=== PATIENT | female | born 1935 | race Caucasian/White ===

== ENCOUNTER → 2016-03-10 | Outpatient (CLI) | payer MEDICARE ==
[~2016-03-10] MED LIST: AMLO5 PO; ATOR20TA15 PO; BUDE1SUS2 EACH NARE; CARV25TA PO; CEPH-460 PO; CHOL1CAP6 PO; CITA10TA4 PO; CITA20 PO; CITA20TA4 PO; CO Q100C9 PO; COUM4TAB PO; CYAN1TAB24; FLAX10008 PO; FLUD.1 PO; GENTGEL EACH EYE; HYDR10TA65 PO; HYDR5TAB64 PO; KCL20 PO; LACTCAP7 PO; LACTCAP8 PO; LIPI20TA PO; MAGN250T11 PO; MAGN250T14 PO; METH10TA6 PO; METHY10 PO; NITR.4 SL; OMEP20TA PO; POTA10CA PO; RAMI10CA PO; RAMI10CA35 PO; REFR0.5D4 EACH EYE; TRAM50TA PO; VITA10002 PO; VITASPR PO; WARF4 PO; [UNRECOGNIZED DRUG - CODE] EACH NARE
[2016-03-10 08:57] LABS: INTERNATIONAL NORMALIZED RATIO 3.4 RATIO; PROTHROMBIN TIME - PATIENT 39.1 SEC (9.8-11.6)
== END ==
LOC: CLAB 08:31
PROVIDERS: ATTEND Internal Medicine Interventional Cardiology
DX: Z79.01 Long term (current) use of anticoagulants (principal)
CPT/HCPCS: 36415; 85610

== ENCOUNTER → 2016-03-15 | Outpatient (CLI) | payer MEDICARE ==
[2016-03-15 12:10] LABS: INTERNATIONAL NORMALIZED RATIO 1.5 RATIO; PROTHROMBIN TIME - PATIENT 17.1 SEC (9.8-11.6)
== END ==
LOC: CLAB 11:37
PROVIDERS: ATTEND Internal Medicine Interventional Cardiology
DX: Z51.81 Encounter for therapeutic drug level monitoring (principal); Z79.01 Long term (current) use of anticoagulants
CPT/HCPCS: 36415; 85610

== ENCOUNTER → 2016-04-01 | Outpatient (CLI) | payer MEDICARE ==
[2016-04-01 10:12] LABS: INTERNATIONAL NORMALIZED RATIO 2.4 RATIO
== END ==
LOC: CLAB 08:48
PROVIDERS: ATTEND Internal Medicine Interventional Cardiology
DX: Z79.01 Long term (current) use of anticoagulants (principal)
CPT/HCPCS: 36415; 85610

== ENCOUNTER → 2016-05-12 | Outpatient (CLI) | payer MEDICARE ==
[~2016-05-12] MED LIST changes: -CHOL1CAP6 PO; -CITA20 PO; -HYDR5TAB64 PO; -KCL20 PO; -LACTCAP7 PO; -LIPI20TA PO; -MAGN250T14 PO; -METH10TA6 PO; -NITR.4 SL; -RAMI10CA35 PO; -VITA10002 PO; -WARF4 PO; -[UNRECOGNIZED DRUG - CODE] EACH NARE
[2016-05-12 08:28] LABS: INTERNATIONAL NORMALIZED RATIO 1.8 RATIO
[2016-05-12 08:50] LABS: BICARBONATE 29.9 MEQ/L (21.0-32.0); POTASSIUM 4.2 MEQ/L (3.5-5.1)
== END ==
LOC: CLAB 05-11 07:48
PROVIDERS: ATTEND Internal Medicine Interventional Cardiology
DX: I42.0 Dilated cardiomyopathy (principal); I50.22 Chronic systolic (congestive) heart failure; Z79.01 Long term (current) use of anticoagulants
CPT/HCPCS: 36415; 80048; 85610

== ENCOUNTER → 2016-05-25 | Outpatient (CLI) | payer MEDICARE ==
[2016-05-25 09:42] LABS: INTERNATIONAL NORMALIZED RATIO 1.8 RATIO; PROTHROMBIN TIME - PATIENT 20.2 SEC (9.8-11.6)
== END ==
LOC: CLAB 09:10
PROVIDERS: ATTEND Internal Medicine Interventional Cardiology
DX: I11.9 Hypertensive heart disease without heart failure (principal); I42.0 Dilated cardiomyopathy; I35.1 Nonrheumatic aortic (valve) insufficiency; R00.2 Palpitations; I44.1 Atrioventricular block, second degree
CPT/HCPCS: 36415; 85610

== ENCOUNTER → 2016-06-08 | Outpatient (CLI) | payer MEDICARE ==
[2016-06-08 09:59] LABS: INTERNATIONAL NORMALIZED RATIO 1.8 RATIO; PROTHROMBIN TIME - PATIENT 20.5 SEC (9.8-11.6)
== END ==
LOC: CLAB 09:20
PROVIDERS: ATTEND Internal Medicine Interventional Cardiology
DX: G45.9 Transient cerebral ischemic attack, unspecified (principal); Z79.01 Long term (current) use of anticoagulants
CPT/HCPCS: 36415; 85610

== ENCOUNTER 2016-06-09 19:36 | Emergency (ER) | payer MEDICARE ==
[~2016-06-09] VITALS: Ht 160 cm; Wt 65.0 kg
[~2016-06-09 19:36] MED LIST changes: -AMLO5 PO; -CEPH-460 PO; -CITA10TA4 PO; -CITA20TA4 PO; -COUM4TAB PO; -CYAN1TAB24; -GENTGEL EACH EYE; -HYDR10TA65 PO; -METHY10 PO; -POTA10CA PO; -REFR0.5D4 EACH EYE; -TRAM50TA PO
[2016-06-09 19:40] VITALS: BP 100/57; PULSE 61; RESP 15; TEMP 98.4; O2SAT 97
[2016-06-09] MEDS ORDERED: SODIUM CHLORIDE 0.9% FLUSH 10 ML FLUSH IV FLUSH PRN (23:15)
[2016-06-09] MEDS ORDERED: DICYCLOMINE HCL 20 MG/2 ML VIAL IM ONE (23:15)
[2016-06-09] MEDS ORDERED: CYAN1TAB24 (23:22)
[2016-06-09] MEDS ORDERED: AMLO5 PO (23:22)
[2016-06-09] MEDS ORDERED: CITA10TA4 PO (23:22)
[2016-06-09] MEDS ORDERED: POTA10CA PO (23:22)
[2016-06-09] MEDS ORDERED: METHY10 PO (23:22)
[2016-06-09] MEDS ORDERED: COUM4TAB PO (23:22)
[2016-06-09] MEDS ORDERED: HYDR10TA65 PO (23:22)
--- NOTE | 2016-06-09 23:44 | PD ---
HPI Chief Complaint: Abdominal Pain Time Seen by Provider: 23:11 Travel History International Travel<30 days: No Contact w/Intl Traveler<30days: No Traveled to known affect area: No History of Present Illness HPI Patient is an 80 year old female presents to the er for evaluation of RUQ abdominal and generalized abdominal cramping for the past few hours. Patient has fairly non-specific descriptors "when i lean forward it feels really full", "it feels like things are balling up and getting stuck when i lean forward." Mild nausea without vomiting. No change in bowel habits, no fevers. PFSH Past Medical History Hx Anticoagulant Therapy: Yes (COUMADIN) AAA: Yes (ASCENDING AORTIC ANEURSYM) Anemia: Yes Arthritis: Yes Atrial Fibrillation: Yes Autoimmune Disease: No Blood Disorders: No Anxiety: Yes Depression: Yes Heart Rhythm Problems: Yes Cancer: No Cardiac Catheterization: Yes (AVR; AORTIC ROOT ANEURYSM REPAIR) Cardiovascular Problems: Yes (OPEN HEART SURG-2005, HTN) High Cholesterol: No Chemotherapy: No Chest Pain: Yes Congestive Heart Failure: Yes COPD: Yes Coronary Artery Disease: Yes Diabetes: No Diminished Hearing: No Endocrine: No Gastrointestinal Disorders: Yes (HEMHORROIDS) GERD: Yes Glaucoma: No Genitourinary: Yes Headaches: Yes Hepatitis: No Hiatal Hernia: No Hypertension: Yes Immune Disorder: No Implanted Vascular Access Dvce: Yes Kidney Stones: Yes Medical other: Yes (arthritis) Musculoskeletal: Yes (CERVICAL LAMINECTOMY, SPINAL STENOSIS) Neurologic: Yes Psychiatric: No Reproductive: No Respiratory: No Immunizations Current: Yes Migraines: Yes Myocardial Infarction: No Radiation Therapy: No Renal Failure: Yes (ARF, STENT) Seizures: No Sleep Apnea: Yes (CPAP HS) Thyroid Disease: No PNEUMOCCOCAL Vaccine (Year): 2010 ?: Not Menopausal: Yes : 2 Para: 2 Ovarian Cysts: Yes Past Surgical History Abdominal Aneurysm Repair: Yes (ASCENDING AORTA REPAIR 2005) Abdominal Surgery: Yes AICD: Yes Appendectomy: Yes Arteriovenous Shunt: No Body Medical Devices: AORTIC VALVE REPLACEMENT Cardiac Surgery: Yes (aortic valve, pacemaker placement) Cholecystectomy: Yes Ear Surgery: No Endocrine Surgery: Yes (SHASHI ADRENALS REMOVED-OCTOBER 01, 2013) Eye Surgery: Yes (CATARACT SX BILATERAL) Genitourinary Surgery: No Gynecologic Surgery: Yes Hysterectomy: Yes Insulin Pump: No Joint Replacement: Yes (R HIP) Neurologic Surgery: Yes (brain for tumor) Oral Surgery: No Pacemaker: Yes Thoracic Surgery: Yes (2005) Valve Replacement: Yes (AORTIC VALVE REPLACEMENT ) Other Surgery: Yes (SURGICAL REPAIR HEMATOMA, R ANKLE) Social History Alcohol Use: No Tobacco Use: No Substance Use: No Allergies-Medications (Allergen,Severity, Reaction): Coded Allergies: Bactrim (Verified Allergy, Severe, 06/09/16) due to coumadin intake and digoxin Biaxin (Verified Allergy, Severe, 06/09/16) ON DIGOXIN Ciprofloxacin (Verified Allergy, Severe, 06/09/16) due to taking coumadin and digoxin Flagyl (Verified Allergy, Severe, 06/09/16) because of being on coumadin and digoxin Horse Serum Proteins (Verified Allergy, Severe, PATIENT NOT SURE, 06/09/16) Tetracycline (Verified Allergy, Severe, 06/09/16) due to being on coumadin and digoxin Zithromax (Verified Allergy, Severe, 06/09/16) ON DIGOXIN Ampicillin (Verified Allergy, Unknown, 06/09/16) CAN NOT TAKE D/T COUMADIN Diflucan (Verified Allergy, Unknown, 06/09/16) CAN NOT TAKE D/T COUMADIN MRI PRECAUTION (Verified Adverse Reaction, Severe, NON COMPATIBLE PACEMAKER 11/13/15 LRS, 06/09/16) Uncoded Allergies: no mri (Adverse Reaction, Severe, pacemaker, 11/13/15) pacemaker in place Reported Meds & Prescriptions Reported Meds & Active Scripts Active Tramadol (Tramadol HCl) 50 Mg Tab 50 Mg PO Q6H PRN Reported Norvasc (Amlodipine Besylate) 5 Mg Tab 5 Mg PO DAILY B12 (Cyanocobalamin) 1,000 Mcg Tab DAILY Potassium Chloride ER (Potassium Chloride) 10 Meq Cap 10 Meq PO DAILY Ritalin IR (Methylphenidate HCl) 10 Mg Tab 10 Mg PO DAILY Hydrocortisone 10 Mg Tab 10 Mg PO DIRECTED Take with food to decrease GI upset Coumadin (Warfarin) 4 Mg Tab 4 Mg PO MWF AND 3MG OTHER Citalopram (Citalopram Hydrobromide) 10 Mg Tab 10 Mg PO HS Ramipril 10 Mg Cap 10 Mg PO DAILY Omeprazole 20 Mg Tab 20 Mg PO DAILY Magnesium Oxide 250 Mg Tab 250 Mg PO DAILY Probiotic (Lactobacillus Acidophilus) 1 Cap Cap 1 Cap PO DAILY Fludrocortisone (Fludrocortisone Acetate) 0.1 Mg Tab 0.1 Mg PO MWF Flaxseed Oil [place]-3 (Flaxseed (Linseed)) 1,000 Mg Cap 1 Cap PO DAILY Vitamin D3 (Cholecalciferol) 1,000 Unit/[place] 1,000 PO DAILY Carvedilol 25 Mg Tab 25 Mg PO BID Atorvastatin (Atorvastatin Calcium) 20 Mg Tab 20 Mg PO HS Co Q 10 (Coenzyme Q10 (Ubidecarenone)) 100 Mg Cap 1 Cap PO DAILY Review of Systems Except as stated in HPI: all other systems reviewed are Neg Physical Exam Narrative GENERAL: WD/WN quite pleasant in nad. SKIN: Warm and dry. HEAD: Atraumatic. Normocephalic. EYES: Pupils equal and round. No scleral icterus. No injection or drainage. ENT: No nasal bleeding or discharge. Mucous membranes pink and moist. NECK: Trachea midline. No JVD. CARDIOVASCULAR: Regular rate and rhythm. RESPIRATORY: No accessory muscle use. Clear to auscultation. Breath sounds equal bilaterally. GASTROINTESTINAL: Abdomen soft, non-tender, nondistended. Hepatic and splenic margins not palpable. MUSCULOSKELETAL: Extremities without clubbing, cyanosis, or edema. No obvious deformities. NEUROLOGICAL: Awake and alert. No obvious cranial nerve deficits. Motor grossly within normal limits. Five out of 5 muscle strength in the arms and legs. Normal speech. PSYCHIATRIC: Appropriate mood and affect; insight and judgment normal. Data Data Last Documented VS Orders Complete Blood Count With Diff (06/09/16 23:12) Comprehensive Metabolic Panel (06/09/16 23:12) Lipase (06/09/16 23:12) Urinalysis - C+S If Indicated (06/09/16 23:12) Iv Access Insert/Monitor (06/09/16 23:12) Ecg Monitoring (06/09/16 23:12) Oximetry (06/09/16 23:12) Sodium Chloride 0.9% Flush (Ns Flush) (06/09/16 23:15) Electrocardiogram (06/09/16 23:12) Dicyclomine Inj (Bentyl Inj) (06/09/16 23:15) Troponin I (06/09/16 23:12) Acetaminophen (Tylenol) (06/10/16 01:45) Ct Abd/Pel W/O Iv Contrast (06/10/16 ) Labs Laboratory Tests Test 06/09/16 06/09/16 23:35 23:55 Sodium Level 138 MEQ/L Potassium Level 4.5 MEQ/L Chloride Level 103 MEQ/L Carbon Dioxide Level 29.6 MEQ/L Anion Gap 5 MEQ/L Blood Urea Nitrogen 19 MG/DL Creatinine 1.15 MG/DL Estimat Glomerular Filtration 45 ML/MIN Rate Random Glucose 83 MG/DL Calcium Level 9.2 MG/DL Total Bilirubin 0.8 MG/DL Aspartate Amino Transf 22 U/L (AST/SGOT) Alanine Aminotransferase 18 U/L (ALT/SGPT) Alkaline Phosphatase 49 U/L Troponin I LESS THAN 0.02 NG/ML Total Protein 6.4 GM/DL Albumin 3.8 GM/DL Lipase 227 U/L Urine Color LIGHT-YELLOW Urine Turbidity CLEAR Urine pH 7.0 Urine Specific [place] 1.007 Urine Protein NEG mg/dL Urine Glucose (UA) NEG mg/dL Urine Ketones NEG mg/dL Urine Occult Blood NEG Urine Nitrite NEG Urine Bilirubin NEG Urine Urobilinogen LESS THAN 2.0 MG/DL Urine Leukocyte Esterase NEG Urine WBC 2 /hpf Urine Mucus FEW /lpf Microscopic Urinalysis Comment CULT NOT INDICATED MDM Medical Decision Making Medical Screen Exam Complete: Yes Emergency Medical Condition: Yes Differential Diagnosis Abdominal cramping, acute abdomen unlikely, UTI, cholecystitis, SBO, Pancreatitis. Narrative Course Roomed in ED. Has benign abdominal exam. Non toxic appearance. Initial workup including EKG, CBC, CMP, TN, Lipase, UA all show no source of discomfort. CT examination shows: Last 24 hours Impressions Abdomen/Pelvis CT 06/10/16 0000 Signed Impressions: Service Date/Time: June 01:28 - CONCLUSION: 1. 6.3 x 2.7 cm area of increased density involving the omentum. The density is still approaching that of fat. I feel this relates to an acute inflammatory process. I would suggest a short term followup CT of the abdomen to document stability. I would suggest this be performed in 3-6 months. 2. Colonic diverticulosis without acute inflammation. 3. Prior cholecystectomy. 4. Cardiomegaly. 5. Chronic interstitial changes within the lung bases. 6. 3 mm nonobstructing right renal stone. Gee Kimball Jr., MD Discussed results with patient and . They are relieved. No definative cause of abdominal discomfort isolated. Discussed follow up with PCP and return to ED criteria. Diagnosis Primary Impression: Abdominal cramping Med/Other Pt SpecificInfo: Prescription(s) given Scripts Tramadol 50 Mg Tab50 Mg PO Q6H PRN (PAIN) #20 TAB Ref 0 Prov:Nura Cunningham MD 06/10/16 Disposition: 01 DISCHARGE HOME Condition: Stable Nura Cunningham MD Jun 09, 2016 23:44
[2016-06-09 23:47] LABS: AUTOMATED NEUTROPHIL # 4.2 TH/MM3 (1.8-7.7); BASOPHIL # 0.1 TH/MM3 (0-0.2); BASOPHIL % 1.1 % (0.0-2.0); EOSINOPHIL % 0.7 % (0.0-4.0); HEMATOCRIT 38.4 % (35.0-46.0); HEMO FLAGS DIFF FINAL; LYMPH % 20.9 % (9.0-44.0); LYMPHOCYTE # 1.3 TH/MM3 (1.0-4.8); MEAN CORPUSCULAR HEMOGLOBIN 29.6 PG (27.0-34.0); MEAN CORPUSCULAR HGB CONC 32.9 % (32.0-36.0); NEUT % 67.3 % (16.0-70.0); PLATELET COUNT 159 TH/MM3 (150-450); RED BLOOD COUNT 4.26 MIL/MM3 (4.00-5.30); RED CELL DISTRIBUTION WIDTH 15.9 % (11.6-17.2); WHITE BLOOD COUNT 6.2 TH/MM3 (4.0-11.0)
[2016-06-10 00:06] LABS: ALKALINE PHOSPHATASE 49 U/L (45-117); TOTAL BILIRUBIN ADULT 0.8 MG/DL (0.2-1.0)
[2016-06-10 00:09] LABS: ALT (GPT) 18 U/L (10-53); ANION GAP 5 MEQ/L (5-15); AST (GOT) 22 U/L (15-37); BICARBONATE 29.6 MEQ/L (21.0-32.0); BLOOD UREA NITROGEN 19 MG/DL (7-18); CHLORIDE 103 MEQ/L (98-107); GLOMERULAR FILTRATION RATE 45 ML/MIN (>89); POTASSIUM 4.5 MEQ/L (3.5-5.1); SODIUM (NA) 138 MEQ/L (136-145)
[2016-06-10 00:23] LABS: BLOOD, URINE NEG (NEG); COMMENT (UR) CULT NOT INDICATED; CULTURE IF INDICATED CULT NOT INDICATED; GLUCOSE,URINE NEG (NEG); KETONE, URINE NEG (NEG); MUCUS URINE FEW /lpf (OCC); NITRITE,URINE NEG (NEG); URINE COLOR LIGHT-YELLOW (YELLW/STRAW)
[2016-06-10 01:01] VITALS: RESP 18; O2SAT 97
[2016-06-10] MEDS ORDERED: ACETAMINOPHEN 325 MG TAB PO ONE (01:45)
--- NOTE | 2016-06-10 01:51 | RADRPT ---
EXAM DATE/TIME: 06/10/2016 01:28 [facility] COMPARISON: No previous studies available for comparison. INDICATIONS : Abdomen pain. ORAL CONTRAST: No oral contrast ingested. RADIATION DOSE: 9.96 CTDIvol (mGy) MEDICAL HISTORY : Aneurysm, abdominal. Cardiovascular disease Hypertension.COPD SURGICAL HISTORY : Abdominal aortic aneurysm repair. Appendectomy.Hysterectomy.GB Pacemaker Aortiv valve ENCOUNTER: Initial ACUITY: 1 day PAIN SCALE: 3/10 LOCATION: abdomen TECHNIQUE: Volumetric scanning of the abdomen and pelvis was performed. Using automated exposure control and ad justment of the mA and/or kV according to patient size, radiation dose was kept as low as reasonably achievable to obtain optimal diagnostic quality images. FINDINGS: LOWER LUNGS: Mild bronchiectasis within the right lung base. Mild chronic interstitial changes within both lung ba ses. Heart is mildly enlarged. Coronary artery atherosclerotic calcifications noted. LIVER: Homogeneous density without lesion. There is no dilation of the biliary tree. The gallbladder is alba gically absent. SPLEEN: Normal size without lesion. PANCREAS: Within normal limits. KIDNEYS: Cortical scarring is seen involving the upper pole the left kidney. A 3 mm faintly calcified nonobstr ucting right renal stone. No hydronephrosis involving either kidney. ADRENAL GLANDS: Within normal limits. VASCULAR: He aorta is diffusely calcified. No aneurysmal change is observed. BOWEL/MESENTERY: There is an oval-shaped area of increased density involving the omentum. This projects between the le ft lobe of the liver and anterior abdominal wall. It measures 6.3 x 2.7 cm. The bowel structures are otherwise unremarkable with exception of scattered colonic diverticuli. Small bowel and stomach are n ormal. ABDOMINAL WALL: Within normal limits. RETROPERITONEUM: There is no lymphadenopathy. BLADDER: No wall thickening or mass. REPRODUCTIVE: Within normal limits. INGUINAL: There is no lymphadenopathy or hernia. MUSCULOSKELETAL: A scoliotic and degenerative lumbar spine. Right hip prosthesis. CONCLUSION: 1. 6.3 x 2.7 cm area of increased density involving the omentum. The density is still approaching breana t of fat. I feel this relates to an acute inflammatory process. I would suggest a short term followup CT of the abdomen to document stability. I would suggest this be performed in 3-6 months. 2. Colonic diverticulosis without acute inflammation. 3. Prior cholecystectomy. 4. Cardiomegaly. 5. Chronic interstitial changes within the lung bases. 6. 3 mm nonobstructing right renal stone. Gee Kimball Jr., MD on June 10, 2016 at 1:44 Board Certified Radiologist. This report was verified electronically.
[2016-06-10] MEDS ORDERED: TRAM50TA PO (02:18)
--- NOTE | 2016-06-10 12:50 | EKG ---
Date Performed: 06/10/2016 Time Performed: 00:22:24 PTAGE: 80 years EKG: ELECTRONIC ATRIAL PACEMAKER ELECTRONIC VENTRICULAR PACEMAKER ABNORMAL RHYTHM ECG PREVIOUS TRACING : 11/14/2015 09.28 Compared to prior tracing no significant change DOCTOR: Federico Shine Interpretating Date/Time 06/10/2016 12:49:03
[2016-08-24] MEDS ORDERED: GENTGEL EACH EYE (15:47)
[2016-08-24] MEDS ORDERED: REFR0.5D4 EACH EYE (15:47)
== END 2016-06-10 02:49 | disposition home or self-care (01) ==
LOC: NEPC 19:36
DX: R10.84 Generalized abdominal pain (principal); I10 Essential (primary) hypertension; I25.10 Atherosclerotic heart disease of native coronary artery without angina pectoris; I50.9 Heart failure, unspecified; R94.31 Abnormal electrocardiogram [ECG] [EKG]
CPT/HCPCS: 74176; 80053; 81001; 83690; 84484; 85025; 93005; 96372; 99284; J0500

== ENCOUNTER → 2016-06-21 | Outpatient (CLI) | payer MEDICARE ==
[~2016-06-21] MED LIST changes: +AMLO5 PO; -BUDE1SUS2 EACH NARE; +CEPH-460 PO; +CITA10TA4 PO; +CITA20TA4 PO; +COUM4TAB PO; +CYAN1TAB24; +GENTGEL EACH EYE; +HYDR10TA65 PO; +METHY10 PO; +POTA10CA PO; +REFR0.5D4 EACH EYE; +TRAM50TA PO
[2016-06-21 08:51] LABS: HEMATOCRIT 37.5 % (35.0-46.0); MEAN CELL VOLUME 90.8 FL (80.0-100.0); MEAN CORPUSCULAR HEMOGLOBIN 30.5 PG (27.0-34.0); MEAN CORPUSCULAR HGB CONC 33.6 % (32.0-36.0); PLATELET COUNT 167 TH/MM3 (150-450); RED BLOOD COUNT 4.13 MIL/MM3 (4.00-5.30); RED CELL DISTRIBUTION WIDTH 16.2 % (11.6-17.2); REVIEW FLAG FINAL; WHITE BLOOD COUNT 6.4 TH/MM3 (4.0-11.0)
[2016-06-21 09:23] LABS: ALKALINE PHOSPHATASE 54 U/L (45-117); ALT (GPT) 18 U/L (10-53); ANION GAP 6 MEQ/L (5-15); AST (GOT) 18 U/L (15-37); BICARBONATE 30.1 MEQ/L (21.0-32.0); BLOOD UREA NITROGEN 15 MG/DL (7-18); CHLORIDE 106 MEQ/L (98-107); GLOMERULAR FILTRATION RATE 43 ML/MIN (>89); GLUCOSE,FASTING 75 MG/DL (74-99); HDL CHOLESTEROL 88.9 MG/DL (40.0-60.0); LDL CHOLESTEROL 22 MG/DL (0-99); POTASSIUM 4.2 MEQ/L (3.5-5.1); SODIUM (NA) 142 MEQ/L (136-145); TOTAL BILIRUBIN ADULT 0.7 MG/DL (0.2-1.0)
== END ==
LOC: CLAB 08:10
PROVIDERS: ATTEND Family Medicine
DX: G45.9 Transient cerebral ischemic attack, unspecified (principal); H34.00 Transient retinal artery occlusion, unspecified eye; M79.2 Neuralgia and neuritis, unspecified; I42.8 Other cardiomyopathies; Z95.2 Presence of prosthetic heart valve; I10 Essential (primary) hypertension; E27.1 Primary adrenocortical insufficiency
CPT/HCPCS: 36415; 80053; 80061; 84443; 85027

== ENCOUNTER → 2016-06-25 | Outpatient (CLI) | payer MEDICARE ==
[2016-06-25 11:23] LABS: INTERNATIONAL NORMALIZED RATIO 2.2 RATIO; PROTHROMBIN TIME - PATIENT 25.7 SEC (9.8-11.6)
== END ==
LOC: CLAB 10:52
PROVIDERS: ATTEND Internal Medicine Interventional Cardiology
DX: G45.9 Transient cerebral ischemic attack, unspecified (principal); Z79.01 Long term (current) use of anticoagulants
CPT/HCPCS: 36415; 85610

== ENCOUNTER → 2016-06-28 | Outpatient (CLI) | payer MEDICARE ==
--- NOTE | 2016-06-30 08:48 | RSPPFT ---
DATE OF PROCEDURE: 06/28/16 COMMENTS: VOLUMES DYNAMIC: FVC and FEV1 normal. STATIC: TLC, RV and FRC normal. FLOWS: FEV1% and FEF 25-75 normal. DIFFUSION: Mildly reduced. FLOW VOLUME LOOP: Normal configuration. IMPRESSION: Essentially normal pulmonary functions with no reduction in volumes or flows. There is no response to bronchodilator and airways resistance is normal. There is a mild reduction in diffusion at 52%.
== END ==
LOC: HRSP 10:39
PROVIDERS: ATTEND Internal Medicine
DX: J84.10 Pulmonary fibrosis, unspecified (principal)
CPT/HCPCS: 94060; 94620; 94726; 94729

== ENCOUNTER → 2016-07-12 | Outpatient (CLI) | payer MEDICARE ==
[2016-07-12 10:58] LABS: INTERNATIONAL NORMALIZED RATIO 1.8 RATIO; PROTHROMBIN TIME - PATIENT 19.9 SEC (9.8-11.6)
== END ==
LOC: CLAB 09:45
PROVIDERS: ATTEND Internal Medicine Interventional Cardiology
DX: G45.9 Transient cerebral ischemic attack, unspecified (principal); Z79.01 Long term (current) use of anticoagulants
CPT/HCPCS: 36415; 85610

== ENCOUNTER → 2016-07-19 | Outpatient (CLI) | payer MEDICARE ==
[~2016-07-19] MED LIST changes: +COUM3TAB PO; +COUM5TAB PO; +HYDR5TAB64 PO
[2016-07-19 08:37] LABS: HEMATOCRIT 38.9 % (35.0-46.0); MEAN CELL VOLUME 90.4 FL (80.0-100.0); MEAN CORPUSCULAR HEMOGLOBIN 29.3 PG (27.0-34.0); MEAN CORPUSCULAR HGB CONC 32.4 % (32.0-36.0); PLATELET COUNT 147 TH/MM3 (150-450); RED CELL DISTRIBUTION WIDTH 16.4 % (11.6-17.2); REVIEW FLAG FINAL; WHITE BLOOD COUNT 5.8 TH/MM3 (4.0-11.0)
== END ==
LOC: CLAB 08:06
PROVIDERS: ATTEND Internal Medicine Interventional Cardiology
DX: R06.02 Shortness of breath (principal); I50.9 Heart failure, unspecified; Z79.01 Long term (current) use of anticoagulants
CPT/HCPCS: 36415; 83880; 85027

== ENCOUNTER → 2016-07-29 | Outpatient (CLI) | payer MEDICARE ==
[2016-07-29 11:47] LABS: INTERNATIONAL NORMALIZED RATIO 2.3 RATIO; PROTHROMBIN TIME - PATIENT 26.2 SEC (9.8-11.6)
== END ==
LOC: CLAB 10:49
PROVIDERS: ATTEND Internal Medicine Interventional Cardiology
DX: G45.9 Transient cerebral ischemic attack, unspecified (principal); Z79.01 Long term (current) use of anticoagulants
CPT/HCPCS: 36415; 85610

== ENCOUNTER → 2016-08-19 | Outpatient (CLI) | payer MEDICARE ==
[2016-08-19 11:36] LABS: INTERNATIONAL NORMALIZED RATIO 2.7 RATIO; PROTHROMBIN TIME - PATIENT 31.5 SEC (9.8-11.6)
== END ==
LOC: CLAB 11:00
PROVIDERS: ATTEND Internal Medicine Interventional Cardiology
DX: G45.9 Transient cerebral ischemic attack, unspecified (principal); Z79.01 Long term (current) use of anticoagulants
CPT/HCPCS: 36415; 85610

== ENCOUNTER 2016-08-21 15:28 | Emergency (ER) | payer MEDICARE ==
[~2016-08-21] VITALS: Ht 160 cm; Wt 65.0 kg
[~2016-08-21 15:28] MED LIST changes: -CEPH-460 PO; -CITA20TA4 PO; -COUM3TAB PO; -COUM5TAB PO; -GENTGEL EACH EYE; -HYDR5TAB64 PO; -REFR0.5D4 EACH EYE
[2016-08-21 15:30] VITALS: BP 132/67; PULSE 62; RESP 20; TEMP 98.4; O2SAT 94
[2016-08-21 15:54] VITALS: BP 146/77; PULSE 59; RESP 16; TEMP 98.3; O2SAT 98
--- NOTE | 2016-08-21 16:09 | PD ---
HPI Chief Complaint: Dizziness Time Seen by Provider: 16:08 Travel History International Travel<30 days: No Contact w/Intl Traveler<30days: No Traveled to known affect area: No History of Present Illness HPI 80-year-old female with a history of CAD, hypertension, hyperlipidemia, [place]' s disease status post bilateral adrenalectomy on steroids, pituitary tumor status post resection, heart failure, aortic valve and root replacement with bioprosthetic valve, AICD pacemaker presents to the emergency department for evaluation of blurred vision and sparkling vision with dizziness. The patient states that for the past week she's had some blurred vision and feels as though her vision is "sparkly." States that she has had symptoms like this before but she had eye surgery that corrected these symptoms. States that today she began to feel lightheaded, weak and felt as though she was going to pass out. States she's had nausea for the past week with no vomiting. Denies any one-sided weakness, slurred speech, facial droop, numbness or tingling, fever, chills, cough or cold symptoms. Denies any other complaints. PFSH Past Medical History Hx Anticoagulant Therapy: Yes (CUMIDIN ) AAA: Yes (ASCENDING AORTIC ANEURSYM) Anemia: Yes Arthritis: Yes Atrial Fibrillation: Yes Autoimmune Disease: No Blood Disorders: No Anxiety: Yes Depression: Yes Heart Rhythm Problems: Yes Cancer: No Cardiac Catheterization: Yes (AVR; AORTIC ROOT ANEURYSM REPAIR) Cardiovascular Problems: Yes (AORTIC VALVE REPLACED, CHF) High Cholesterol: No Chemotherapy: No Chest Pain: Yes Congestive Heart Failure: Yes COPD: Yes Cerebrovascular Accident: Yes (TIA ) Coronary Artery Disease: Yes Diabetes: No Diminished Hearing: No Endocrine: No Gastrointestinal Disorders: Yes (HEMHORROIDS) GERD: Yes Glaucoma: No Genitourinary: Yes Headaches: Yes Hepatitis: No Hiatal Hernia: No Hypertension: Yes Immune Disorder: No Implanted Vascular Access Dvce: Yes Kidney Stones: Yes Medical other: Yes (arthritis) Musculoskeletal: Yes (CERVICAL LAMINECTOMY, SPINAL STENOSIS) Neurologic: Yes Psychiatric: No Reproductive: No Respiratory: No Immunizations Current: Yes Migraines: Yes Myocardial Infarction: No Radiation Therapy: No Renal Failure: Yes (ARF, STENT) Seizures: No Sleep Apnea: Yes (CPAP HS) Thyroid Disease: No PNEUMOCCOCAL Vaccine (Year): 2010 Menopausal: Yes : 2 Para: 2 Ovarian Cysts: Yes Past Surgical History Abdominal Aneurysm Repair: Yes (ASCENDING AORTA REPAIR 2005) Abdominal Surgery: Yes AICD: Yes Appendectomy: Yes Arteriovenous Shunt: No Body Medical Devices: AORTIC VALVE REPLACEMENT Cardiac Surgery: Yes (aortic valve, pacemaker placement) Cholecystectomy: Yes Ear Surgery: No Endocrine Surgery: Yes (SHASHI ADRENALS REMOVED-OCTOBER 01, 2013) Eye Surgery: Yes (CATARACT SX BILATERAL) Genitourinary Surgery: No Gynecologic Surgery: Yes Hysterectomy: Yes Insulin Pump: No Joint Replacement: Yes (R HIP) Neurologic Surgery: Yes (brain for tumor) Oral Surgery: No Pacemaker: Yes Thoracic Surgery: Yes (2005) Valve Replacement: Yes (AORTIC VALVE REPLACEMENT ) Other Surgery: Yes (SURGICAL REPAIR HEMATOMA, R ANKLE) Social History Alcohol Use: No Tobacco Use: No Substance Use: No Allergies-Medications (Allergen,Severity, Reaction): Coded Allergies: Bactrim (Verified Allergy, Severe, 08/21/16) due to coumadin intake and digoxin Biaxin (Verified Allergy, Severe, 08/21/16) ON DIGOXIN Ciprofloxacin (Verified Allergy, Severe, 08/21/16) due to taking coumadin and digoxin Flagyl (Verified Allergy, Severe, 08/21/16) because of being on coumadin and digoxin Horse Serum Proteins (Verified Allergy, Severe, PATIENT NOT SURE, 08/21/16) Tetracycline (Verified Allergy, Severe, 08/21/16) due to being on coumadin and digoxin Zithromax (Verified Allergy, Severe, 08/21/16) ON DIGOXIN Ampicillin (Verified Allergy, Unknown, 08/21/16) CAN NOT TAKE D/T COUMADIN Diflucan (Verified Allergy, Unknown, 08/21/16) CAN NOT TAKE D/T COUMADIN MRI PRECAUTION (Verified Adverse Reaction, Severe, NON COMPATIBLE PACEMAKER 11/13/15 LRS, 08/21/16) Uncoded Allergies: no mri (Adverse Reaction, Severe, pacemaker, 11/13/15) pacemaker in place Reported Meds & Prescriptions Reported Meds & Active Scripts Active Reported Citalopram (Citalopram Hydrobromide) 20 Mg Tab 20 Mg PO DAILY B12 (Cyanocobalamin) 1,000 Mcg Tab DAILY Potassium Chloride ER (Potassium Chloride) 10 Meq Cap 10 Meq PO DAILY Ritalin IR (Methylphenidate HCl) 10 Mg Tab 10 Mg PO DAILY Hydrocortisone 10 Mg Tab 10 Mg PO DIRECTED Take with food to decrease GI upset Ramipril 10 Mg Cap 10 Mg PO DAILY Omeprazole 20 Mg Tab 20 Mg PO DAILY Magnesium Oxide 250 Mg Tab 250 Mg PO DAILY Probiotic (Lactobacillus Acidophilus) 1 Cap Cap 1 Cap PO DAILY Fludrocortisone (Fludrocortisone Acetate) 0.1 Mg Tab 0.1 Mg PO MWF Flaxseed Oil [place]-3 (Flaxseed (Linseed)) 1,000 Mg Cap 1 Cap PO DAILY Vitamin D3 (Cholecalciferol) 1,000 Unit/[place] 1,000 PO DAILY Carvedilol 25 Mg Tab 25 Mg PO BID Atorvastatin (Atorvastatin Calcium) 20 Mg Tab 20 Mg PO HS Co Q 10 (Coenzyme Q10 (Ubidecarenone)) 100 Mg Cap 1 Cap PO DAILY Review of Systems Except as stated in HPI: all other systems reviewed are Neg Physical Exam Narrative GENERAL: Well-nourished and well-developed pleasant elderly female patient in no acute distress who is nontoxic appearing. SKIN: Warm and dry. HEAD: Normocephalic and atraumatic. No facial droop. EYES: No injection, drainage, or hyphema noted. PERRLA. EOMI. ENT: No nasal drainage noted. Oropharynx is clear. NECK: Supple and the trachea is midline. CARDIOVASCULAR: Regular rate and rhythm. RESPIRATORY: Breath sounds are equal bilaterally with no accessory muscle use, wheezing, rhonchi, or crackles. GASTROINTESTINAL: Abdomen is soft, non-tender, and nondistended. MUSCULOSKELETAL: No obvious deformities, swelling, cyanosis, or ecchymosis is present throughout the upper and lower extremities. Patient has full range of motion without any signs of neurovascular compromise. Strength 5/5 upper and lower extremities and equal bilaterally. NEUROLOGICAL: Awake, alert, and oriented. Normal speech and gait. Normal heel- to-lopez test. Cranial nerves are grossly intact. Data Data Last Documented VS Vital Signs Date Time Temp Pulse Resp B/P Pulse Ox O2 Delivery O2 Flow Rate FiO2 08/21/16 17:16 60 15 129/81 96 Room Air 08/21/16 15:54 98.3 Orders Electrocardiogram (08/21/16 16:04) Complete Blood Count With Diff (08/21/16 16:04) Comprehensive Metabolic Panel (08/21/16 16:04) Magnesium (Mg) (08/21/16 16:04) Troponin I (08/21/16 16:04) Act Partial Throm Time (Ptt) (08/21/16 16:04) Prothrombin Time / Inr (Pt) (08/21/16 16:04) Urinalysis - C+S If Indicated (08/21/16 16:04) Chest, Single Ap (08/21/16 16:04) Ct Brain W/O Iv Contrast(Rout) (08/21/16 16:04) Ecg Monitoring (08/21/16 16:04) Iv Access Insert/Monitor (08/21/16 16:04) Oximetry (08/21/16 16:04) Sodium Chloride 0.9% Flush (Ns Flush) (08/21/16 16:15) Urine Culture (08/21/16 16:11) Labs Laboratory Tests Test 08/21/16 08/21/16 16:00 16:11 White Blood Count 6.9 TH/MM3 Red Blood Count 4.35 MIL/MM3 Hemoglobin 12.6 GM/DL Hematocrit 39.1 % Mean Corpuscular Volume 89.9 FL Mean Corpuscular Hemoglobin 28.9 PG Mean Corpuscular Hemoglobin 32.1 % Concent Red Cell Distribution Width 16.2 % Platelet Count 164 TH/MM3 Mean Platelet Volume 7.8 FL Neutrophils (%) (Auto) 78.8 % Lymphocytes (%) (Auto) 12.9 % Monocytes (%) (Auto) 7.0 % Eosinophils (%) (Auto) 0.6 % Basophils (%) (Auto) 0.7 % Neutrophils # (Auto) 5.4 TH/MM3 Lymphocytes # (Auto) 0.9 TH/MM3 Monocytes # (Auto) 0.5 TH/MM3 Eosinophils # (Auto) 0.0 TH/MM3 Basophils # (Auto) 0.0 TH/MM3 CBC Comment DIFF FINAL Differential Comment Prothrombin Time 34.7 SEC Prothromb Time International 3.0 RATIO Ratio Activated Partial 35.4 SEC Thromboplast Time Sodium Level 135 MEQ/L Potassium Level 4.7 MEQ/L Chloride Level 100 MEQ/L Carbon Dioxide Level 24.7 MEQ/L Anion Gap 10 MEQ/L Blood Urea Nitrogen 17 MG/DL Creatinine 1.00 MG/DL Estimat Glomerular Filtration 53 ML/MIN Rate Random Glucose 90 MG/DL Calcium Level 8.8 MG/DL Magnesium Level 2.0 MG/DL Total Bilirubin 0.7 MG/DL Aspartate Amino Transf 24 U/L (AST/SGOT) Alanine Aminotransferase 20 U/L (ALT/SGPT) Alkaline Phosphatase 62 U/L Troponin I LESS THAN 0.02 NG/ML Total Protein 6.2 GM/DL Albumin 3.3 GM/DL Urine Color LIGHT-YELLOW Urine Turbidity HAZY Urine pH 7.5 Urine Specific [place] 1.007 Urine Protein NEG mg/dL Urine Glucose (UA) NEG mg/dL Urine Ketones NEG mg/dL Urine Occult Blood NEG Urine Nitrite NEG Urine Bilirubin NEG Urine Urobilinogen LESS THAN 2.0 MG/DL Urine Leukocyte Esterase TRACE Urine RBC 3 /hpf Urine WBC 9 /hpf Urine Mucus FEW /lpf Microscopic Urinalysis Comment CULTURE INDICATED MDM Medical Decision Making Medical Screen Exam Complete: Yes Emergency Medical Condition: Yes Differential Diagnosis Electrolyte abnormality versus dehydration versus orthostatic hypotension versus TIA versus chronic visual changes Narrative Course 80-year-old female presents to the emergency department for evaluation of visual changes and lightheadedness. Patient is afebrile, vital signs are stable. Physical examination is essentially unremarkable. IV access is obtained, labs drawn and sent. Patient is placed on cardiac telemetry and pulse oximetry monitoring. EKG shows electronic atrial pacemaker, no acute findings. CBC is unremarkable. CMP is unremarkable. Troponin is less than 0.02. Coags show INR is therapeutic at 3.0. Urinalysis shows trace leukocyte esterase, 9 white blood cells, few mucus. Cultures pending. Chest x-ray shows trace left base atelectasis, no acute abnormalities. Head CT is negative for any acute abnormalities. Patient has remained stable and without complaint while here in the emergency department. The patient's laboratory studies and imaging are all reassuring. There are no acute findings noted. She has appointments with both her store facility technician and her plant sciences professor at the beginning of this week, only 3 days from now. States she is scheduled to have a echocardiogram and a nuclear medicine stress test with her plant sciences professor this week. My attending physician Dr. Flores also evaluated the patient and we agreed that she is stable to be discharged to home and follow up with an outpatient with her specialists. I will give her keflex for the wbc's in her urine. Patient and family verbalize understanding and are in agreement with treatment plan. Diagnosis Primary Impression: Episodic lightheadedness Additional Impressions: Change in vision UTI (urinary tract infection) Qualified Code: N39.0 - Urinary tract infection without hematuria, site unspecified Patient Instructions: Blurred Vision (ED), General Instructions, Lightheadedness (ED), Urinary Tract Infection in Women (ED) Additional Instructions: Take medication as prescribed with food and a full glass of water. Follow-up with Dr. Acosta store facility technician and Dr. Balderrama plant sciences professor as scheduled this week. Return to the ED for any acute worsening of symptoms. Scripts Cephalexin (Keflex)500 Mg [id number] Mg PO Q12H 7 Days Ref 0 Prov:Wang Flores MD 08/21/16 Disposition: 01 DISCHARGE HOME Condition: Stable Anabella Osei Aug 21, 2016 16:08
[2016-08-21] MEDS ORDERED: CITA20TA4 PO (16:10)
[2016-08-21 16:11] VITALS: O2SAT 92
[2016-08-21] MEDS ORDERED: SODIUM CHLORIDE 0.9% FLUSH 10 ML FLUSH IVF PRN (16:15)
[2016-08-21 16:49] LABS: AUTOMATED NEUTROPHIL # 5.4 TH/MM3 (1.8-7.7); BASOPHIL % 0.7 % (0.0-2.0); EOSINOPHIL % 0.6 % (0.0-4.0); HEMATOCRIT 39.1 % (35.0-46.0); HEMO FLAGS DIFF FINAL; LYMPH % 12.9 % (9.0-44.0); LYMPHOCYTE # 0.9 TH/MM3 (1.0-4.8); MEAN CELL VOLUME 89.9 FL (80.0-100.0); MEAN CORPUSCULAR HEMOGLOBIN 28.9 PG (27.0-34.0); MEAN CORPUSCULAR HGB CONC 32.1 % (32.0-36.0); NEUT % 78.8 % (16.0-70.0); PLATELET COUNT 164 TH/MM3 (150-450); RED BLOOD COUNT 4.35 MIL/MM3 (4.00-5.30); RED CELL DISTRIBUTION WIDTH 16.2 % (11.6-17.2); WHITE BLOOD COUNT 6.9 TH/MM3 (4.0-11.0)
[2016-08-21 16:53] LABS: BLOOD, URINE NEG (NEG); COMMENT (UR) CULTURE INDICATED; CULTURE IF INDICATED CULTURE INDICATED; GLUCOSE,URINE NEG (NEG); KETONE, URINE NEG (NEG); MUCUS URINE FEW /lpf (OCC); NITRITE,URINE NEG (NEG); PH, URINE 7.5 (5.0-8.5); URINE COLOR LIGHT-YELLOW (YELLW/STRAW)
[2016-08-21 17:00] LABS: PROTHROMBIN TIME - PATIENT 34.7 SEC (9.8-11.6)
[2016-08-21 17:01] LABS: APTT (PATIENT) 35.4 SEC (24.3-30.1)
--- NOTE | 2016-08-21 17:01 | RADRPT ---
EXAM DATE/TIME: 08/21/2016 16:35 [facility] COMPARISON: CHEST SINGLE AP, August 21, 2014, 22:28. INDICATIONS : Palpitations. Vision changes MEDICAL HISTORY : Cardiovascular disease. Aneurysm, abdominal, Hypertension.COPD SURGICAL HISTORY : Appendectomy.Hysterectomy.GB Pacemaker Aortic Valve replacement, Sinusitis ENCOUNTER: Initial ACUITY: 1 day PAIN SCORE: 0/10 LOCATION: Bilateral chest FINDINGS: Trace atelectasis seen left lung base. Right lung is clear. No pleural effusion or pneumothorax seen on either side. Heart size stable, mildly enlarged. Patient has had previous median sternotomy and CABG. There is a c ardiac pacer/defibrillator again noted. CONCLUSION: Trace left base atelectasis. Mild, stable and compensated cardiomegaly. Tru Cosby MD on August 21, 2016 at 16:58 Board Certified Radiologist. This report was verified electronically.
--- NOTE | 2016-08-21 17:09 | RADRPT ---
EXAM DATE/TIME: 08/21/2016 16:58 [facility] COMPARISON: CT BRAIN W/O CONTRAST, November 14, 2015, 7:01. INDICATIONS : Dizziness. Nausea. Visual disturbances. RADIATION DOSE: 36.08 CTDIvol (mGy) MEDICAL HISTORY : Aneurysm, abdominal. Chronic obstructive pulmonary disease. Hypertension.Brain tumor. SURGICAL HISTORY : Abdominal aortic aneurysm repair. Pacemaker.Brain tumor removal. ENCOUNTER: Initial ACUITY: 1 day PAIN SCALE: 0/10 LOCATION: cranial TECHNIQUE: Multiple contiguous axial images were obtained of the head. Using automated exposure control and adj ustment of the mA and/or kV according to patient size, radiation dose was kept as low as reasonably a chievable to obtain optimal diagnostic quality images. FINDINGS: CEREBRUM: The ventricles are normal for age. No evidence of midline shift, mass lesion, hemorrhage or acute in farction. No extra-axial fluid collections are seen. There is chronic low-attenuation in the periven tricular white matter. POSTERIOR FOSSA: The cerebellum and brainstem are intact. The 4th ventricle is midline. The cerebellopontine angle i s unremarkable. EXTRACRANIAL: Severe chronic pansinusitis again noted. There is partially opacified left mastoid air cells similar to before. SKULL: The calvaria is intact. No evidence of skull fracture. CONCLUSION: 1. No acute intracranial abnormality. 2. Chronic white matter changes are again noted. 3. Chronic paranasal sinusitis and apparent left mastoiditis again noted. Tru Cosby MD on August 21, 2016 at 17:05 Board Certified Radiologist. This report was verified electronically.
[2016-08-21 17:16] VITALS: BP 129/81; PULSE 60; RESP 15; O2SAT 96
[2016-08-21 17:19] LABS: ALKALINE PHOSPHATASE 62 U/L (45-117); ALT (GPT) 20 U/L (10-53); TOTAL BILIRUBIN ADULT 0.7 MG/DL (0.2-1.0)
[2016-08-21 17:27] LABS: ANION GAP 10 MEQ/L (5-15); AST (GOT) 24 U/L (15-37); BICARBONATE 24.7 MEQ/L (21.0-32.0); BLOOD UREA NITROGEN 17 MG/DL (7-18); CHLORIDE 100 MEQ/L (98-107); GLOMERULAR FILTRATION RATE 53 ML/MIN (>89); POTASSIUM 4.7 MEQ/L (3.5-5.1); SODIUM (NA) 135 MEQ/L (136-145)
[2016-08-21] MEDS ORDERED: CEPH-460 PO (17:34)
[2016-08-21 18:01] VITALS: BP 128/84; PULSE 64; RESP 18; O2SAT 96
--- NOTE | 2016-08-22 12:26 | EKG ---
Date Performed: 08/21/2016 Time Performed: 16:08:38 PTAGE: 80 years EKG: ELECTRONIC ATRIAL PACEMAKER ELECTRONIC VENTRICULAR PACEMAKER ABNORMAL RHYTHM ECG NO PREVIOUS TRACING DOCTOR: Federico Shine Interpretating Date/Time 08/22/2016 12:23:42
[2016-08-24] MEDS ORDERED: REFR0.5D4 EACH EYE (15:47)
[2016-08-24] MEDS ORDERED: GENTGEL EACH EYE (15:47)
== END 2016-08-21 18:17 | disposition home or self-care (01) ==
LOC: NEPE 15:28
DX: R42 Dizziness and giddiness (principal); N39.0 Urinary tract infection, site not specified; R11.0 Nausea; H53.9 Unspecified visual disturbance; R00.2 Palpitations; R53.1 Weakness; I10 Essential (primary) hypertension; J44.9 Chronic obstructive pulmonary disease, unspecified; Z95.2 Presence of prosthetic heart valve; Z95.0 Presence of cardiac pacemaker; I51.7 Cardiomegaly; J32.4 Chronic pansinusitis; G47.30 Sleep apnea, unspecified; Z87.442 Personal history of urinary calculi; K21.9 Gastro-esophageal reflux disease without esophagitis; Z86.73 Personal history of transient ischemic attack (TIA), and cerebral infarction without residual deficits; I50.9 Heart failure, unspecified; I48.91 Unspecified atrial fibrillation; Z79.01 Long term (current) use of anticoagulants
CPT/HCPCS: 70450; 71010; 80053; 81001; 83735; 84484; 85025; 85610; 85730; 87086; 93005; 99285

== ENCOUNTER 2016-09-08 09:29 | Emergency (ER) | payer MEDICARE ==
[~2016-09-08] VITALS: Ht 160 cm; Wt 65.0 kg
[~2016-09-08 09:29] MED LIST changes: -AMLO5 PO; +CEPH-460 PO; -CITA10TA4 PO; +CITA20TA4 PO; -COUM4TAB PO; +GENTGEL EACH EYE; +REFR0.5D4 EACH EYE; -TRAM50TA PO
[2016-09-08 09:40] VITALS: BP 103/55; PULSE 67; RESP 16; TEMP 98.7; O2SAT 95
[2016-09-08] MEDS ORDERED: SODIUM CHLOR 0.9% 1000 ML INJ 1,000 ML IV ONE ×2 (09:56→11:30)
[2016-09-08] MEDS ORDERED: SODIUM CHLORIDE 0.9% FLUSH 10 ML FLUSH IVF PRN (10:00)
[2016-09-08] MEDS ORDERED: ONDANSETRON HCL 4 MG/2 ML VIAL IV PUSH ONE (10:00)
--- NOTE | 2016-09-08 10:09 | PD ---
HPI . Diarrhea Chief Complaint: GI Complaint Time Seen by Provider: 09:51 Travel History International Travel<30 days: No Contact w/Intl Traveler<30days: No Traveled to known affect area: No History of Present Illness HPI This patient presents along with her with a chief complaint of diarrhea. She states that she has felt queasy for about 4-5 days that just started having loose stools today. She reports 3 loose stools. No emesis. No urinary tract symptoms. No fever. No exacerbating or relieving factor. No pain. PFSH Past Medical History Hx Anticoagulant Therapy: Yes (COUMADIN) AAA: Yes (ASCENDING AORTIC ANEURSYM) Anemia: Yes Arthritis: Yes Atrial Fibrillation: Yes Autoimmune Disease: No Blood Disorders: No Anxiety: Yes Depression: Yes Heart Rhythm Problems: Yes Cancer: No Cardiac Catheterization: Yes (AVR; AORTIC ROOT ANEURYSM REPAIR) Cardiovascular Problems: Yes (AORTIC ANEURYSM) High Cholesterol: No Chemotherapy: No Chest Pain: Yes Congestive Heart Failure: Yes COPD: Yes Cerebrovascular Accident: Yes (TIA ) Coronary Artery Disease: Yes Diabetes: No Diminished Hearing: No Endocrine: No Gastrointestinal Disorders: Yes (HEMHORROIDS) GERD: Yes Glaucoma: No Genitourinary: Yes Headaches: Yes Hepatitis: No Hiatal Hernia: No Hypertension: Yes Immune Disorder: No Implanted Vascular Access Dvce: Yes Kidney Stones: Yes Medical other: Yes (arthritis) Musculoskeletal: Yes (CERVICAL LAMINECTOMY, SPINAL STENOSIS) Neurologic: Yes Psychiatric: No Reproductive: No Respiratory: No Immunizations Current: Yes Migraines: Yes Myocardial Infarction: No Radiation Therapy: No Renal Failure: Yes (ARF, STENT) Seizures: No Sleep Apnea: Yes (CPAP HS) Thyroid Disease: No PNEUMOCCOCAL Vaccine (Year): 2010 ?: Not Menopausal: Yes : 2 Para: 2 Ovarian Cysts: Yes Past Surgical History Abdominal Aneurysm Repair: Yes (ASCENDING AORTA REPAIR 2005) Abdominal Surgery: Yes AICD: Yes Appendectomy: Yes Arteriovenous Shunt: No Body Medical Devices: AORTIC VALVE REPLACEMENT Cardiac Surgery: Yes (aortic valve, pacemaker placement) Cholecystectomy: Yes Ear Surgery: No Endocrine Surgery: Yes (SHASHI ADRENALS REMOVED-OCTOBER 01, 2013) Eye Surgery: Yes (CATARACT SX BILATERAL) Genitourinary Surgery: No Gynecologic Surgery: Yes Hysterectomy: Yes Insulin Pump: No Joint Replacement: Yes (R HIP) Neurologic Surgery: Yes (brain for tumor) Oral Surgery: No Pacemaker: Yes Thoracic Surgery: Yes (2005) Valve Replacement: Yes (AORTIC VALVE REPLACEMENT ) Other Surgery: Yes (SURGICAL REPAIR HEMATOMA, R ANKLE) Social History Alcohol Use: No Tobacco Use: No Substance Use: No Allergies-Medications (Allergen,Severity, Reaction): Coded Allergies: Bactrim (Verified Allergy, Severe, 09/08/16) due to coumadin intake and digoxin Biaxin (Verified Allergy, Severe, 09/08/16) ON DIGOXIN Ciprofloxacin (Verified Allergy, Severe, 09/08/16) due to taking coumadin and digoxin Flagyl (Verified Allergy, Severe, 09/08/16) because of being on coumadin and digoxin Horse Serum Proteins (Verified Allergy, Severe, PATIENT NOT SURE, 09/08/16) Tetracycline (Verified Allergy, Severe, 09/08/16) due to being on coumadin and digoxin Zithromax (Verified Allergy, Severe, 09/08/16) ON DIGOXIN Ampicillin (Verified Allergy, Unknown, 09/08/16) CAN NOT TAKE D/T COUMADIN Diflucan (Verified Allergy, Unknown, 09/08/16) CAN NOT TAKE D/T COUMADIN MRI PRECAUTION (Verified Adverse Reaction, Severe, NON COMPATIBLE PACEMAKER 11/13/15 LRS, 09/08/16) Uncoded Allergies: no mri (Adverse Reaction, Severe, pacemaker, 11/13/15) pacemaker in place Reported Meds & Prescriptions Reported Meds & Active Scripts Active Reported Coumadin (Warfarin) 5 Mg Tab 5 Mg PO DAILY M,W,F Coumadin (Warfarin) 3 Mg Tab 3 Mg PO DAILY T,TH,S Hydrocortisone 5 Mg Tab 5 Mg PO AC DINNER Take with food to decrease GI upset Hydrocortisone 10 Mg Tab 10 Mg PO BID Take with food to decrease GI upset Genteal Gel Drops (Carboxymethylcell/Hypromellose) 25 Ml Drp.lq.gel 1 Drop EACH EYE HS Refresh Tears Opth Drops (Carboxymethylcellulose Sodium Opth Drops) 0.5% Drops 1 Drop EACH EYE PRN Citalopram (Citalopram Hydrobromide) 20 Mg Tab 20 Mg PO DAILY B12 (Cyanocobalamin) 1,000 Mcg Tab DAILY Potassium Chloride ER (Potassium Chloride) 10 Meq Cap 10 Meq PO DAILY Ritalin IR (Methylphenidate HCl) 10 Mg Tab 10 Mg PO DAILY Ramipril 10 Mg Cap 10 Mg PO BID Omeprazole 20 Mg Tab 20 Mg PO BID Magnesium Oxide 250 Mg Tab 250 Mg PO DAILY Probiotic (Lactobacillus Acidophilus) 1 Cap Cap 1 Cap PO DAILY Fludrocortisone (Fludrocortisone Acetate) 0.1 Mg Tab 0.05 Mg PO MWF Flaxseed Oil [place]-3 (Flaxseed (Linseed)) 1,000 Mg Cap 1 Cap PO DAILY Vitamin D3 (Cholecalciferol) 1,000 Unit/[place] 1,000 PO DAILY Carvedilol 25 Mg Tab 25 Mg PO BID Atorvastatin (Atorvastatin Calcium) 20 Mg Tab 20 Mg PO HS Co Q 10 (Coenzyme Q10 (Ubidecarenone)) 100 Mg Cap 1 Cap PO DAILY Review of Systems Except as stated in HPI: all other systems reviewed are Neg General / Constitutional: No: Fever, Chills Gastrointestinal: Positive: Nausea, Diarrhea, No: Vomiting, Abdominal Pain Genitourinary: No: Urgency, Frequency, Dysuria Physical Exam Narrative Vital Signs Date Time Temp Pulse Resp B/P Pulse Ox O2 Delivery O2 Flow Rate FiO2 09/08/16 09:40 98.7 67 16 103/55 95 Room Air GENERAL: Patient is awake and alert and in no acute distress. SKIN: Warm and dry. HEAD: Atraumatic. Normocephalic. EYES: Pupils equal and round. Extraocular movements are intact. ENT: No nasal bleeding or discharge. Mucous membranes pink and moist. NECK: Trachea midline. Neck is supple. CARDIOVASCULAR: Regular rate and rhythm. Heart sounds are normal. RESPIRATORY: No accessory muscle use. Lungs are clear with full air movement throughout. GASTROINTESTINAL: Abdomen soft, non-tender, nondistended. MUSCULOSKELETAL: No obvious deformities. No edema. NEUROLOGICAL: Awake and alert. No obvious cranial nerve deficits. Motor grossly within normal limits. Normal speech. PSYCHIATRIC: Appropriate mood and affect; insight and judgment normal. Data Data Last Documented VS Vital Signs Date Time Temp Pulse Resp B/P Pulse Ox O2 Delivery O2 Flow Rate FiO2 09/08/16 09:40 98.7 67 16 103/55 95 Room Air Orders Complete Blood Count With Diff (09/08/16 09:56) Comprehensive Metabolic Panel (09/08/16 09:56) Urinalysis - C+S If Indicated (09/08/16 09:56) Iv Access Insert/Monitor (09/08/16 09:56) Sodium Chlor 0.9% 1000 Ml Inj (Ns 1000 M (09/08/16 09:56) Sodium Chloride 0.9% Flush (Ns Flush) (09/08/16 10:00) Blood Culture (09/08/16 09:56) C Diff Toxin Pcr (09/08/16 09:56) Enteric Path (Stool) (09/08/16 09:56) Ondansetron Inj (Zofran Inj) (09/08/16 10:00) Ns (Bolus) Inj (09/08/16 11:30) Prothrombin Time / Inr (Pt) (09/08/16 11:40) Labs Laboratory Tests Test 09/08/16 09/08/16 10:14 11:37 White Blood Count 7.9 TH/MM3 Red Blood Count 4.29 MIL/MM3 Hemoglobin 12.3 GM/DL Hematocrit 38.2 % Mean Corpuscular Volume 89.1 FL Mean Corpuscular Hemoglobin 28.8 PG Mean Corpuscular Hemoglobin 32.3 % Concent Red Cell Distribution Width 16.3 % Platelet Count 170 TH/MM3 Mean Platelet Volume 7.4 FL Neutrophils (%) (Auto) 77.9 % Lymphocytes (%) (Auto) 11.1 % Monocytes (%) (Auto) 9.1 % Eosinophils (%) (Auto) 1.0 % Basophils (%) (Auto) 0.9 % Neutrophils # (Auto) 6.1 TH/MM3 Lymphocytes # (Auto) 0.9 TH/MM3 Monocytes # (Auto) 0.7 TH/MM3 Eosinophils # (Auto) 0.1 TH/MM3 Basophils # (Auto) 0.1 TH/MM3 CBC Comment DIFF FINAL Differential Comment Sodium Level 142 MEQ/L Potassium Level 4.1 MEQ/L Chloride Level 108 MEQ/L Carbon Dioxide Level 24.1 MEQ/L Anion Gap 10 MEQ/L Blood Urea Nitrogen 20 MG/DL Creatinine 0.95 MG/DL Estimat Glomerular Filtration 56 ML/MIN Rate Random Glucose 86 MG/DL Calcium Level 9.2 MG/DL Total Bilirubin 0.8 MG/DL Aspartate Amino Transf 27 U/L (AST/SGOT) Alanine Aminotransferase 19 U/L (ALT/SGPT) Alkaline Phosphatase 59 U/L Total Protein 6.3 GM/DL Albumin 3.3 GM/DL Urine Color LIGHT-YELLOW Urine Turbidity CLEAR Urine pH 5.0 Urine Specific [place] 1.005 Urine Protein NEG mg/dL Urine Glucose (UA) NEG mg/dL Urine Ketones NEG mg/dL Urine Occult Blood NEG Urine Nitrite NEG Urine Bilirubin NEG Urine Urobilinogen LESS THAN 2.0 MG/DL Urine Leukocyte Esterase SMALL Urine RBC LESS THAN 1 /hpf Urine WBC 3 /hpf Urine Squamous Epithelial <1 /hpf Cells Urine Transitional Epithelial <1 /hpf Cells Urine Bacteria RARE /hpf Urine Mucus FEW /lpf Microscopic Urinalysis Comment CULT NOT INDICATED MDM Medical Decision Making Medical Screen Exam Complete: Yes Emergency Medical Condition: Yes Differential Diagnosis Differential diagnosis of diarrhea includes but is not limited to early enteritis, bacterial enteritis, antibiotic induced diarrhea, irritable bowel syndrome Narrative Course Patient presents for the evaluation of nausea and diarrhea. She had her are both sick with the same thing. I will fluid resuscitate her. Zofran for nausea. Routine labs. Stool for culture of enteric pathogens and C. difficile. The patient has had no diarrhea since she has been here. She is making urine. She is stable for discharge to home. She now asked if I can check an INR for her. I have added that but will not necessarily wait for that before I discharge her. UA neg. The history, exam, diagnostic testing, and current condition do not suggest any significant pathology to warrant further testing, continued ED treatment, admission, or surgical evaluation at this point. The patient's condition is stable and appropriate for discharge. Diagnosis Primary Impression: Diarrhea Qualified Code: R19.7 - Diarrhea, unspecified type Patient Instructions: Acute Diarrhea (ED), General Instructions Disposition: 01 DISCHARGE HOME Condition: Stable Мария Vazquez MD Sep 08, 2016 10:09
[2016-09-08 10:30] LABS: AUTOMATED NEUTROPHIL # 6.1 TH/MM3 (1.8-7.7); BASOPHIL # 0.1 TH/MM3 (0-0.2); BASOPHIL % 0.9 % (0.0-2.0); EOSINOPHIL # 0.1 TH/MM3 (0-0.4); HEMATOCRIT 38.2 % (35.0-46.0); HEMO FLAGS DIFF FINAL; LYMPH % 11.1 % (9.0-44.0); LYMPHOCYTE # 0.9 TH/MM3 (1.0-4.8); MEAN CELL VOLUME 89.1 FL (80.0-100.0); MEAN CORPUSCULAR HEMOGLOBIN 28.8 PG (27.0-34.0); MEAN CORPUSCULAR HGB CONC 32.3 % (32.0-36.0); MONO % 9.1 % (0.0-8.0); NEUT % 77.9 % (16.0-70.0); PLATELET COUNT 170 TH/MM3 (150-450); RED BLOOD COUNT 4.29 MIL/MM3 (4.00-5.30); RED CELL DISTRIBUTION WIDTH 16.3 % (11.6-17.2); WHITE BLOOD COUNT 7.9 TH/MM3 (4.0-11.0)
[2016-09-08] MEDS ORDERED: HYDR10TA65 PO (10:33)
[2016-09-08] MEDS ORDERED: HYDR5TAB64 PO (10:33)
[2016-09-08] MEDS ORDERED: COUM3TAB PO (10:33)
[2016-09-08] MEDS ORDERED: COUM5TAB PO (10:33)
[2016-09-08 10:52] LABS: ANION GAP 10 MEQ/L (5-15); AST (GOT) 27 U/L (15-37); BICARBONATE 24.1 MEQ/L (21.0-32.0); BLOOD UREA NITROGEN 20 MG/DL (7-18); CHLORIDE 108 MEQ/L (98-107); GLOMERULAR FILTRATION RATE 56 ML/MIN (>89); POTASSIUM 4.1 MEQ/L (3.5-5.1); SODIUM (NA) 142 MEQ/L (136-145)
[2016-09-08 10:55] LABS: ALKALINE PHOSPHATASE 59 U/L (45-117); ALT (GPT) 19 U/L (10-53); TOTAL BILIRUBIN ADULT 0.8 MG/DL (0.2-1.0)
[2016-09-08 11:51] LABS: BACTERIA, URINE RARE /hpf; BLOOD, URINE NEG (NEG); GLUCOSE,URINE NEG (NEG); KETONE, URINE NEG (NEG); MUCUS URINE FEW /lpf (OCC); NITRITE,URINE NEG (NEG); SQUAMOUS EPITHELIAL CELL URINE <1 /hpf (0-5); TRANSITIONAL EPI CELLS, URINE <1 /hpf; URINE COLOR LIGHT-YELLOW (YELLW/STRAW)
[2016-09-08 11:53] LABS: COMMENT (UR) CULT NOT INDICATED; CULTURE IF INDICATED CULT NOT INDICATED
== END 2016-09-08 16:39 | disposition home or self-care (01) ==
LOC: NEPD 09:29
DX: R19.7 Diarrhea, unspecified (principal); I12.9 Hypertensive chronic kidney disease with stage 1 through stage 4 chronic kidney disease, or unspecified chronic kidney disease; N18.9 Chronic kidney disease, unspecified; G47.30 Sleep apnea, unspecified; I50.9 Heart failure, unspecified; J44.9 Chronic obstructive pulmonary disease, unspecified; Z95.2 Presence of prosthetic heart valve; Z86.73 Personal history of transient ischemic attack (TIA), and cerebral infarction without residual deficits; Z96.641 Presence of right artificial hip joint; Z95.0 Presence of cardiac pacemaker; Z79.01 Long term (current) use of anticoagulants; I48.91 Unspecified atrial fibrillation; F41.8 Other specified anxiety disorders; I71.4 Abdominal aortic aneurysm, without rupture
CPT/HCPCS: 80053; 81001; 85025; 87040; 96361; 96374; 99284; J2405; J7030

== ENCOUNTER → 2016-09-14 | Outpatient (CLI) | payer MEDICARE ==
[~2016-09-14] MED LIST changes: -CEPH-460 PO; +COUM3TAB PO; +COUM5TAB PO; +HYDR5TAB64 PO
[2016-09-14 11:39] LABS: INTERNATIONAL NORMALIZED RATIO 2.8 RATIO
== END ==
LOC: CLAB 10:58
PROVIDERS: ATTEND Internal Medicine Interventional Cardiology
DX: G45.9 Transient cerebral ischemic attack, unspecified (principal); Z79.01 Long term (current) use of anticoagulants
CPT/HCPCS: 36415; 85610

== ENCOUNTER → 2016-09-29 | Outpatient (CLI) | payer MEDICARE ==
[2016-09-29 09:45] LABS: HEMATOCRIT 37.3 % (35.0-46.0); MEAN CELL VOLUME 89.4 FL (80.0-100.0); MEAN CORPUSCULAR HEMOGLOBIN 29.7 PG (27.0-34.0); MEAN CORPUSCULAR HGB CONC 33.2 % (32.0-36.0); PLATELET COUNT 164 TH/MM3 (150-450); RED BLOOD COUNT 4.18 MIL/MM3 (4.00-5.30); RED CELL DISTRIBUTION WIDTH 17.1 % (11.6-17.2); REVIEW FLAG FINAL; WHITE BLOOD COUNT 7.4 TH/MM3 (4.0-11.0)
[2016-09-29 10:13] LABS: ANION GAP 7 MEQ/L (5-15); AST (GOT) 22 U/L (15-37); BICARBONATE 27.7 MEQ/L (21.0-32.0); BLOOD UREA NITROGEN 20 MG/DL (7-18); CHLORIDE 107 MEQ/L (98-107); GLOMERULAR FILTRATION RATE 48 ML/MIN (>89); GLUCOSE,FASTING 75 MG/DL (74-99); MAGNESIUM 2.2 MG/DL (1.5-2.5); POTASSIUM 3.9 MEQ/L (3.5-5.1); SODIUM (NA) 142 MEQ/L (136-145)
[2016-09-29 10:14] LABS: ALT (GPT) 21 U/L (10-53)
[2016-09-29 10:23] LABS: ALKALINE PHOSPHATASE 62 U/L (45-117); HDL CHOLESTEROL 79.7 MG/DL (40.0-60.0); LDL CHOLESTEROL 31 MG/DL (0-99); TOTAL BILIRUBIN ADULT 0.8 MG/DL (0.2-1.0)
== END ==
LOC: CLAB 09:20
PROVIDERS: ATTEND Family Medicine
DX: G45.9 Transient cerebral ischemic attack, unspecified (principal); H34.00 Transient retinal artery occlusion, unspecified eye; M79.2 Neuralgia and neuritis, unspecified; I42.8 Other cardiomyopathies; I10 Essential (primary) hypertension; E27.1 Primary adrenocortical insufficiency; Z95.2 Presence of prosthetic heart valve
CPT/HCPCS: 36415; 80053; 80061; 83735; 84443; 85027

== ENCOUNTER → 2016-10-04 | Outpatient (CLI) | payer MEDICARE | LOC: CLAB 10:00 | PROVIDERS: ATTEND Internal Medicine Interventional Cardiology | DX: I35.1 Nonrheumatic aortic (valve) insufficiency (principal); I50.32 Chronic diastolic (congestive) heart failure; R06.02 Shortness of breath; I27.2 Other secondary pulmonary hypertension | CPT/HCPCS: 36415 ==

== ENCOUNTER → 2016-10-05 | Outpatient (CLI) | payer MEDICARE ==
[2016-10-05 09:37] LABS: INTERNATIONAL NORMALIZED RATIO 2.7 RATIO; PROTHROMBIN TIME - PATIENT 31.3 SEC (9.8-11.6)
== END ==
LOC: CLAB 08:36
PROVIDERS: ATTEND Internal Medicine Interventional Cardiology
DX: G45.9 Transient cerebral ischemic attack, unspecified (principal); H53.8 Other visual disturbances; M25.50 Pain in unspecified joint; Z79.01 Long term (current) use of anticoagulants
CPT/HCPCS: 36415; 85610; 85652

== ENCOUNTER → 2016-11-01 | Outpatient (CLI) | payer MEDICARE ==
[~2016-11-01] MED LIST changes: +ALTA10CA10 PO; +COUM4TAB PO; +HYDR-3533 PO; +ZOFR4TAB3 SL
[2016-11-01 08:32] LABS: HEMATOCRIT 40.5 % (35.0-46.0); MEAN CELL VOLUME 88.4 FL (80.0-100.0); MEAN CORPUSCULAR HEMOGLOBIN 29.5 PG (27.0-34.0); MEAN CORPUSCULAR HGB CONC 33.3 % (32.0-36.0); PLATELET COUNT 159 TH/MM3 (150-450); RED BLOOD COUNT 4.59 MIL/MM3 (4.00-5.30); RED CELL DISTRIBUTION WIDTH 16.8 % (11.6-17.2); REVIEW FLAG FINAL; WHITE BLOOD COUNT 6.9 TH/MM3 (4.0-11.0)
[2016-11-01 08:53] LABS: ANION GAP 7 MEQ/L (5-15); AST (GOT) 18 U/L (15-37); BICARBONATE 27.5 MEQ/L (21.0-32.0); BLOOD UREA NITROGEN 31 MG/DL (7-18); CHLORIDE 103 MEQ/L (98-107); GLOMERULAR FILTRATION RATE 36 ML/MIN (>89); GLUCOSE,FASTING 78 MG/DL (74-99); MAGNESIUM 2.3 MG/DL (1.5-2.5); POTASSIUM 4.4 MEQ/L (3.5-5.1); SODIUM (NA) 137 MEQ/L (136-145)
[2016-11-01 09:02] LABS: ALKALINE PHOSPHATASE 69 U/L (45-117); ALT (GPT) 18 U/L (10-53); HDL CHOLESTEROL 76.8 MG/DL (40.0-60.0); LDL CHOLESTEROL 36 MG/DL (0-99); TOTAL BILIRUBIN ADULT 0.7 MG/DL (0.2-1.0)
== END ==
LOC: CLAB 08:07
PROVIDERS: ATTEND Family Medicine
DX: G45.9 Transient cerebral ischemic attack, unspecified (principal); H34.00 Transient retinal artery occlusion, unspecified eye; M79.2 Neuralgia and neuritis, unspecified; I42.8 Other cardiomyopathies; I10 Essential (primary) hypertension; E27.1 Primary adrenocortical insufficiency; Z95.2 Presence of prosthetic heart valve
CPT/HCPCS: 36415; 80053; 80061; 83735; 84443; 85027

== ENCOUNTER → 2016-11-09 | Outpatient (CLI) | payer MEDICARE ==
[2016-11-09 09:32] LABS: INTERNATIONAL NORMALIZED RATIO 2.9 RATIO; PROTHROMBIN TIME - PATIENT 33.4 SEC (9.8-11.6)
[2016-11-09 09:55] LABS: BICARBONATE 29.1 MEQ/L (21.0-32.0); POTASSIUM 4.7 MEQ/L (3.5-5.1)
== END ==
LOC: CLAB 08:55
PROVIDERS: ATTEND Internal Medicine Interventional Cardiology
DX: I35.1 Nonrheumatic aortic (valve) insufficiency (principal); I50.32 Chronic diastolic (congestive) heart failure; R06.02 Shortness of breath; I27.2 Other secondary pulmonary hypertension; G45.9 Transient cerebral ischemic attack, unspecified; Z79.01 Long term (current) use of anticoagulants
CPT/HCPCS: 36415; 80048; 85610

== ENCOUNTER 2016-11-12 19:42 | Observation (INO) | payer MEDICARE ==
[2016-11-12] MEDS: HYDROCORTISONE 10 MG TAB PO SCH (00:22)
[~2016-11-12 19:42] MED LIST changes: -ALTA10CA10 PO; -COUM4TAB PO; -HYDR-3533 PO; -ZOFR4TAB3 SL
[2016-11-12 19:45] VITALS: BP 97/52; PULSE 67; RESP 15; TEMP 98.9; O2SAT 94
[2016-11-12 19:51] VITALS: BP 107/58; PULSE 60; RESP 18; O2SAT 93
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
[2016-11-12 20:29] VITALS: PULSE 59; RESP 18; O2SAT 93
[2016-11-12] MEDS ORDERED: SODIUM CHLORIDE 0.9% FLUSH 10 ML FLUSH IVF PRN (20:30)
[2016-11-12 20:38] LABS: AUTOMATED NEUTROPHIL # 5.5 TH/MM3 (1.8-7.7); BASOPHIL % 0.4 % (0.0-2.0); EOSINOPHIL % 0.6 % (0.0-4.0); HEMATOCRIT 37.8 % (35.0-46.0); HEMO FLAGS DIFF FINAL; LYMPH % 10.9 % (9.0-44.0); LYMPHOCYTE # 0.8 TH/MM3 (1.0-4.8); MEAN CELL VOLUME 88.7 FL (80.0-100.0); MEAN CORPUSCULAR HEMOGLOBIN 29.5 PG (27.0-34.0); MEAN CORPUSCULAR HGB CONC 33.2 % (32.0-36.0); MONO % 8.2 % (0.0-8.0); NEUT % 79.9 % (16.0-70.0); PLATELET COUNT 179 TH/MM3 (150-450); RED BLOOD COUNT 4.26 MIL/MM3 (4.00-5.30); RED CELL DISTRIBUTION WIDTH 17.4 % (11.6-17.2); WHITE BLOOD COUNT 6.9 TH/MM3 (4.0-11.0)
[2016-11-12] MEDS ORDERED: SODIUM CHLORID 0.9% 500 ML INJ 500 ML IV ONE (20:45)
[2016-11-12 20:47] LABS: APTT (PATIENT) 36.6 SEC (24.3-30.1); PROTHROMBIN TIME - PATIENT 34.9 SEC (9.8-11.6)
--- NOTE | 2016-11-12 20:59 | RADRPT ---
EXAM DATE/TIME: 11/12/2016 20:39 [facility] COMPARISON: No previous studies available for comparison. INDICATIONS : Altered mental status. RADIATION DOSE: 33.17 CTDIvol (mGy) MEDICAL HISTORY : Cholecystectomy SURGICAL HISTORY : Cholecystectomy. Appendectomy.CABG ENCOUNTER: Initial ACUITY: 1 day PAIN SCALE: 0/10 LOCATION: cranial TECHNIQUE: Multiple contiguous axial images were obtained of the head. Using automated exposure control and adj ustment of the mA and/or kV according to patient size, radiation dose was kept as low as reasonably a chievable to obtain optimal diagnostic quality images. DICOM format image data is available electro nically for review and comparison. FINDINGS: CEREBRUM: The ventricles are normal for age. No evidence of midline shift, mass lesion, hemorrhage or acute in farction. No extra-axial fluid collections are seen. POSTERIOR FOSSA: The cerebellum and brainstem are intact. The 4th ventricle is midline. The cerebellopontine angle i s unremarkable. EXTRACRANIAL: The visualized portion of the orbits is intact. Extensive sinus mucosal thickening. SKULL: The calvaria is intact. No evidence of skull fracture. CONCLUSION: 1. No acute findings. Chronic white matter ischemic changes similar to August 21. 2. Mucosal thickening and partial opacification of the paranasal sinuses. Justice Biswas MD on November 12, 2016 at 20:55 Board Certified Radiologist. This report was verified electronically.
--- NOTE | 2016-11-12 21:01 | RADRPT ---
EXAM DATE/TIME: 11/12/2016 20:56 [facility] COMPARISON: CHEST SINGLE AP, August 21, 2016, 16:35. INDICATIONS : Shortness of breath. MEDICAL HISTORY : Aneurysm, abdominal. Chronic obstructive pulmonary disease. SURGICAL HISTORY : Abdominal aortic aneurysm repair. Pacemaker.Brain tumor removal. ENCOUNTER: Initial ACUITY: 1 day PAIN SCORE: 0/10 LOCATION: Bilateral chest FINDINGS: Mild basilar atelectasis. Cardiomegaly. Pacer leads are in right atrium and right ventricle and coron lydia sinus. Previous median sternotomy. CONCLUSION: 1. Cardiomegaly. Mild basilar atelectasis. No significant effusion. Justice Biswas MD on November 12, 2016 at 20:58 Board Certified Radiologist. This report was verified electronically.
[2016-11-12 21:13] LABS: ALKALINE PHOSPHATASE 65 U/L (45-117); ALT (GPT) 20 U/L (10-53); ANION GAP 9 MEQ/L (5-15); AST (GOT) 26 U/L (15-37); BICARBONATE 24.4 MEQ/L (21.0-32.0); BLOOD UREA NITROGEN 36 MG/DL (7-18); CHLORIDE 103 MEQ/L (98-107); CREATINE KINASE 120 U/L (26-192); GLOMERULAR FILTRATION RATE 25 ML/MIN (>89); SODIUM (NA) 136 MEQ/L (136-145); TOTAL BILIRUBIN ADULT 0.9 MG/DL (0.2-1.0)
[2016-11-12 21:22] LABS: BLOOD, URINE NEG (NEG); COMMENT (UR) CATH-CULT NOT IND; CULTURE IF INDICATED CATH CULTURE NOT IND; GLUCOSE,URINE NEG (NEG); HYALINE CAST, URINE 7 /lpf (RARE); KETONE, URINE NEG (NEG); NITRITE,URINE NEG (NEG); PH, URINE 5.5 (5.0-8.5); URINE COLOR YELLOW (YELLW/STRAW)
[2016-11-12 21:36] LABS: POTASSIUM 5.2 MEQ/L (3.5-5.1)
[2016-11-12 21:51] VITALS: BP 109/56; PULSE 66; RESP 18; O2SAT 96
[2016-11-12] MEDS ORDERED: SODIUM CHLORIDE 0.9% FLUSH 10 ML FLUSH IV FLUSH PRN (22:15)
[2016-11-12] MEDS ORDERED: ARTIFICIAL TEARS OPTH SOLN 15 ML BTL EACH EYE SCH (22:15)
[2016-11-12] MEDS ORDERED: MORPHINE SULFATE 4 MG/ML INJ IV PRN (22:15)
[2016-11-12] MEDS ORDERED: BISACODYL 10 MG SUPP RECTAL PRN (22:15)
[2016-11-12] MEDS ORDERED: SENNOSIDES 8.6 MG TAB PO PRN (22:15)
[2016-11-12] MEDS ORDERED: MAGNESIUM HYDROXIDE SUSP 30 ML CUP PO PRN (22:15)
[2016-11-12] MEDS ORDERED: ACETAMINOPHEN/HYDROcodone 325 MG/5 MG TAB PO PRN (22:15)
[2016-11-12] MEDS ORDERED: LACTULOSE SYRUP 20 GM/30 ML CUP PO PRN (22:15)
[2016-11-12] MEDS ORDERED: ACETAMINOPHEN 325 MG TAB PO PRN (22:15)
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
--- NOTE | 2016-11-12 23:32 | RADRPT ---
EXAM DATE/TIME: 11/12/2016 22:39 [place] COMPARISON: US CAROTID ARTERIES, November 13, 2015, 16:28. INDICATIONS : Transient ischemic attack. MEDICAL HISTORY : Congestive heart failure. Chronic obstructive pulmonary disease. Hypertension. Hearing loss. Migraine s. Ascending aortic aneurysm. Coronary artery disease. Anticoagulant therapy. Afib. Sleep apnea. Ovar giovanny cysts. GERD. . Renal failure. Renal calculi. Depression. Anxiety. Measles. Arthritis. An emia. Blood transfusion. SURGICAL HISTORY : Pacemaker. Hysterectomy. Internal defibrillator. Laminectomy. Right hip replacement. Bilateral adre nal gland removal. Renal stent. Right ankle surgery. Bilateral cataract removal. Brain tumor removal. Aortic valve replacement. Ascending aortic aneurysm repair. ENCOUNTER: Subsequent ACUITY: 1 day PAIN SCORE: 0/10 LOCATION: Bilateral neck PEAK SYSTOLIC VELOCITIES (cm/sec): ICA/CCA RATIO: Right: 1.7 Left: 1.1 ICA: Right: 94 Left: 75 CCA: Right: 55 Left: 67 ECA: Right: 55 Left: 53 VERTEBRAL: Right: 51 antegrade Left: 59 antegrade Elevated flow velocities and ICA/CCA ratios have been found to correlate with increased degrees of vessel stenosis, calculated as percentage of diameter relative to a normal segment of distal ICA/CCA FINDINGS: RIGHT CAROTID: Trace plaque seen of the bulb LEFT CAROTID: Trace plaque seen at the level of the bulb. VERTEBRAL ARTERIES: Antegrade flow is seen in both vertebral arteries. MISCELLANEOUS: None. CONCLUSION: Minimal atherosclerotic plaque of both carotid bifurcations. No hemodynamically significant narrowing . Tru Cosby MD on November 12, 2016 at 23:28 Board Certified Radiologist. This report was verified electronically.
[2016-11-13 00:44] VITALS: BP 132/66; PULSE 60; RESP 18; TEMP 97.4; O2SAT 95
[2016-11-13 03:12] VITALS: PULSE 64
[2016-11-13 03:30] VITALS: BP 137/68; PULSE 58; RESP 17; TEMP 97.8; O2SAT 95
[2016-11-13] MEDS ORDERED: PANTOPRAZOLE SOD 20 MG DELAYED RELEASE TAB PO SCH (07:00)
[2016-11-13 07:29] VITALS: PULSE 60
[2016-11-13 08:22] VITALS: BP 147/70; PULSE 66; RESP 18; TEMP 96.8; O2SAT 96
[2016-11-13] MEDS ORDERED: CITALOPRAM HYDROBROMIDE 20 MG TAB PO SCH (09:00)
[2016-11-13] MEDS ORDERED: METHYLPHENIDATE HCL 10 MG TAB PO SCH (09:00)
[2016-11-13] MEDS ORDERED: SODIUM CHLORIDE 0.9% FLUSH 10 ML FLUSH IV FLUSH SCH (09:00)
[2016-11-13] MEDS ORDERED: DOCUSATE SODIUM 50 MG/SENNA 8.6 MG TAB PO SCH (09:00)
[2016-11-13] MEDS: HYDROCORTISONE 10 MG TAB PO SCH (09:53)
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
[2016-11-13] MEDS ORDERED: CARVEDILOL 12.5 MG TAB PO SCH (10:30)
[2016-11-13] MEDS ORDERED: MAGNESIUM OXIDE 400 MG TAB PO SCH (11:00)
--- NOTE | 2016-11-13 11:48 | PD.CONS ---
History of Present Illness Service Neurology Consult Requested By medical Reason for Consult tia Primary Care Physician Flaquita Arrieta MD History of Present Illness 81-year-old female who was brought to the ER secondary to episode of AMS. she had woken up out of a nap. was confused, able to speak and understand but memory deficits. lasted for about 15 mins. no focal weakness. Symptoms completely resolved by the time of arrival to ER. BP 107/58, Creatinine 1.94, previously 1.06 on 11/09/16. INR 3.0. UA negative. CT Head with no acute findings, chronic white matter ischemic changes similar to August 21. no previous occurrence. no hx of sz. at baseline per spouse. no carty, no cp, no dyspnea. wants to go home. admits to moderate stress, lack of hydration. hx of chronic diplopia, pit tumor followed by optho locally and at [facility]. Review of Systems Except as stated in HPI: all other systems reviewed are Neg and as per admit hp Past Family Social History Past Medical History HTN, A. fib, AAA, Anxiety, Depression, AVR s/p Bovine Valve, Aortic root Aneurysm Repair, h/o TIA, CHF, COPD and Sleep Apnea Past Surgical History Aortic Valve Replacement, AICD, AAA Repair, Appendectomy, Bilateral Adrenalectomy, Cataract Surgery, Hysterectomy, Right Hip Replacement, Brain Tumor, Right Ankle Surgery Allergies: Coded Allergies: Horse/Equine Containing Products (Verified Allergy, Severe, PATIENT NOT SURE, 10/26/16) azithromycin (Verified Allergy, Severe, 10/26/16) ON DIGOXIN ciprofloxacin (Verified Allergy, Severe, 10/26/16) due to taking coumadin and digoxin clarithromycin (Verified Allergy, Severe, 10/26/16) ON DIGOXIN doxycycline (Verified Allergy, Severe, 10/26/16) due to being on coumadin and digoxin metronidazole (Verified Allergy, Severe, 10/26/16) because of being on coumadin and digoxin minocycline (Verified Allergy, Severe, 10/26/16) due to being on coumadin and digoxin sulfamethoxazole (Verified Allergy, Severe, 10/26/16) due to coumadin intake and digoxin tigecycline (Verified Allergy, Severe, 10/26/16) due to being on coumadin and digoxin trimethoprim (Verified Allergy, Severe, 10/26/16) due to coumadin intake and digoxin ampicillin (Verified Allergy, Unknown, 10/26/16) CAN NOT TAKE D/T COUMADIN fluconazole (Verified Allergy, Unknown, 10/26/16) CAN NOT TAKE D/T COUMADIN MRI PRECAUTION (Verified Adverse Reaction, Severe, NON COMPATIBLE PACEMAKER 11/13/15 LRS, 10/26/16) Uncoded Allergies: no mri (Adverse Reaction, Severe, pacemaker, 11/13/15) pacemaker in place Family History n/c Social History Negative for alcohol, tobacco or drugs. Review of Systems All other ROS: ROS reviewed as documented in chart Past Family Social History Allergies: Coded Allergies: Horse/Equine Containing Products (Verified Allergy, Severe, PATIENT NOT SURE, 10/26/16) azithromycin (Verified Allergy, Severe, 10/26/16) ON DIGOXIN ciprofloxacin (Verified Allergy, Severe, 10/26/16) due to taking coumadin and digoxin clarithromycin (Verified Allergy, Severe, 10/26/16) ON DIGOXIN doxycycline (Verified Allergy, Severe, 10/26/16) due to being on coumadin and digoxin metronidazole (Verified Allergy, Severe, 10/26/16) because of being on coumadin and digoxin minocycline (Verified Allergy, Severe, 10/26/16) due to being on coumadin and digoxin sulfamethoxazole (Verified Allergy, Severe, 10/26/16) due to coumadin intake and digoxin tigecycline (Verified Allergy, Severe, 10/26/16) due to being on coumadin and digoxin trimethoprim (Verified Allergy, Severe, 10/26/16) due to coumadin intake and digoxin ampicillin (Verified Allergy, Unknown, 10/26/16) CAN NOT TAKE D/T COUMADIN fluconazole (Verified Allergy, Unknown, 10/26/16) CAN NOT TAKE D/T COUMADIN MRI PRECAUTION (Verified Adverse Reaction, Severe, NON COMPATIBLE PACEMAKER 11/13/15 LRS, 10/26/16) Uncoded Allergies: no mri (Adverse Reaction, Severe, pacemaker, 11/13/15) pacemaker in place Active Ordered Medications Current Medications Medications (Trade) Dose Ordered Sig/Richard Route Start Time Stop Time Status Last Admin (Lipitor) 20 mg HS PO 11/13/16 21:00 (Tears Naturale Opth Soln) 1 drop HS EACH EYE 11/12/16 22:15 (CeleXA) 20 mg DAILY PO 11/13/16 09:00 11/13/16 09:53 (Cortef) 5 mg AC DINNER PO 11/13/16 16:00 (Cortef) 10 mg BID PO 11/12/16 22:15 11/13/16 09:53 (Ritalin Ir) 10 mg DAILY PO 11/13/16 09:00 11/13/16 09:56 (Mag-Ox) 400 mg DAILY@1100 PO 11/13/16 11:00 11/13/16 10:29 (Protonix) 20 mg BIDAC PO 11/13/16 07:00 11/13/16 06:29 (Florinef) 0.05 mg MoWeFr PO 11/15/16 09:00 (NS Flush) 2 ml UNSCH PRN IV FLUSH 11/12/16 22:15 (NS Flush) 2 ml BID IV FLUSH 11/13/16 09:00 11/13/16 09:53 (Tylenol) 650 mg Q6H PRN PO 11/12/16 22:15 ([place] 5-325 Mg) 1 tab Q4H PRN PO 11/12/16 22:15 (Morphine Inj) 1 mg Q3H PRN IV 11/12/16 22:15 (Daniela-Colace) 1 tab BID PO 11/13/16 09:00 11/13/16 09:54 (Milk Of Magnesia Liq) 30 ml Q12H PRN PO 11/12/16 22:15 (Senokot) 17.2 mg Q12H PRN PO 11/12/16 22:15 (Dulcolax Supp) 10 mg DAILY PRN RECTAL 11/12/16 22:15 (Lactulose Liq) 30 ml DAILY PRN PO 11/12/16 22:15 (Coumadin) 5 mg MoWeFr@16 PO 11/15/16 16:00 (Coumadin) 3 mg TuThSa@1600 PO 11/13/16 16:00 (Coumadin Booklet) 1 ONCE ONCE .XX 11/13/16 16:00 11/13/16 16:01 (Coreg) 25 mg BID PO 11/13/16 10:30 11/13/16 10:29 Exam I&O / VS Vital Signs Date Time Temp Pulse Resp B/P (MAP) Pulse Ox O2 Delivery O2 Flow Rate FiO2 11/13/16 08:22 96.8 66 18 147/70 (95) 96 11/13/16 07:29 60 11/13/16 03:30 97.8 58 17 137/68 (91) 95 11/13/16 03:12 64 11/13/16 00:44 97.4 60 18 132/66 (88) 95 11/12/16 23:46 11/12/16 21:51 66 18 109/56 (73) 96 Room Air 11/12/16 20:29 59 18 93 11/12/16 19:55 60 18 93 11/12/16 19:51 60 18 107/58 (74) 93 11/12/16 19:45 98.9 67 15 97/52 (67) 94 Room Air General: Alert and Oriented, No acute distress Respiratory: Non-labored respirations Neurologic: Alert, Oriented Psychiatric: Cooperative, Appropriate mood & affect Exam Comments ox 3, sitting up, looks well, no aphasia, mild left ptosis(chronic per pt), mild left medial rectus weakness, face sym, no temp tenderness, no clonus, planter flexor, no drift Review/Management Diagnosis/Plan: (1) Spell of altered cognition ICD Codes: R41.89 - Other symptoms and signs involving cognitive functions and awareness Status: Acute Plan: likely 2/2 pre-renal azotemia/uremia/stressors less likely tia. 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
[2016-11-13 11:53] LABS: ALKALINE PHOSPHATASE 62 U/L (45-117); ALT (GPT) 20 U/L (10-53); ANION GAP 7 MEQ/L (5-15); AST (GOT) 18 U/L (15-37); BLOOD UREA NITROGEN 26 MG/DL (7-18); CHLORIDE 108 MEQ/L (98-107); GLOMERULAR FILTRATION RATE 37 ML/MIN (>89); POTASSIUM 4.1 MEQ/L (3.5-5.1); SODIUM (NA) 142 MEQ/L (136-145)
[2016-11-13 12:03] VITALS: BP 130/60; PULSE 60; RESP 18; TEMP 97.8; O2SAT 96
--- NOTE | 2016-11-13 12:12 | HHI.DCPOC ---
Discharge Care Plan Diagnosis: (1) TIA (transient ischemic attack) (2) Dehydration (3) Hypotension Goals to Promote Your Health * To prevent worsening of your condition and complications * To maintain your health at the optimal level Directions to Meet Your Goals Take your medications as prescribed Follow your dietary instruction Follow activity as directed Keep your appointments as scheduled Take your immunizations and boosters as scheduled If your symptoms worsen call your PCP, if no PCP go to Urgent Care Center or Emergency Room Smoking is Dangerous to Your Health. Avoid second hand smoke Call the 24-hour hour crisis hotline for domestic abuse at Stephy Bray PA-C Nov 13, 2016 12:12
[2016-11-13] MEDS ORDERED: RAMI10CA PO (12:13)
--- NOTE | 2016-11-13 13:38 | EKG ---
Date Performed: 11/12/2016 Time Performed: 20:33:35 PTAGE: 81 years EKG: ELECTRONIC ATRIAL PACEMAKER ELECTRONIC VENTRICULAR PACEMAKER Compared to prior tracing no s ignificant change ABNORMAL RHYTHM ECG PREVIOUS TRACING : 08/21/2016 16.08 DOCTOR: Alex Briones Interpretating Date/Time 11/13/2016 13:36:58
[2016-11-13] MEDS ORDERED: HYDROCORTISONE 10 MG TAB PO SCH (16:00)
[2016-11-13] MEDS ORDERED: WARFARIN SOD 3 MG TAB PO SCH (16:00)
[2016-11-13] MEDS ORDERED: ATORVASTATIN 20 MG TAB PO SCH (21:00)
[2016-11-15] MEDS ORDERED: FLUDROCORTISONE ACETATE 0.1 MG TAB PO SCH (09:00)
[2016-11-15] MEDS ORDERED: WARFARIN SOD 5 MG TAB PO SCH (16:00)
== END 2016-11-13 14:54 | disposition home or self-care (01) ==
LOC: NEPE 19:42 → NEDA 22:05 → NEPGCP 23:48
PROVIDERS: ADMIT Hospitalist; ATTEND Hospitalist
DX: G45.9 Transient cerebral ischemic attack, unspecified (principal); I95.9 Hypotension, unspecified; E86.0 Dehydration; E87.5 Hyperkalemia; I13.0 Hypertensive heart and chronic kidney disease with heart failure and stage 1 through stage 4 chronic kidney disease, or unspecified chronic kidney disease; I50.9 Heart failure, unspecified; N18.9 Chronic kidney disease, unspecified; I25.10 Atherosclerotic heart disease of native coronary artery without angina pectoris; J44.9 Chronic obstructive pulmonary disease, unspecified; J98.11 Atelectasis; I48.91 Unspecified atrial fibrillation; E24.0 Pituitary-dependent Cushing's disease; D35.2 Benign neoplasm of pituitary gland; K21.9 Gastro-esophageal reflux disease without esophagitis; G47.30 Sleep apnea, unspecified; Z95.2 Presence of prosthetic heart valve; Z95.1 Presence of aortocoronary bypass graft; Z79.01 Long term (current) use of anticoagulants; H91.90 Unspecified hearing loss, unspecified ear; Z87.442 Personal history of urinary calculi; Z96.641 Presence of right artificial hip joint
CPT/HCPCS: 70450; 71010; 80053; 81001; 82550; 84484; 85025; 85610; 85730; 93005; 93880; 99285; G0378; J7040; P9612

== ENCOUNTER → 2016-12-06 | Outpatient (CLI) | payer MEDICARE ==
[~2016-12-06] MED LIST changes: +ALTA10CA10 PO; +COUM4TAB PO; +HYDR-3533 PO; +ZOFR4TAB3 SL
[2016-12-06 08:24] LABS: INTERNATIONAL NORMALIZED RATIO 2.2 RATIO; PROTHROMBIN TIME - PATIENT 25.3 SEC (9.8-11.6)
[2016-12-06 08:40] LABS: BICARBONATE 29.3 MEQ/L (21.0-32.0); POTASSIUM 4.5 MEQ/L (3.5-5.1)
== END ==
LOC: CLAB 07:49
PROVIDERS: ATTEND Internal Medicine Interventional Cardiology
DX: G45.9 Transient cerebral ischemic attack, unspecified (principal); I11.9 Hypertensive heart disease without heart failure; I35.1 Nonrheumatic aortic (valve) insufficiency; R00.2 Palpitations; I44.1 Atrioventricular block, second degree; I42.0 Dilated cardiomyopathy; Z79.01 Long term (current) use of anticoagulants
CPT/HCPCS: 36415; 80048; 85610

== ENCOUNTER 2016-12-25 17:30 | Emergency (ER) | payer MEDICARE ==
[~2016-12-25] VITALS: Ht 160 cm; Wt 65.0 kg
[~2016-12-25 17:30] MED LIST changes: -ALTA10CA10 PO; -COUM4TAB PO; -CYAN1TAB24; +CYAN1TAB24 PO; -HYDR-3533 PO; -ZOFR4TAB3 SL
[2016-12-25 17:32] VITALS: BP 180/97; PULSE 73; RESP 16; TEMP 98.9; O2SAT 94
[2016-12-25] MEDS ORDERED: ALTA10CA10 PO (17:59)
[2016-12-25] MEDS ORDERED: COUM4TAB PO (17:59)
[2016-12-25] MEDS ORDERED: SODIUM CHLORIDE 0.9% FLUSH 10 ML FLUSH IVF PRN (18:00)
[2016-12-25] MEDS ORDERED: ONDANSETRON HCL 4 MG/2 ML VIAL IVP ONE (18:00)
[2016-12-25] MEDS ORDERED: HYDROmorphone HCL PF 1 MG/ML VIAL IVS ONE (18:00)
[2016-12-25 18:01] VITALS: RESP 18; O2SAT 95
--- NOTE | 2016-12-25 18:04 | PD ---
HPI Chief Complaint: Pain: Acute or Chronic Time Seen by Provider: 17:56 Travel History International Travel<30 days: No Contact w/Intl Traveler<30days: No Traveled to known affect area: No History of Present Illness HPI 81-year-old female patient with history of left frontal pituitary adenoma, surgically removed and radiated into past, Aysha syndrome, status post adrenal removal, multiple medical issues, here because of one day history of pains behind her left eye which she currently rates the 6 out of 10, nausea and vomiting, and left-sided neck discomfort. She states that she has had some intermittent symptoms are similar to this in the past although it has not occurred together in the past. She denies any blurry vision, states that she has some problems with double vision on a chronic basis since her brain surgery. She apparently has also had problems with chronic sinus infections for the past 3 years after getting her surgeries. She denies any recent fevers , abdominal pain, chest pains, or other symptoms. She reports no vision change. Modifying Factors: None Associated Signs & Symptoms: Left eye pain, nausea and vomiting, neck pain Risk Factors: History of brain tumor on the left side PFSH Past Medical History Hx Anticoagulant Therapy: Yes (COUMADIN) AAA: Yes (ASCENDING AORTIC ANEURSYM) Anemia: Yes Arthritis: Yes Asthma: No Atrial Fibrillation: Yes Autoimmune Disease: No Blood Disorders: No Anxiety: Yes Depression: Yes Heart Rhythm Problems: Yes (AFIB/VFIB) Cancer: No Cardiac Catheterization: Yes (AVR; AORTIC ROOT ANEURYSM REPAIR) Cardiovascular Problems: Yes (AORTIC ANEURYSM, PACE MAKER) High Cholesterol: No Chemotherapy: No Chest Pain: Yes Congestive Heart Failure: Yes COPD: Yes Cerebrovascular Accident: Yes (POSSIBLE PER ) Coronary Artery Disease: Yes Diabetes: No Diminished Hearing: Yes Endocrine: Yes (CUSHINGS) Gastrointestinal Disorders: Yes (HEMHORROIDS) GERD: Yes Glaucoma: No Genitourinary: Yes (UTI, R KIDNEY STENT) Headaches: Yes Hepatitis: No Hiatal Hernia: No Hypertension: Yes Immune Disorder: No Implanted Vascular Access Dvce: Yes Kidney Stones: Yes Musculoskeletal: Yes (CERVICAL LAMINECTOMY, SPINAL STENOSIS, R HIP REPLACED) Neurologic: Yes Psychiatric: No Reproductive: No (HYSTERECTOMY) Respiratory: Yes Immunizations Current: Yes Migraines: Yes Myocardial Infarction: No Radiation Therapy: No Renal Failure: Yes (ARF, STENT) Seizures: No Sleep Apnea: Yes (CPAP HS) Thyroid Disease: No PNEUMOCCOCAL Vaccine (Year): 2010 Menopausal: Yes : 2 Para: 2 Ovarian Cysts: Yes Past Surgical History Abdominal Aneurysm Repair: Yes (ASCENDING AORTA REPAIR 2005) Abdominal Surgery: Yes AICD: Yes Appendectomy: Yes Arteriovenous Shunt: No Body Medical Devices: AORTIC VALVE REPLACEMENT, PACEMAKER Cardiac Surgery: Yes (aortic valve, pacemaker placement) Cholecystectomy: Yes Coronary Artery Bypass Graft: Yes Ear Surgery: No Endocrine Surgery: Yes (SHASHI ADRENALS REMOVED-OCTOBER 01, 2013) Eye Surgery: Yes (CATARACT SX BILATERAL) Genitourinary Surgery: No Gynecologic Surgery: Yes Hysterectomy: Yes Insulin Pump: No Joint Replacement: Yes (R HIP) Neurologic Surgery: Yes (brain for tumor) Oral Surgery: No Pacemaker: Yes Thoracic Surgery: Yes (2005) Valve Replacement: Yes (AORTIC VALVE REPLACEMENT ) Other Surgery: Yes (SURGICAL REPAIR HEMATOMA, R ANKLE) Social History Alcohol Use: No Tobacco Use: No Substance Use: No Allergies-Medications (Allergen,Severity, Reaction): Coded Allergies: Horse/Equine Containing Products (Verified Allergy, Severe, PATIENT NOT SURE, 12/25/16) azithromycin (Verified Allergy, Severe, 12/25/16) ON DIGOXIN ciprofloxacin (Verified Allergy, Severe, 12/25/16) due to taking coumadin and digoxin clarithromycin (Verified Allergy, Severe, 12/25/16) ON DIGOXIN doxycycline (Verified Allergy, Severe, 12/25/16) due to being on coumadin and digoxin metronidazole (Verified Allergy, Severe, 12/25/16) because of being on coumadin and digoxin minocycline (Verified Allergy, Severe, 12/25/16) due to being on coumadin and digoxin sulfamethoxazole (Verified Allergy, Severe, 12/25/16) due to coumadin intake and digoxin tigecycline (Verified Allergy, Severe, 12/25/16) due to being on coumadin and digoxin trimethoprim (Verified Allergy, Severe, 12/25/16) due to coumadin intake and digoxin ampicillin (Verified Allergy, Unknown, 12/25/16) CAN NOT TAKE D/T COUMADIN fluconazole (Verified Allergy, Unknown, 12/25/16) CAN NOT TAKE D/T COUMADIN MRI PRECAUTION (Verified Adverse Reaction, Severe, NON COMPATIBLE PACEMAKER 11/13/15 LRS, 12/25/16) Uncoded Allergies: no mri (Adverse Reaction, Severe, pacemaker, 11/13/15) pacemaker in place Reported Meds & Prescriptions Reported Meds & Active Scripts Active Ramipril 10 Mg Cap 10 Mg PO DAILY Please change your dosing from twice a day to only once a day. Your BP has been low. Reported Coumadin (Warfarin) 4 Mg Tab 4 Mg PO JOHNSON,M,W,F Altace (Ramipril) 10 Mg Cap 10 Mg PO DAILY Coumadin (Warfarin) 3 Mg Tab 3 Mg PO DAILY T,TH,S Hydrocortisone 5 Mg Tab 5 Mg PO AC DINNER Take with food to decrease GI upset Hydrocortisone 10 Mg Tab 10 Mg PO BID Take with food to decrease GI upset Genteal Gel Drops (Carboxymethylcell/Hypromellose) 25 Ml Drp.lq.gel 1 Drop EACH EYE HS Refresh Tears Opth Drops (Carboxymethylcellulose Sodium Opth Drops) 0.5% Drops 1 Drop EACH EYE PRN Citalopram (Citalopram Hydrobromide) 20 Mg Tab 20 Mg PO DAILY B12 (Cyanocobalamin) 1,000 Mcg Tab DAILY Potassium Chloride ER (Potassium Chloride) 10 Meq Cap 10 Meq PO DAILY Ritalin IR (Methylphenidate HCl) 10 Mg Tab 10 Mg PO DAILY Omeprazole 20 Mg Tab 20 Mg PO BID Magnesium Oxide 250 Mg Tab 250 Mg PO DAILY Probiotic (Lactobacillus Acidophilus) 1 Cap Cap 1 Cap PO DAILY Fludrocortisone (Fludrocortisone Acetate) 0.1 Mg Tab 0.05 Mg PO MWF Flaxseed Oil [place]-3 (Flaxseed (Linseed)) 1,000 Mg Cap 1 Cap PO DAILY Vitamin D3 (Cholecalciferol) 1,000 Unit/[place] 1,000 PO DAILY Carvedilol 25 Mg Tab 25 Mg PO BID Atorvastatin (Atorvastatin Calcium) 20 Mg Tab 20 Mg PO HS Co Q 10 (Coenzyme Q10 (Ubidecarenone)) 100 Mg Cap 1 Cap PO DAILY Review of Systems Except as stated in HPI: all other systems reviewed are Neg Physical Exam Narrative GENERAL: Well-developed elderly white female patient currently in moderate distress. Awake and oriented 3. SKIN: Focused skin assessment warm/dry. HEAD: Atraumatic. Normocephalic. EYES: Pupils are round, small, with slight difference in pupil size with the left one slightly larger than the right one, both poorly reactive to light. No scleral icterus. No injection or drainage. Extraocular movements appears to be intact. ENT: No nasal bleeding or discharge. Mucous membranes pink and moist. NECK: Trachea midline. No JVD. Supple. CARDIOVASCULAR: Regular rate and rhythm. No murmur appreciated. RESPIRATORY: No accessory muscle use. Clear to auscultation. Breath sounds equal bilaterally. GASTROINTESTINAL: Abdomen soft, non-tender, nondistended. Hepatic and splenic margins not palpable. MUSCULOSKELETAL: No obvious deformities. No clubbing. No cyanosis. No edema. NEUROLOGICAL: Awake and alert. No obvious cranial nerve deficits. Motor grossly within normal limits. Normal speech. PSYCHIATRIC: Appropriate mood and affect; insight and judgment normal. Data Data Last Documented VS Vital Signs Date Time Temp Pulse Resp B/P (MAP) Pulse Ox O2 Delivery O2 Flow Rate FiO2 12/25/16 18:01 18 95 Room Air 12/25/16 17:32 98.9 73 Orders Orders Complete Blood Count With Diff (12/25/16 17:56) Comprehensive Metabolic Panel (12/25/16 17:56) [place] Sedimentation Rate (12/25/16 17:56) C-Reactive Protein (Crp) (12/25/16 17:56) Prothrombin Time / Inr (Pt) (12/25/16 17:56) Act Partial Throm Time (Ptt) (12/25/16 17:56) Ct Brain W/O Iv Contrast(Rout) (12/25/16 17:56) Ecg Monitoring (12/25/16 17:56) Iv Access Insert/Monitor (12/25/16 17:56) Oximetry (12/25/16 17:56) Sodium Chloride 0.9% Flush (Ns Flush) (12/25/16 18:00) Ondansetron Inj (Zofran Inj) (12/25/16 18:00) Hydromorphone Pf Inj (Dilaudid Pf Inj) (12/25/16 18:00) Proparacaine 0.5% Opth Soln (Alcaine 0.5 (12/25/16 19:00) Ed Discharge Order (12/25/16 19:28) Labs Laboratory Tests Test 12/25/16 18:08 White Blood Count 5.9 TH/MM3 Red Blood Count 4.31 MIL/MM3 Hemoglobin 12.8 GM/DL Hematocrit 38.4 % Mean Corpuscular Volume 89.2 FL Mean Corpuscular Hemoglobin 29.8 PG Mean Corpuscular Hemoglobin Concent 33.4 % Red Cell Distribution Width 18.2 % Platelet Count 142 TH/MM3 Mean Platelet Volume 7.7 FL Neutrophils (%) (Auto) 78.9 % Lymphocytes (%) (Auto) 13.5 % Monocytes (%) (Auto) 6.3 % Eosinophils (%) (Auto) 0.6 % Basophils (%) (Auto) 0.7 % Neutrophils # (Auto) 4.7 TH/MM3 Lymphocytes # (Auto) 0.8 TH/MM3 Monocytes # (Auto) 0.4 TH/MM3 Eosinophils # (Auto) 0.0 TH/MM3 Basophils # (Auto) 0.0 TH/MM3 CBC Comment DIFF FINAL Differential Comment Erythrocyte Sedimentation Rate 15 mm/hr Prothrombin Time 24.4 SEC Prothromb Time International Ratio 2.1 RATIO Activated Partial Thromboplast Time 31.7 SEC Blood Urea Nitrogen 22 MG/DL Creatinine 1.20 MG/DL Random Glucose 112 MG/DL Total Protein 6.5 GM/DL Albumin 3.6 GM/DL Calcium Level 9.0 MG/DL Alkaline Phosphatase 63 U/L Aspartate Amino Transf (AST/SGOT) 21 U/L Alanine Aminotransferase (ALT/SGPT) 19 U/L Total Bilirubin 0.6 MG/DL Sodium Level 135 MEQ/L Potassium Level 4.3 MEQ/L Chloride Level 101 MEQ/L Carbon Dioxide Level 27.8 MEQ/L Anion Gap 6 MEQ/L Estimat Glomerular Filtration Rate 43 ML/MIN C-Reactive Protein LESS THAN 0.29 MG/DL MDM Medical Decision Making Medical Screen Exam Complete: Yes Emergency Medical Condition: Yes Medical Record Reviewed: Yes Interpretation(s) Last [address] 12/25/16 2488 Signed Impressions: Service Date/Time: Sunday, December 25, 2016 18:14 - CONCLUSION: 1. No acute intracranial abnormality. 2. Atrophy and chronic small vessel ischemic change. 3. Chronic villanueva sinus disease. Gee Kimball Jr., MD Laboratory Tests Test 12/25/16 18:08 Red Cell Distribution Width 18.2 % (11.6-17.2) Platelet Count 142 TH/MM3 (150-450) Neutrophils (%) (Auto) 78.9 % (16.0-70.0) Lymphocytes # (Auto) 0.8 TH/MM3 (1.0-4.8) Prothrombin Time 24.4 SEC (9.8-11.6) Activated Partial Thromboplast Time 31.7 SEC (24.3-30.1) Blood Urea Nitrogen 22 MG/DL (7-18) Creatinine 1.20 MG/DL (0.50-1.00) Random Glucose 112 MG/DL (74-106) Sodium Level 135 MEQ/L (136-145) Estimat Glomerular Filtration Rate 43 ML/MIN (>89) Differential Diagnosis Enlarging brain tumor versus ICH versus sinusitis versus acute on chronic headaches Narrative Course CAT scan did not show any signs of acute intracranial processes. It does show chronic sinusitis which patient states she has had in the past. Vital signs are stable in the ER although her blood pressure is somewhat elevated likely because she is due for her evening medications and related to pain. Ocular pressures are fairly normal. I do not suspect glaucoma in this case. There has not been any vision changes and there are no focal neurological deficits other than the double vision which she has had in the past. She does not have any headaches. This appears to be strictly left eye pain which on further discussion with patient and , she has had in the past. She also has been following up with Dr. Acosta and is post to see a neuro-life insurance actuary in a few weeks as well. At this point, this appears to be more of an acute on chronic symptom and considering that lab work did not show any signs of other acute processes and there are no signs of sepsis, tumor, or intracranial hemorrhage, my plan would be to release her with follow-up to ophthalmology on Tuesday. She should return for any worsening in symptoms or new symptoms as needed. The plan has discussed with her and she states understanding. INR is therapeutic. Case was discussed also with Dr. Cunningham who is covering for Dr. Acosta and he states that he is comfortable with this plan, gave me his phone number so the patient can call him should she get worse tomorrow. Procedures Procedure Narrative Tonometry was done by me in the left I and her intraocular pressures are 8, 8, and 9. Diagnosis Primary Impression: Left eye pain Referrals: Ly Acosta MD Additional Instructions: Should your symptoms worsen, you can contact Dr. Cunningham of ophthalmology at . Or return to the ER for any worsening in symptoms, vision change, worsening pain, vomiting, and as needed. Med/Other Pt SpecificInfo: Prescription(s) given Scripts Ondansetron Odt (Zofran Odt) 4 Mg Tab 4 MG SL Q6HR Y for Nausea/Vomiting, #7 TAB 0 Refills Prov: Joseluis Garcia MD 12/25/16 Hydrocodone-Acetaminophen (Lortab) 5-325 Mg Tab 1 TAB PO Q6H Y for PAIN, #12 TAB 0 Refills Prov: Joseluis Garcia MD 12/25/16 Disposition: 01 DISCHARGE HOME Condition: Stable Joseluis Garcia MD Dec 25, 2016 18:04
[2016-12-25 18:46] LABS: AUTOMATED NEUTROPHIL # 4.7 TH/MM3 (1.8-7.7); BASOPHIL % 0.7 % (0.0-2.0); EOSINOPHIL % 0.6 % (0.0-4.0); HEMATOCRIT 38.4 % (35.0-46.0); HEMOGLOBIN 12.8 GM/DL (11.6-15.3); LYMPH % 13.5 % (9.0-44.0); LYMPHOCYTE # 0.8 TH/MM3 (1.0-4.8); MEAN CELL VOLUME 89.2 FL (80.0-100.0); MEAN CORPUSCULAR HEMOGLOBIN 29.8 PG (27.0-34.0); MEAN CORPUSCULAR HGB CONC 33.4 % (32.0-36.0); MEAN PLATELET VOLUME 7.7 FL (7.0-11.0); MONO % 6.3 % (0.0-8.0); MONOCYTE # 0.4 TH/MM3 (0-0.9); NEUT % 78.9 % (16.0-70.0); PLATELET COUNT 142 TH/MM3 (150-450); RED BLOOD COUNT 4.31 MIL/MM3 (4.00-5.30); RED CELL DISTRIBUTION WIDTH 18.2 % (11.6-17.2); WHITE BLOOD COUNT 5.9 TH/MM3 (4.0-11.0)
--- NOTE | 2016-12-25 18:46 | RADRPT ---
EXAM DATE/TIME: 12/25/2016 18:14 [facility] COMPARISON: CT BRAIN W/O CONTRAST, November 12, 2016, 20:39. INDICATIONS : Headache; pain behind left eye and neck pain. RADIATION DOSE: 32.13 CTDIvol (mGy) MEDICAL HISTORY : Cardiovascular disease. Congestive heart failure. Aneurysm, abdominal.CVA SURGICAL HISTORY : CABG Appendectomy.Cholecystectomy.Hysterectomy ENCOUNTER: Initial ACUITY: 1 day PAIN SCALE: 6/10 LOCATION: cranial TECHNIQUE: Multiple contiguous axial images were obtained of the head. Using automated exposure control and adj ustment of the mA and/or kV according to patient size, radiation dose was kept as low as reasonably a chievable to obtain optimal diagnostic quality images. DICOM format image data is available electro nically for review and comparison. FINDINGS: CEREBRUM: Periventricular low attenuation change involving both cerebral hemispheres. Atrophy. The ventricles a re normal for age. No evidence of midline shift, mass lesion, hemorrhage or acute infarction. No ex tra-axial fluid collections are seen. POSTERIOR FOSSA: The cerebellum and brainstem are intact. The 4th ventricle is midline. The cerebellopontine angle i s unremarkable. EXTRACRANIAL: The visualized portion of the orbits is intact. Mucosal thickening without air-fluid level seen invol ving all paranasal sinuses with the exception of the visualized portions of the left maxillary and le ft frontal sinuses. SKULL: The calvaria is intact. No evidence of skull fracture. CONCLUSION: 1. No acute intracranial abnormality. 2. Atrophy and chronic small vessel ischemic change. 3. Chronic villanueva sinus disease. Gee Kimball Jr., MD on December 25, 2016 at 18:41 Board Certified Radiologist. This report was verified electronically.
[2016-12-25 18:50] LABS: ALKALINE PHOSPHATASE 63 U/L (45-117); TOTAL BILIRUBIN ADULT 0.6 MG/DL (0.2-1.0); TOTAL PROTEIN 6.5 GM/DL (6.4-8.2)
[2016-12-25] MEDS ORDERED: PROPARACAINE HCL 0.5% OPHT SOLN 15 ML BTL LEFT EYE ONE (19:00)
[2016-12-25 19:02] LABS: INTERNATIONAL NORMALIZED RATIO 2.1 RATIO; PROTHROMBIN TIME - PATIENT 24.4 SEC (9.8-11.6)
[2016-12-25 19:07] LABS: ALBUMIN 3.6 GM/DL (3.4-5.0); ALT (GPT) 19 U/L (10-53); AST (GOT) 21 U/L (15-37); BICARBONATE 27.8 MEQ/L (21.0-32.0); BLOOD UREA NITROGEN 22 MG/DL (7-18); C-REACTIVE PROTEIN LESS THAN 0.29 MG/DL (0.00-0.30); CHLORIDE 101 MEQ/L (98-107); GLOMERULAR FILTRATION RATE 43 ML/MIN (>89); GLUCOSE,RANDOM 112 MG/DL (74-106); SODIUM (NA) 135 MEQ/L (136-145)
[2016-12-25] MEDS ORDERED: ZOFR4TAB3 SL (19:43)
[2016-12-25] MEDS ORDERED: HYDR-3533 PO (19:43)
== END 2016-12-25 20:18 | disposition home or self-care (01) ==
LOC: NEPC 17:30
DX: H57.12 Ocular pain, left eye (principal); M54.2 Cervicalgia; R11.2 Nausea with vomiting, unspecified; I48.91 Unspecified atrial fibrillation; I50.9 Heart failure, unspecified; I11.0 Hypertensive heart disease with heart failure; Z79.01 Long term (current) use of anticoagulants
CPT/HCPCS: 70450; 80053; 85025; 85610; 85652; 85730; 86140; 96374; 96375; 99285; J1170; J2405

== ENCOUNTER 2016-12-29 22:42 | Emergency (ER) | payer MEDICARE ==
[~2016-12-29] VITALS: Ht 160 cm; Wt 65.0 kg
[~2016-12-29 22:42] MED LIST changes: +ALTA10CA10 PO; +COUM4TAB PO; -COUM5TAB PO; +HYDR-3533 PO; +ZOFR4TAB3 SL
[2016-12-29 22:47] VITALS: BP 148/73; PULSE 64; RESP 20; TEMP 98.7
[2016-12-30 00:07] VITALS: BP 160/85; PULSE 68; RESP 18; O2SAT 95
[2016-12-30] MEDS ORDERED: SODIUM CHLORIDE 0.9% FLUSH 10 ML FLUSH IVF PRN (00:45)
[2016-12-30 00:57] LABS: AUTOMATED NEUTROPHIL # 4.4 TH/MM3 (1.8-7.7); BASOPHIL % 0.4 % (0.0-2.0); EOSINOPHIL # 0.1 TH/MM3 (0-0.4); EOSINOPHIL % 0.9 % (0.0-4.0); HEMATOCRIT 40.4 % (35.0-46.0); HEMOGLOBIN 13.7 GM/DL (11.6-15.3); LYMPHOCYTE # 0.9 TH/MM3 (1.0-4.8); MEAN CELL VOLUME 88.3 FL (80.0-100.0); MEAN CORPUSCULAR HEMOGLOBIN 29.9 PG (27.0-34.0); MEAN CORPUSCULAR HGB CONC 33.9 % (32.0-36.0); MONO % 13.3 % (0.0-8.0); MONOCYTE # 0.8 TH/MM3 (0-0.9); NEUT % 71.4 % (16.0-70.0); PLATELET COUNT 142 TH/MM3 (150-450); RED BLOOD COUNT 4.57 MIL/MM3 (4.00-5.30); RED CELL DISTRIBUTION WIDTH 18.3 % (11.6-17.2); WHITE BLOOD COUNT 6.1 TH/MM3 (4.0-11.0)
[2016-12-30 00:59] VITALS: O2SAT 95
[2016-12-30 01:04] LABS: BICARBONATE 29.9 MEQ/L (21.0-32.0); CALCIUM 8.9 MG/DL (8.5-10.1); CREATININE 1.08 MG/DL (0.50-1.00)
[2016-12-30 01:07] LABS: INTERNATIONAL NORMALIZED RATIO 2.7 RATIO; PROTHROMBIN TIME - PATIENT 31.7 SEC (9.8-11.6)
--- NOTE | 2016-12-30 02:47 | PD ---
HPI Chief Complaint: GI Complaint Time Seen by Provider: 00:24 Travel History International Travel<30 days: No Contact w/Intl Traveler<30days: No Traveled to known affect area: No History of Present Illness HPI 81-year-old female came to the emergency room with history of constipation and rectal bleed. Patient says that couple days ago she had severe left shoulder pain from arthritis. She was in the emergency room and was given hydrocodone. She took the medication for the pain but eventually became constipated. She hadn't had a bowel movement in 3-4 days and was getting uncomfortable. Her got her MiraLAX and patient had to go to the bathroom this evening to move her bowels and could not. She became extremely uncomfortable at which point her tried to give her a Fleets enema and in the process injured her which led to rectal bleeding. Patient is on Coumadin for TIA. They were concerned that the bleeding would be out of control and hence called 911. Currently patient says the bleeding has stopped. She is awake and answering questions appropriately. No history of vomiting. Vital signs were relatively stable. Patient has not had any rectal bleeding in the past. COUNTS INCLUDE 234 BEDS AT THE [facility] Past Medical History Narrative Medical List of her past medical, surgical, social and family history is reviewed from the nursing note. Hx Anticoagulant Therapy: Yes (COUMADIN) AAA: Yes (ASCENDING AORTIC ANEURSYM) Anemia: Yes Arthritis: Yes Asthma: No Atrial Fibrillation: Yes Autoimmune Disease: No Blood Disorders: No Anxiety: Yes Depression: Yes Heart Rhythm Problems: Yes (AFIB/VFIB) Cancer: No Cardiac Catheterization: Yes (AVR; AORTIC ROOT ANEURYSM REPAIR) Cardiovascular Problems: Yes (AORTIC ANEURYSM, PACE MAKER) High Cholesterol: No Chemotherapy: No Chest Pain: Yes Congestive Heart Failure: Yes COPD: Yes Cerebrovascular Accident: Yes (POSSIBLE PER ) Coronary Artery Disease: Yes Diabetes: No Diminished Hearing: Yes Endocrine: Yes (CUSHINGS) Gastrointestinal Disorders: Yes (HEMHORROIDS) GERD: Yes Glaucoma: No Genitourinary: Yes (UTI, R KIDNEY STENT) Headaches: Yes Hepatitis: No Hiatal Hernia: No Hypertension: Yes Immune Disorder: No Implanted Vascular Access Dvce: Yes Kidney Stones: Yes Medical other: Yes (arthritis) Musculoskeletal: Yes (CERVICAL LAMINECTOMY, SPINAL STENOSIS, R HIP REPLACED) Neurologic: Yes Psychiatric: No Respiratory: Yes Immunizations Current: Yes Migraines: Yes Myocardial Infarction: No Radiation Therapy: No Renal Failure: Yes (ARF, STENT) Seizures: No Sleep Apnea: Yes (CPAP HS) Thyroid Disease: No Tetanus Vaccination: < 5 Years Influenza Vaccination: Yes PNEUMOCCOCAL Vaccine (Year): 2010 ?: Not Menopausal: Yes : 2 Para: 2 Ovarian Cysts: Yes Past Surgical History Abdominal Aneurysm Repair: Yes (ASCENDING AORTA REPAIR 2005) Abdominal Surgery: Yes AICD: Yes Appendectomy: Yes Arteriovenous Shunt: No Body Medical Devices: AORTIC VALVE REPLACEMENT, PACEMAKER Cardiac Surgery: Yes (aortic valve, pacemaker placement) Cholecystectomy: Yes Coronary Artery Bypass Graft: Yes Ear Surgery: No Endocrine Surgery: Yes (SHASHI ADRENALS REMOVED-OCTOBER 01, 2013) Eye Surgery: Yes (CATARACT SX BILATERAL) Genitourinary Surgery: No Gynecologic Surgery: Yes Hysterectomy: Yes Insulin Pump: No Joint Replacement: Yes (R HIP) Neurologic Surgery: Yes (brain for tumor) Oral Surgery: No Pacemaker: Yes Thoracic Surgery: Yes (2005) Valve Replacement: Yes (AORTIC VALVE REPLACEMENT ) Other Surgery: Yes (CERVICAL FUCSION, CHOLESTECTOMY, APPENDIX, HYSTERECTOMY, ANEURYSM REPLAC. .) Social History Alcohol Use: No Tobacco Use: No Substance Use: No Allergies-Medications (Allergen,Severity, Reaction): Coded Allergies: Horse/Equine Containing Products (Verified Allergy, Severe, PATIENT NOT SURE, 01/01/17) azithromycin (Verified Allergy, Severe, 01/01/17) ON DIGOXIN ciprofloxacin (Verified Allergy, Severe, 01/01/17) due to taking coumadin and digoxin clarithromycin (Verified Allergy, Severe, 01/01/17) ON DIGOXIN doxycycline (Verified Allergy, Severe, 01/01/17) due to being on coumadin and digoxin metronidazole (Verified Allergy, Severe, 01/01/17) because of being on coumadin and digoxin minocycline (Verified Allergy, Severe, 01/01/17) due to being on coumadin and digoxin sulfamethoxazole (Verified Allergy, Severe, 01/01/17) due to coumadin intake and digoxin tigecycline (Verified Allergy, Severe, 01/01/17) due to being on coumadin and digoxin trimethoprim (Verified Allergy, Severe, 01/01/17) due to coumadin intake and digoxin ampicillin (Verified Allergy, Unknown, 01/01/17) CAN NOT TAKE D/T COUMADIN fluconazole (Verified Allergy, Unknown, 01/01/17) CAN NOT TAKE D/T COUMADIN MRI PRECAUTION (Verified Adverse Reaction, Severe, NON COMPATIBLE PACEMAKER 11/13/15 LRS, 01/01/17) Uncoded Allergies: no mri (Adverse Reaction, Severe, pacemaker, 11/13/15) pacemaker in place Comments List of her allergies reviewed from the nursing note. Reported Meds & Prescriptions Reported Meds & Active Scripts Active Zofran Odt (Ondansetron Odt) 4 Mg Tab 4 Mg SL Q6HR PRN Lortab (Hydrocodone-Acetaminophen) 5-325 Mg Tab 1 Tab PO Q6H PRN Ramipril 10 Mg Cap 10 Mg PO DAILY Please change your dosing from twice a day to only once a day. Your BP has been low. Reported D 1000 (Cholecalciferol) 1,000 Unit Tab 1,000 Units PO DAILY Coumadin (Warfarin) 4 Mg Tab 4 Mg PO SUMOWEFR Take 1 tablet (4mg) on Tuesday,Tuesday,Tuesday and Tuesday Coumadin (Warfarin) 3 Mg Tab 3 Mg PO TUTHSA Take 1 tablet (3mg) on Tuesday, and Tuesday Hydrocortisone 5 Mg Tab 5 Mg PO AC DINNER Take with dinner to decrease GI upset Hydrocortisone 10 Mg Tab 10 Mg PO BID Take with breakfast and lunch to decrease GI upset Citalopram (Citalopram Hydrobromide) 20 Mg Tab 20 Mg PO DAILY B12 (Cyanocobalamin) 1,000 Mcg Tab 1,000 Mcg PO DAILY Potassium Chloride ER (Potassium Chloride) 10 Meq Cap 10 Meq PO DAILY Ritalin IR (Methylphenidate HCl) 10 Mg Tab 10 Mg PO DAILY Omeprazole 20 Mg Tab 20 Mg PO BID Magnesium Oxide 250 Mg Tab 250 Mg PO DAILY Probiotic (Lactobacillus Acidophilus) 1 Cap Cap 1 Cap PO DAILY Fludrocortisone (Fludrocortisone Acetate) 0.1 Mg Tab 0.05 Mg PO MOWEFR Take 1/2 tablet (0.05mg) on Tuesday,Tuesday and Tuesday Flaxseed Oil [place]-3 (Flaxseed (Linseed)) 1,000 Mg Cap 1 Cap PO DAILY Carvedilol 25 Mg Tab 25 Mg PO BID Atorvastatin (Atorvastatin Calcium) 20 Mg Tab 20 Mg PO HS Co Q 10 (Coenzyme Q10 (Ubidecarenone)) 100 Mg Cap 100 Mg PO DAILY Narrative Medication List of her home medications reviewed from the nursing note. Review of Systems Except as stated in HPI: all other systems reviewed are Neg Gastrointestinal: Positive: Hematochezia, Constipation Physical Exam Narrative GENERAL: Awake, alert, moderate distress SKIN: Focused skin assessment warm/dry. HEAD: Atraumatic. Normocephalic. EYES: Pupils equal and round. No scleral icterus. No injection or drainage. ENT: No nasal bleeding or discharge. Mucous membranes pink and moist. NECK: Trachea midline. No JVD. CARDIOVASCULAR: Regular rate and rhythm. No murmur appreciated. RESPIRATORY: No accessory muscle use. Clear to auscultation. Breath sounds equal bilaterally. GASTROINTESTINAL: Abdomen soft, non-tender, nondistended. Hepatic and splenic margins not palpable. Rectal exam showed a nonthrombosed hemorrhoid at 7 o' clock position. There was fecal material. Anal the and on her underwear. No blood noticed. Digital exam performed and there was soft stool in the rectal vault. There was some discomfort during the exam but no blood noticed. MUSCULOSKELETAL: No obvious deformities. No clubbing. No cyanosis. No edema. NEUROLOGICAL: Awake and alert. No obvious cranial nerve deficits. Motor grossly within normal limits. Normal speech. PSYCHIATRIC: Appropriate mood and affect; insight and judgment normal. Data Data Last Documented VS Orders Orders Basic Metabolic Panel (Bmp) (12/30/16 00:32) Complete Blood Count With Diff (12/30/16 00:32) Prothrombin Time / Inr (Pt) (12/30/16 00:32) Type And Screen (12/30/16 00:32) Ecg Monitoring (12/30/16 00:32) Iv Access Insert/Monitor (12/30/16 00:32) Oximetry (12/30/16 00:32) Sodium Chloride 0.9% Flush (Ns Flush) (12/30/16 00:45) Enema (12/30/16 00:32) Ed Discharge Order (12/30/16 02:47) Electrocardiogram (12/30/16 00:15) Labs Laboratory Tests Test 12/30/16 00:35 White Blood Count 6.1 TH/MM3 Red Blood Count 4.57 MIL/MM3 Hemoglobin 13.7 GM/DL Hematocrit 40.4 % Mean Corpuscular Volume 88.3 FL Mean Corpuscular Hemoglobin 29.9 PG Mean Corpuscular Hemoglobin Concent 33.9 % Red Cell Distribution Width 18.3 % Platelet Count 142 TH/MM3 Mean Platelet Volume 8.0 FL Neutrophils (%) (Auto) 71.4 % Lymphocytes (%) (Auto) 14.0 % Monocytes (%) (Auto) 13.3 % Eosinophils (%) (Auto) 0.9 % Basophils (%) (Auto) 0.4 % Neutrophils # (Auto) 4.4 TH/MM3 Lymphocytes # (Auto) 0.9 TH/MM3 Monocytes # (Auto) 0.8 TH/MM3 Eosinophils # (Auto) 0.1 TH/MM3 Basophils # (Auto) 0.0 TH/MM3 CBC Comment DIFF FINAL Differential Comment Prothrombin Time 31.7 SEC Prothromb Time International Ratio 2.7 RATIO Blood Urea Nitrogen 22 MG/DL Creatinine 1.08 MG/DL Random Glucose 90 MG/DL Calcium Level 8.9 MG/DL Sodium Level 135 MEQ/L Potassium Level 5.0 MEQ/L Chloride Level 98 MEQ/L Carbon Dioxide Level 29.9 MEQ/L Anion Gap 7 MEQ/L Estimat Glomerular Filtration Rate 49 ML/MIN [facility] Medical Decision Making Medical Screen Exam Complete: Yes Emergency Medical Condition: Yes Medical Record Reviewed: Yes Interpretation(s) Twelve-lead EKG was reviewed by me. Paced rhythm. Heart rate of 67 bpm. Differential Diagnosis Constipation, anal tear, anal fissure Narrative Course 3:13 AM patient was given soapsuds enema. She has had a large bowel movement since then. No gross blood noticed. Vital signs remained stable. Blood test results of back and H&H is stable. Her INR is 2.7. I'm comfortable at this point discharging the patient home. Patient says she just feels tired but that' s because she hasn't had a good sleep or rest in past couple days. is comfortable taking her home. Procedures EKG Prior to Arrival: No Diagnosis Primary Impression: Constipation Qualified Codes: K59.00 - Constipation, unspecified Additional Impression: Anal fissure Referrals: Primary Care Physician 2 days Additional Instructions: Please return to the ER if the condition worsens or any other new concerns. Otherwise follow-up with your primary care doctor. Continue taking the MiraLAX at home. Drink lots of fluid and high fiber diet. Disposition: 01 DISCHARGE HOME Condition: Stable Katie Mccurdy MD Dec 30, 2016 02:47
--- NOTE | 2016-12-30 15:02 | EKG ---
Date Performed: 12/30/2016 Time Performed: 00:15:41 PTAGE: 81 years EKG: ELECTRONIC VENTRICULAR PACEMAKER ABNORMAL RHYTHM ECG PREVIOUS TRACING 11/12/2016 @ 20.33.35 Compared to prior tracing no significant change DOCTOR: Erin Arce Interpretating Date/Time 12/30/2016 14:55:31
== END 2016-12-30 03:07 | disposition home or self-care (01) ==
LOC: NEPE 22:42
DX: K59.00 Constipation, unspecified (principal); K60.2 Anal fissure, unspecified; M25.512 Pain in left shoulder; R94.31 Abnormal electrocardiogram [ECG] [EKG]; D64.9 Anemia, unspecified; I13.0 Hypertensive heart and chronic kidney disease with heart failure and stage 1 through stage 4 chronic kidney disease, or unspecified chronic kidney disease; I50.9 Heart failure, unspecified; N18.9 Chronic kidney disease, unspecified; I25.10 Atherosclerotic heart disease of native coronary artery without angina pectoris
CPT/HCPCS: 80048; 85025; 85610; 86850; 86900; 86901; 93005; 99284

== ENCOUNTER 2017-01-01 10:14 | Observation (INO) | payer MEDICARE ==
[2017-01-01] VITALS (9 sets, daily range): BP systolic 89–157; BP diastolic 56–76; PULSE 62–78; RESP 18–20; TEMP 96.2–98; O2SAT 91–99
[~2017-01-01 10:14] MED LIST changes: -ALTA10CA10 PO
[2017-01-01] MEDS ORDERED: SODIUM CHLOR 0.9% 1000 ML INJ 1,000 ML IV SCH (10:35)
[2017-01-01] MEDS ORDERED: SODIUM CHLORIDE 0.9% FLUSH 10 ML FLUSH IV FLUSH PRN ×2 (10:45→16:00)
--- NOTE | 2017-01-01 11:16 | PD ---
HPI . Generalized weakness Chief Complaint: General Weakness Time Seen by Provider: 10:35 Travel History International Travel<30 days: No Contact w/Intl Traveler<30days: No History of Present Illness HPI This patient is brought to us by EVAC with the chief complaint per her of generalized weakness. He states that she is just been lying in bed. She won 't eat. He has noticed decreased urinary output. He was concerned and called EVAC this morning. He states that her symptoms all started after she was seen here for constipation a couple of nights ago. He has not noted a fever. She has had no nausea or vomiting. No noted urinary tract symptoms. No chest pain or shortness of breath. No exacerbating or relieving factor. PFSH Past Medical History Hx Anticoagulant Therapy: Yes (COUMADIN) AAA: Yes (ASCENDING AORTIC ANEURSYM) Anemia: Yes Arthritis: Yes Asthma: No Atrial Fibrillation: Yes Autoimmune Disease: No Blood Disorders: No Anxiety: Yes Depression: Yes Heart Rhythm Problems: Yes (AFIB/VFIB) Cancer: No Cardiac Catheterization: Yes (AVR; AORTIC ROOT ANEURYSM REPAIR) Cardiovascular Problems: Yes (AORTIC ANEURYSM, PACE MAKER) High Cholesterol: No Chemotherapy: No Chest Pain: Yes Congestive Heart Failure: Yes COPD: Yes Cerebrovascular Accident: Yes (POSSIBLE PER ) Coronary Artery Disease: Yes Diabetes: No Diminished Hearing: Yes Endocrine: Yes (CUSHINGS) Gastrointestinal Disorders: Yes (HEMHORROIDS) GERD: Yes Glaucoma: No Genitourinary: Yes (UTI, R KIDNEY STENT) Headaches: Yes Hepatitis: No Hiatal Hernia: No Hypertension: Yes Immune Disorder: No Implanted Vascular Access Dvce: Yes Kidney Stones: Yes Musculoskeletal: Yes (CERVICAL LAMINECTOMY, SPINAL STENOSIS, R HIP REPLACED) Neurologic: Yes Psychiatric: No Respiratory: Yes Immunizations Current: Yes Migraines: Yes Myocardial Infarction: No Radiation Therapy: No Renal Failure: Yes (ARF, STENT) Seizures: No Sleep Apnea: Yes (CPAP HS) Thyroid Disease: No PNEUMOCCOCAL Vaccine (Year): 2010 Menopausal: Yes : 2 Para: 2 Ovarian Cysts: Yes Past Surgical History Abdominal Aneurysm Repair: Yes (ASCENDING AORTA REPAIR 2005) Abdominal Surgery: Yes AICD: Yes Appendectomy: Yes Arteriovenous Shunt: No Body Medical Devices: AORTIC VALVE REPLACEMENT, PACEMAKER Cardiac Surgery: Yes (aortic valve, pacemaker placement) Cholecystectomy: Yes Coronary Artery Bypass Graft: Yes Ear Surgery: No Endocrine Surgery: Yes (SHASHI ADRENALS REMOVED-OCTOBER 01, 2013) Eye Surgery: Yes (CATARACT SX BILATERAL) Genitourinary Surgery: No Gynecologic Surgery: Yes Hysterectomy: Yes Insulin Pump: No Joint Replacement: Yes (R HIP) Neurologic Surgery: Yes (brain for tumor) Oral Surgery: No Pacemaker: Yes Thoracic Surgery: Yes (2005) Valve Replacement: Yes (AORTIC VALVE REPLACEMENT ) Other Surgery: Yes (CERVICAL FUCSION, CHOLESTECTOMY, APPENDIX, HYSTERECTOMY, ANEURYSM REPLAC. .) Social History Alcohol Use: No Tobacco Use: No Substance Use: No Allergies-Medications (Allergen,Severity, Reaction): Coded Allergies: Horse/Equine Containing Products (Verified Allergy, Severe, PATIENT NOT SURE, 01/01/17) azithromycin (Verified Allergy, Severe, 01/01/17) ON DIGOXIN ciprofloxacin (Verified Allergy, Severe, 01/01/17) due to taking coumadin and digoxin clarithromycin (Verified Allergy, Severe, 01/01/17) ON DIGOXIN doxycycline (Verified Allergy, Severe, 01/01/17) due to being on coumadin and digoxin metronidazole (Verified Allergy, Severe, 01/01/17) because of being on coumadin and digoxin minocycline (Verified Allergy, Severe, 01/01/17) due to being on coumadin and digoxin sulfamethoxazole (Verified Allergy, Severe, 01/01/17) due to coumadin intake and digoxin tigecycline (Verified Allergy, Severe, 01/01/17) due to being on coumadin and digoxin trimethoprim (Verified Allergy, Severe, 01/01/17) due to coumadin intake and digoxin ampicillin (Verified Allergy, Unknown, 01/01/17) CAN NOT TAKE D/T COUMADIN fluconazole (Verified Allergy, Unknown, 01/01/17) CAN NOT TAKE D/T COUMADIN MRI PRECAUTION (Verified Adverse Reaction, Severe, NON COMPATIBLE PACEMAKER 11/13/15 LRS, 01/01/17) Uncoded Allergies: no mri (Adverse Reaction, Severe, pacemaker, 11/13/15) pacemaker in place Reported Meds & Prescriptions Reported Meds & Active Scripts Active Zofran Odt (Ondansetron Odt) 4 Mg Tab 4 Mg SL Q6HR PRN Lortab (Hydrocodone-Acetaminophen) 5-325 Mg Tab 1 Tab PO Q6H PRN Ramipril 10 Mg Cap 10 Mg PO DAILY Please change your dosing from twice a day to only once a day. Your BP has been low. Reported Coumadin (Warfarin) 4 Mg Tab 4 Mg PO JOHNSON,M,W,F Coumadin (Warfarin) 3 Mg Tab 3 Mg PO DAILY T,,S Hydrocortisone 5 Mg Tab 5 Mg PO AC DINNER Take with food to decrease GI upset Hydrocortisone 10 Mg Tab 10 Mg PO BID Take with food to decrease GI upset Genteal Gel Drops (Carboxymethylcell/Hypromellose) 25 Ml Drp.lq.gel 1 Drop EACH EYE HS Refresh Tears Opth Drops (Carboxymethylcellulose Sodium Opth Drops) 0.5% Drops 1 Drop EACH EYE PRN Citalopram (Citalopram Hydrobromide) 20 Mg Tab 20 Mg PO DAILY B12 (Cyanocobalamin) 1,000 Mcg Tab DAILY Potassium Chloride ER (Potassium Chloride) 10 Meq Cap 10 Meq PO DAILY Ritalin IR (Methylphenidate HCl) 10 Mg Tab 10 Mg PO DAILY Omeprazole 20 Mg Tab 20 Mg PO BID Magnesium Oxide 250 Mg Tab 250 Mg PO DAILY Probiotic (Lactobacillus Acidophilus) 1 Cap Cap 1 Cap PO DAILY Fludrocortisone (Fludrocortisone Acetate) 0.1 Mg Tab 0.05 Mg PO MWF Flaxseed Oil [place]-3 (Flaxseed (Linseed)) 1,000 Mg Cap 1 Cap PO DAILY Vitamin D3 (Cholecalciferol) 1,000 Unit/[place] 1,000 PO DAILY Carvedilol 25 Mg Tab 25 Mg PO BID Atorvastatin (Atorvastatin Calcium) 20 Mg Tab 20 Mg PO HS Co Q 10 (Coenzyme Q10 (Ubidecarenone)) 100 Mg Cap 1 Cap PO DAILY Review of Systems Except as stated in HPI: all other systems reviewed are Neg General / Constitutional: No: Fever, Chills Eyes: No: Blurred Vision HENT: No: Headaches Cardiovascular: No: Chest Pain or Discomfort Respiratory: No: Shortness of Breath Gastrointestinal: Positive: Loss of Appetite, No: Nausea, Vomiting, Diarrhea Genitourinary: Positive: Decreased Urinary Output, No: Urgency, Frequency, Dysuria Neurologic: Positive: Weakness Physical Exam Narrative GENERAL: This is an elderly, chronically ill-appearing woman who did not appear to be interested in participating in her history and physical. SKIN: warm/dry. Cyanosis of her lips. HEAD: Normocephalic. Atraumatic. EYES: Pupils equal and round. No scleral icterus. No injection or drainage. ENT: No nasal bleeding or discharge. Mucous membranes pink and moist. NECK: Trachea midline. Full range of motion without pain.. CARDIOVASCULAR: Regular rate and rhythm. Heart sounds were normal. RESPIRATORY: No accessory muscle use. Clear to auscultation. Breath sounds equal bilaterally. GASTROINTESTINAL: Abdomen soft. Nontender. Bowel sounds present. Nondistended. MUSCULOSKELETAL: No obvious deformities. NEUROLOGICAL: Awake and alert. No obvious cranial nerve deficits. Motor grossly within normal limits. Normal speech. PSYCHIATRIC: Depressed mood and affect. Data Data Last Documented VS Vital Signs Date Time Temp Pulse Resp B/P (MAP) Pulse Ox O2 Delivery O2 Flow Rate FiO2 01/01/17 14:58 68 18 111/68 (82) 99 Nasal Cannula 2.00 Orders Orders Complete Blood Count With Diff (01/01/17 10:35) Comprehensive Metabolic Panel (01/01/17 10:35) Lactic Acid (01/01/17 10:35) Urinalysis - C+S If Indicated (01/01/17 10:35) Abdomen, Flat & Upright (01/01/17 ) Iv Access Insert/Monitor (01/01/17 10:35) Ecg Monitoring (01/01/17 10:35) Oximetry (01/01/17 10:35) Sodium Chlor 0.9% 1000 Ml Inj (Ns 1000 M (01/01/17 10:35) Sodium Chloride 0.9% Flush (Ns Flush) (01/01/17 10:45) Electrocardiogram (01/01/17 10:35) Chest, Single Ap (01/01/17 10:35) Labs Laboratory Tests Test 01/01/17 11:40 01/01/17 14:35 White Blood Count 8.5 TH/MM3 Red Blood Count 4.65 MIL/MM3 Hemoglobin 14.2 GM/DL Hematocrit 41.1 % Mean Corpuscular Volume 88.4 FL Mean Corpuscular Hemoglobin 30.5 PG Mean Corpuscular Hemoglobin Concent 34.4 % Red Cell Distribution Width 18.1 % Platelet Count 133 TH/MM3 Mean Platelet Volume 7.4 FL Neutrophils (%) (Auto) 84.0 % Lymphocytes (%) (Auto) 7.3 % Monocytes (%) (Auto) 7.7 % Eosinophils (%) (Auto) 0.6 % Basophils (%) (Auto) 0.4 % Neutrophils # (Auto) 7.1 TH/MM3 Lymphocytes # (Auto) 0.6 TH/MM3 Monocytes # (Auto) 0.7 TH/MM3 Eosinophils # (Auto) 0.0 TH/MM3 Basophils # (Auto) 0.0 TH/MM3 CBC Comment DIFF FINAL Differential Comment Blood Urea Nitrogen 25 MG/DL Creatinine 1.21 MG/DL Random Glucose 94 MG/DL Total Protein 6.6 GM/DL Albumin 2.9 GM/DL Calcium Level 8.2 MG/DL Alkaline Phosphatase 58 U/L Aspartate Amino Transf (AST/SGOT) 36 U/L Alanine Aminotransferase (ALT/SGPT) 17 U/L Total Bilirubin 1.2 MG/DL Sodium Level 130 MEQ/L Potassium Level 4.8 MEQ/L Chloride Level 98 MEQ/L Carbon Dioxide Level 24.6 MEQ/L Anion Gap 7 MEQ/L Estimat Glomerular Filtration Rate 43 ML/MIN Lactic Acid Level 1.4 mmol/L Urine Color YELLOW Urine Turbidity CLEAR Urine pH 6.5 Urine Specific [place] 1.010 Urine Protein NEG mg/dL Urine Glucose (UA) NEG mg/dL Urine Ketones NEG mg/dL Urine Occult Blood NEG Urine Nitrite NEG Urine Bilirubin NEG Urine Urobilinogen LESS THAN 2.0 MG/DL Urine Leukocyte Esterase NEG Urine RBC LESS THAN 1 /hpf Urine WBC LESS THAN 1 /hpf Microscopic Urinalysis Comment CULT NOT INDICATED MDM Medical Decision Making Medical Screen Exam Complete: Yes Emergency Medical Condition: Yes Medical Record Reviewed: Yes (medical history is significant for hyperaldosteronism, AF, TIA, anemia, CHF) Interpretation(s) EKG shows a paced rhythm Differential Diagnosis Differential diagnosis of weakness includes but is not limited to infection, CVA , electrolyte disturbance, renal failure, hypoglycemia, UTI, ACS, acute blood loss Narrative Course This patient presents with weakness. She looks chronically ill. I suspect that her current symptoms are not unexpected. CBC & BMP Diagram 01/01/17 11:40 Total Protein 6.6, Albumin 2.9 L, Calcium Level 8.2 L, Alkaline Phosphatase 58, Aspartate Amino Transf (AST/SGOT) 36, Alanine Aminotransferase (ALT/SGPT) 17, Total Bilirubin 1.2 H This kidney function looks about baseline for this patient. UA neg. I have not found an acute problem requiring hospitalization. This patient will be discharged to home. My discharge statement. Diagnosis Primary Impression: Weakness Patient Instructions: General Instructions, Weakness (DC) Additional Instructions: Contact her primary care provider if weakness persists. You may need admission to a rehabilitation facility or home health. Disposition: 01 DISCHARGE HOME Condition: Stable Мария Vazquez MD Jan 01, 2017 11:16
--- NOTE | 2017-01-01 11:23 | RADRPT ---
EXAM DATE/TIME: 01/01/2017 10:48 [facility] COMPARISON: CHEST SINGLE AP, November 12, 2016, 20:56. INDICATIONS : Shortness of breath and weakness. MEDICAL HISTORY : Aneurysm, abdominal. Chronic obstructive pulmonary disease. SURGICAL HISTORY : Abdominal aortic aneurysm repair. Pacemaker. Brain tumor removal. ORIF right hip. ENCOUNTER: Initial ACUITY: 1 day PAIN SCORE: 0/10 LOCATION: Bilateral chest FINDINGS: Median sternotomy wires are noted status post cardiac surgery. Left subclavian multi-lead pacemaker has its tips in the right heart. The heart is enlarged. The lungs are clear. CONCLUSION: 1. Cardiomegaly. 2. No acute focal pulmonary infiltrate or pulmonary vascular congestion. Nura Corona MD on January 01, 2017 at 11:19 Board Certified Radiologist. This report was verified electronically.
--- NOTE | 2017-01-01 11:31 | RADRPT ---
EXAM DATE/TIME: 01/01/2017 10:50 [facility] COMPARISON: No previous studies available for comparison. INDICATIONS : Abdominal pain. MEDICAL HISTORY : Aneurysm, abdominal. Cardiovascular disease Hypertension. COPD SURGICAL HISTORY : Abdominal aortic aneurysm repair. Appendectomy.Hysterectomy.GB Pacemaker ENCOUNTER: Initial ACUITY: 1 week PAIN SCORE: 5/10 LOCATION: Abdominal pain. FINDINGS: There is a nonspecific bowel gas pattern. There is no evidence of bowel obstruction or ileus. No fr ee intraperitoneal air is noted. Degenerative changes and scoliosis of the thoracolumbar spine are n oted. Right hip replacement is noted. The patient is status post cholecystectomy. Scattered phlebo liths are noted within the pelvis. CONCLUSION: 1. No evidence of bowel obstruction, ileus or perforation. 2. Degenerative changes and scoliosis of the thoracolumbar spine. Nura Corona MD on January 01, 2017 at 11:20 Board Certified Radiologist. This report was verified electronically.
[2017-01-01 12:08] LABS: AUTOMATED NEUTROPHIL # 7.1 TH/MM3 (1.8-7.7); BASOPHIL % 0.4 % (0.0-2.0); EOSINOPHIL % 0.6 % (0.0-4.0); HEMATOCRIT 41.1 % (35.0-46.0); HEMO FLAGS DIFF FINAL; LYMPH % 7.3 % (9.0-44.0); LYMPHOCYTE # 0.6 TH/MM3 (1.0-4.8); MEAN CELL VOLUME 88.4 FL (80.0-100.0); MEAN CORPUSCULAR HEMOGLOBIN 30.5 PG (27.0-34.0); MEAN CORPUSCULAR HGB CONC 34.4 % (32.0-36.0); MONO % 7.7 % (0.0-8.0); PLATELET COUNT 133 TH/MM3 (150-450); RED BLOOD COUNT 4.65 MIL/MM3 (4.00-5.30); RED CELL DISTRIBUTION WIDTH 18.1 % (11.6-17.2); WHITE BLOOD COUNT 8.5 TH/MM3 (4.0-11.0)
[2017-01-01 12:26] LABS: ALKALINE PHOSPHATASE 58 U/L (45-117); TOTAL BILIRUBIN ADULT 1.2 MG/DL (0.2-1.0)
[2017-01-01 12:30] LABS: ALT (GPT) 17 U/L (10-53); ANION GAP 7 MEQ/L (5-15); AST (GOT) 36 U/L (15-37); BICARBONATE 24.6 MEQ/L (21.0-32.0); BLOOD UREA NITROGEN 25 MG/DL (7-18); CHLORIDE 98 MEQ/L (98-107); GLOMERULAR FILTRATION RATE 43 ML/MIN (>89); POTASSIUM 4.8 MEQ/L (3.5-5.1); SODIUM (NA) 130 MEQ/L (136-145)
[2017-01-01 15:12] LABS: BLOOD, URINE NEG (NEG); GLUCOSE,URINE NEG (NEG); KETONE, URINE NEG (NEG); NITRITE,URINE NEG (NEG); PH, URINE 6.5 (5.0-8.5); URINE COLOR YELLOW (YELLW/STRAW)
[2017-01-01 15:18] LABS: COMMENT (UR) CULT NOT INDICATED; CULTURE IF INDICATED CULT NOT INDICATED
[2017-01-01] MEDS ORDERED: HYDROCORTISONE SOD SUCCINATE 100 MG VIAL IV PUSH ONE (15:45)
[2017-01-01] MEDS ORDERED: SODIUM CHLOR 0.45% 1000 ML INJ 1,000 ML IV SCH (15:49)
[2017-01-01] MEDS ORDERED: LACTULOSE SYRUP 20 GM/30 ML CUP PO PRN (16:00)
[2017-01-01] MEDS ORDERED: SENNOSIDES 8.6 MG TAB PO PRN (16:00)
[2017-01-01] MEDS ORDERED: ONDANSETRON HCL 4 MG/2 ML VIAL IVP PRN (16:00)
[2017-01-01] MEDS ORDERED: BISACODYL 10 MG SUPP RECTAL PRN (16:00)
[2017-01-01] MEDS ORDERED: MAGNESIUM HYDROXIDE SUSP 30 ML CUP PO PRN (16:00)
[2017-01-01] MEDS ORDERED: NALOXONE HCL 0.4 MG/ML AMP IV PUSH PRN (16:00)
[2017-01-01 16:45] LABS: INTERNATIONAL NORMALIZED RATIO 1.9 RATIO; PROTHROMBIN TIME - PATIENT 21.4 SEC (9.8-11.6)
--- NOTE | 2017-01-01 17:10 | HHI.HP ---
[facility] Primary Care Physician Flaquita Arrieta MD Admission Diagnosis weakness Diagnoses: Chief Complaint: Generalized weakness Travel History International Travel<30 Days: No Contact w/Intl Traveler <30 Da: No Traveled to Known Affected Are: No History of Present Illness This is a 81-year-old female past medical history of HTN, A. fib on Coumadin, AAA, Anxiety, Depression, AVR s/p Bovine Valve, Aortic root Aneurysm Repair, h/ o TIA, CHF (Echo 11/14/15 w/ EF 50%), COPD and Sleep Apnea on CPAP who presented with generalized weakness. Patient seems to be a poor historian and history taken from her . Her stated that prior to this episode patient was ambulating with a walker and doing normal activities without any difficulty. He stated 1 week ago and a baked about 400 cookies and she developed left shoulder pain. She went to see her primary care provider and she was prescribed hydrocodone. Since she was prescribed this medication she has been weak and sedated. Patient stated that she is not able to do anything because she is too sleepy. Her stated that he also put a heating pad on her left shoulder and that it burned the area. states she gets home PT. Otherwise patient denies any focal neurological deficits, visual changes, headache. He does state that she was constipated a few days ago but now she has normal bowel movements. All other review systems reviewed negative. Past Family Social History Past Medical History HTN, A. fib on Coumadin, AAA, Anxiety, Depression, AVR s/p Bovine Valve, Aortic root Aneurysm Repair, h/o TIA, CHF (Echo 11/14/15 w/ EF 50%), COPD and Sleep Apnea, adrenal insufficiency Past Surgical History Aortic Valve Replacement, AICD, AAA Repair, Appendectomy, Bilateral Adrenalectomy, Cataract Surgery, Hysterectomy, Right Hip Replacement, Brain Tumor, Right Ankle Surgery Reported Medications Reported Meds & Active Scripts Active Zofran Odt (Ondansetron Odt) 4 Mg Tab 4 Mg SL Q6HR PRN Lortab (Hydrocodone-Acetaminophen) 5-325 Mg Tab 1 Tab PO Q6H PRN Ramipril 10 Mg Cap 10 Mg PO DAILY Please change your dosing from twice a day to only once a day. Your BP has been low. Reported Coumadin (Warfarin) 4 Mg Tab 4 Mg PO JOHNSON,M,W,F Coumadin (Warfarin) 3 Mg Tab 3 Mg PO DAILY T,TH,S Hydrocortisone 5 Mg Tab 5 Mg PO AC DINNER Take with food to decrease GI upset Hydrocortisone 10 Mg Tab 10 Mg PO BID Take with food to decrease GI upset Genteal Gel Drops (Carboxymethylcell/Hypromellose) 25 Ml Drp.lq.gel 1 Drop EACH EYE HS Refresh Tears Opth Drops (Carboxymethylcellulose Sodium Opth Drops) 0.5% Drops 1 Drop EACH EYE PRN Citalopram (Citalopram Hydrobromide) 20 Mg Tab 20 Mg PO DAILY B12 (Cyanocobalamin) 1,000 Mcg Tab DAILY Potassium Chloride ER (Potassium Chloride) 10 Meq Cap 10 Meq PO DAILY Ritalin IR (Methylphenidate HCl) 10 Mg Tab 10 Mg PO DAILY Omeprazole 20 Mg Tab 20 Mg PO BID Magnesium Oxide 250 Mg Tab 250 Mg PO DAILY Probiotic (Lactobacillus Acidophilus) 1 Cap Cap 1 Cap PO DAILY Fludrocortisone (Fludrocortisone Acetate) 0.1 Mg Tab 0.05 Mg PO MWF Flaxseed Oil [place]-3 (Flaxseed (Linseed)) 1,000 Mg Cap 1 Cap PO DAILY Vitamin D3 (Cholecalciferol) 1,000 Unit/[place] 1,000 PO DAILY Carvedilol 25 Mg Tab 25 Mg PO BID Atorvastatin (Atorvastatin Calcium) 20 Mg Tab 20 Mg PO HS Co Q 10 (Coenzyme Q10 (Ubidecarenone)) 100 Mg Cap 1 Cap PO DAILY Allergies: Coded Allergies: Horse/Equine Containing Products (Verified Allergy, Severe, PATIENT NOT SURE, 01/01/17) azithromycin (Verified Allergy, Severe, 01/01/17) ON DIGOXIN ciprofloxacin (Verified Allergy, Severe, 01/01/17) due to taking coumadin and digoxin clarithromycin (Verified Allergy, Severe, 01/01/17) ON DIGOXIN doxycycline (Verified Allergy, Severe, 01/01/17) due to being on coumadin and digoxin metronidazole (Verified Allergy, Severe, 01/01/17) because of being on coumadin and digoxin minocycline (Verified Allergy, Severe, 01/01/17) due to being on coumadin and digoxin sulfamethoxazole (Verified Allergy, Severe, 01/01/17) due to coumadin intake and digoxin tigecycline (Verified Allergy, Severe, 01/01/17) due to being on coumadin and digoxin trimethoprim (Verified Allergy, Severe, 01/01/17) due to coumadin intake and digoxin ampicillin (Verified Allergy, Unknown, 01/01/17) CAN NOT TAKE D/T COUMADIN fluconazole (Verified Allergy, Unknown, 01/01/17) CAN NOT TAKE D/T COUMADIN MRI PRECAUTION (Verified Adverse Reaction, Severe, NON COMPATIBLE PACEMAKER 11/13/15 LRS, 01/01/17) Uncoded Allergies: no mri (Adverse Reaction, Severe, pacemaker, 11/13/15) pacemaker in place Active Ordered Medications Current Medications Sodium Chloride 1,000 ml @ 1,000 mls/hr Q1H IV Last administered on 12:13; Start 01/01/17 at 10:35; Stop 01/01/17 at 11:34; Status DC Sodium Chloride (NS Flush) 2 ml UNSCH PRN IV FLUSH FLUSH AFTER USING IV ACCESS ; Start 01/01/17 at 10:45 Hydrocortisone Sodium Succinate (SoluCORTEF INJ) 100 mg ONCE ONCE IV PUSH Last administered on 01/01/17 16:34; Start 01/01/17 at 15:45; Stop 01/01/17 at 15:46; Status DC Sodium Chloride 1,000 ml @ 75 mls/hr [id number] IV Last administered on 16:35; Start 01/01/17 at 15:49; Stop 01/02/17 at 05:08 Sodium Chloride (NS Flush) 2 ml UNSCH PRN IV FLUSH FLUSH AFTER USING IV ACCESS ; Start 01/01/17 at 16:00 Sodium Chloride (NS Flush) 2 ml BID IV FLUSH ; Start 01/01/17 at 21:00 Ondansetron HCl (Zofran Inj) 4 mg Q6H PRN IVP NAUSEA OR VOMITING; Start at 16:00 Naloxone HCl (Narcan Inj) 0.4 mg UNSCH PRN IV PUSH SEE LABEL COMMENTS; Start 01/01/17 at 16:00 Magnesium Hydroxide (Milk Of Magnesia Liq) 30 ml Q12H PRN PO Mild constipation ; Start 01/01/17 at 16:00 Sennosides (Senokot) 17.2 mg Q12H PRN PO Moderate constipation; Start at 16:00 Bisacodyl (Dulcolax Supp) 10 mg DAILY PRN RECTAL SEVERE CONSITIPATION; Start 01/01/17 at 16:00 Lactulose (Lactulose Liq) 30 ml DAILY PRN PO SEVERE CONSITIPATION; Start 01/01 at 16:00 Family History Reviewed. No h/o DM or CAD Social History Denied any tobacco, alcohol illicit drug use. Patient lives at home with her . Uses a walker prior from this episode. Physical Exam Vital Signs Vital Signs Date Time Temp Pulse Resp B/P (MAP) Pulse Ox O2 Delivery O2 Flow Rate FiO2 01/01/17 16:35 64 18 141/69 (93) 98 Nasal Cannula 2.00 01/01/17 14:58 68 18 111/68 (82) 99 Nasal Cannula 2.00 01/01/17 12:18 68 18 126/76 (93) 95 Room Air 01/01/17 12:18 68 18 126/76 (93) 95 Nasal Cannula 2.00 01/01/17 11:10 78 18 89/56 (67) 98 Physical Exam GENERAL: This is a well-nourished, well-developed patient in no acute distress. SKIN: Left anterior and posterior shoulder along with the left side the neck macular erythematous rash with some blistering. HEAD: Atraumatic. Normocephalic. No temporal or scalp tenderness. EYES: Pupils equal round and reactive. Extraocular motions intact. No scleral icterus. No injection or drainage. Eyes are puffy and bluish her this is normal for her. ENT: Nose without bleeding, purulent drainage or septal hematoma. Throat without erythema, tonsillar hypertrophy or exudate. Uvula midline. Airway patent. NECK: Trachea midline. No JVD or lymphadenopathy. Supple, nontender, no meningeal signs. CARDIOVASCULAR: Regular rate and rhythm without murmurs, gallops, or rubs. RESPIRATORY: Clear to auscultation. Breath sounds equal bilaterally. No wheezes , rales, or rhonchi. GASTROINTESTINAL: Abdomen soft, non-tender, nondistended. No hepato-splenomegaly , or palpable masses. No guarding. MUSCULOSKELETAL: Extremities without clubbing, cyanosis, or edema. No joint tenderness, effusion, or edema noted. No calf tenderness. Negative Homans sign bilaterally. NEUROLOGICAL: Awake and alert. Cranial nerves II through XII intact. Motor and sensory grossly within normal limits. Five out of 5 muscle strength in all muscle groups. Normal speech. Laboratory Laboratory Tests Test 01/01/17 11:40 01/01/17 14:35 White Blood Count 8.5 Red Blood Count 4.65 Hemoglobin 14.2 Hematocrit 41.1 Mean Corpuscular Volume 88.4 Mean Corpuscular Hemoglobin 30.5 Mean Corpuscular Hemoglobin Concent 34.4 Red Cell Distribution Width 18.1 Platelet Count 133 Mean Platelet Volume 7.4 Neutrophils (%) (Auto) 84.0 Lymphocytes (%) (Auto) 7.3 Monocytes (%) (Auto) 7.7 Eosinophils (%) (Auto) 0.6 Basophils (%) (Auto) 0.4 Neutrophils # (Auto) 7.1 Lymphocytes # (Auto) 0.6 Monocytes # (Auto) 0.7 Eosinophils # (Auto) 0.0 Basophils # (Auto) 0.0 CBC Comment DIFF FINAL Differential Comment Prothrombin Time 21.4 Prothromb Time International Ratio 1.9 Blood Urea Nitrogen 25 Creatinine 1.21 Random Glucose 94 Total Protein 6.6 Albumin 2.9 Calcium Level 8.2 Alkaline Phosphatase 58 Aspartate Amino Transf (AST/SGOT) 36 Alanine Aminotransferase (ALT/SGPT) 17 Total Bilirubin 1.2 Sodium Level 130 Potassium Level 4.8 Chloride Level 98 Carbon Dioxide Level 24.6 Anion Gap 7 Estimat Glomerular Filtration Rate 43 Lactic Acid Level 1.4 Urine Color YELLOW Urine Turbidity CLEAR Urine pH 6.5 Urine Specific [place] 1.010 Urine Protein NEG Urine Glucose (UA) NEG Urine Ketones NEG Urine Occult Blood NEG Urine Nitrite NEG Urine Bilirubin NEG Urine Urobilinogen LESS THAN 2.0 Urine Leukocyte Esterase NEG Urine RBC LESS THAN 1 Urine WBC LESS THAN 1 Microscopic Urinalysis Comment CULT NOT INDICATED Result Diagram: 01/01/17 1140 01/01/17 1140 Imaging Last Impressions Chest X-Ray 01/01/17 1035 Signed Impressions: Service Date/Time: Sunday, January 01, 2017 10:48 - CONCLUSION: 1. Cardiomegaly. 2. No acute focal pulmonary infiltrate or pulmonary vascular congestion. Nura Corona MD Abdomen X-Ray 01/01/17 0000 Signed Impressions: Service Date/Time: Sunday, January 01, 2017 10:50 - CONCLUSION: 1. No evidence of bowel obstruction, ileus or perforation. 2. Degenerative changes and scoliosis of the thoracolumbar spine. MD Cindi Velazquez VTE Risk Assessment Cindi VTE Risk Assessment: Mod/High Risk (score >= 2) Caprini Risk Assessment Model Point Value = 1 Point Value = 2 Point Value = 3 Point Value = 5 Age 41-60 Minor surgery BMI > 25 kg/m2 Swollen legs Varicose veins or History of unexplained or recurrent spontaneous Oral contraceptives or hormone replacement Sepsis (< 1 month) Serious lung disease, including pneumonia (< 1 month) Abnormal pulmonary function Acute myocardial infarction Congestive heart failure (< 1 month) History of inflammatory bowel disease Medical patient at bed rest Age 61-74 Arthroscopic surgery Major open surgery (> 45 min) Laparoscopic surgery (> 45 min) Malignancy Confined to bed (> 72 hours) Immobilizing plaster cast Central venous access Age >= 75 History of VTE Family history of VTE Factor V Leiden Prothrombin [id number] Lupus anticoagulant Anticardiolipin antibodies Elevated serum homocysteine Heparin-induced thrombocytopenia Other congenital or acquired thrombophilia Stroke (< 1 month) Elective arthroplasty Hip, pelvis, or leg fracture Acute spinal cord injury (< 1 month) Prophylaxis Regimen Total Risk Factor Score Risk Level Prophylaxis Regimen 0-1 Low Early ambulation 2 Moderate Order ONE of the following: *Sequential Compression Device (SCD) *Heparin 5000 units SQ BID 3-4 Higher Order ONE of the following medications: *Heparin 5000 units SQ TID *Enoxaparin/Lovenox 40 mg SQ daily (WT < 150 kg, CrCl > 30 mL/min) *Enoxaparin/Lovenox 30 mg SQ daily (WT < 150 kg, CrCl > 10-29 mL/min) *Enoxaparin/Lovenox 30 mg SQ BID (WT < 150 kg, CrCl > 30 mL/min) AND/OR *Sequential Compression Device (SCD) 5 or more Highest Order ONE of the following medications: *Heparin 5000 units SQ TID (Preferred with Epidurals) *Enoxaparin/Lovenox 40 mg SQ daily (WT < 150 kg, CrCl > 30 mL/min) *Enoxaparin/Lovenox 30 mg SQ daily (WT < 150 kg, CrCl > 10-29 mL/min) *Enoxaparin/Lovenox 30 mg SQ BID (WT < 150 kg, CrCl > 30 mL/min) AND *Sequential Compression Device (SCD) Assessment and Plan Assessment and Plan This is an 81-year-old female with a past medical history of HTN, A. fib on Coumadin, AAA, Anxiety, Depression, AVR s/p Bovine Valve, Aortic root Aneurysm Repair, h/o TIA, CHF (Echo 11/14/15 w/ EF 50%), COPD and Sleep Apnea, adrenal insufficiency who presented with generalized weakness Generalized weakness -Most likely medication induced by hydrocodone since generalized weakness seems to be more due to sedation. Will discontinue hydrocodone and sedating medication. -Labs reviewed and relatively stable. -Will consult PT/OT. Rash on left neck and anterior posterior shoulder. -Most likely secondary to heating pad causing burning rash -Consult wound care. Mild renal insufficiency -Creatinine at 1.21 prior 1.08. -Most likely secondary to mild dehydration since PE when is elevated and patient has been very sedated. -Will give IV fluids and monitor creatinine. -Strict ins and outs. -Avoid nephrotoxins. Hyponatremia -Sodium 130. -Most likely secondary to dehydration. Will hydrate. Monitor clinically and sodium levels. HTN, A. fib on Coumadin, AAA, Anxiety, Depression, AVR s/p Bovine Valve, Aortic root Aneurysm Repair, h/o TIA, CHF (Echo 11/14/15 w/ EF 50%), COPD and Sleep Apnea, adrenal insufficiency -Resume home medication. - will bring CPAP machine in and it is set at 8. DVT prophylaxis -Patient on Coumadin INR is 1.9 Discussed Condition With Patient and her Flavia Sy MD Jan 01, 2017 17:10
[2017-01-01] MEDS ORDERED: WARFARIN SOD 3 MG TAB PO ONE (17:30)
[2017-01-01] MEDS ORDERED: FURO1TAB62 PO (17:37)
[2017-01-01] MEDS ORDERED: VITA1000 PO (17:39)
[2017-01-01] MEDS ORDERED: ONDANSETRON ODT 4 MG TAB SL PRN (20:00)
[2017-01-01] MEDS ORDERED: WARFARIN SOD 3 MG TAB PO SCH (20:00)
[2017-01-01] MEDS: SODIUM CHLORIDE 0.9% FLUSH 10 ML FLUSH IV FLUSH SCH (21:00)
[2017-01-01] MEDS ORDERED: PANTOPRAZOLE SOD 20 MG DELAYED RELEASE TAB PO SCH (21:00)
[2017-01-01] MEDS ORDERED: ATORVASTATIN 20 MG TAB PO SCH (21:00)
[2017-01-01] MEDS: PANTOPRAZOLE SOD 20 MG DELAYED RELEASE TAB PO SCH (23:15)
[2017-01-01] MEDS: CARVEDILOL 12.5 MG TAB PO SCH (23:15)
[2017-01-01] MEDS: HYDROCORTISONE 10 MG TAB PO SCH (23:16)
[2017-01-01] MEDS: CITALOPRAM HYDROBROMIDE 20 MG TAB PO SCH (23:16)
[2017-01-02 00:20] VITALS: BP 141/71; PULSE 65; RESP 18; TEMP 97.5; O2SAT 96
[2017-01-02 05:35] LABS: AUTOMATED NEUTROPHIL # 4.1 TH/MM3 (1.8-7.7); BASOPHIL % 0.4 % (0.0-2.0); EOSINOPHIL % 0.2 % (0.0-4.0); HEMATOCRIT 35.6 % (35.0-46.0); HEMO FLAGS DIFF FINAL; LYMPH % 11.5 % (9.0-44.0); LYMPHOCYTE # 0.6 TH/MM3 (1.0-4.8); MEAN CELL VOLUME 87.4 FL (80.0-100.0); MEAN CORPUSCULAR HEMOGLOBIN 29.5 PG (27.0-34.0); MEAN CORPUSCULAR HGB CONC 33.7 % (32.0-36.0); MONO % 8.3 % (0.0-8.0); NEUT % 79.6 % (16.0-70.0); PLATELET COUNT 133 TH/MM3 (150-450); RED BLOOD COUNT 4.08 MIL/MM3 (4.00-5.30); RED CELL DISTRIBUTION WIDTH 17.8 % (11.6-17.2); WHITE BLOOD COUNT 5.1 TH/MM3 (4.0-11.0)
[2017-01-02 05:50] LABS: INTERNATIONAL NORMALIZED RATIO 2.2 RATIO; PROTHROMBIN TIME - PATIENT 25.4 SEC (9.8-11.6)
[2017-01-02 06:45] LABS: BICARBONATE 22.9 MEQ/L (21.0-32.0); POTASSIUM 4.4 MEQ/L (3.5-5.1)
[2017-01-02 08:27] VITALS: BP 111/70; PULSE 70; RESP 20; TEMP 97.8; O2SAT 96
[2017-01-02] MEDS ORDERED: MAGNESIUM OXIDE 400 MG TAB PO SCH (09:00)
[2017-01-02] MEDS ORDERED: CHOLECALCIFEROL (VIT D3) 1000 UNIT TAB PO SCH (09:00)
[2017-01-02] MEDS ORDERED: FLAXSEED PO SCH (09:00)
[2017-01-02] MEDS ORDERED: CARVEDILOL 12.5 MG TAB PO SCH (09:00)
[2017-01-02] MEDS ORDERED: CYANOCOBALAMIN 1,000 MCG TAB PO SCH (09:00)
[2017-01-02] MEDS ORDERED: NON-FORMULARY DRUG (Coenzyme Q10 (Ubidecarenone) (Co Q 10) 100 MG) PO SCH (09:00)
[2017-01-02] MEDS ORDERED: LACTOBACILLUS ACIDOPHILUS TAB PO SCH (09:00)
[2017-01-02] MEDS ORDERED: METHYLPHENIDATE HCL 10 MG TAB PO SCH (09:00)
[2017-01-02] MEDS: CARVEDILOL 12.5 MG TAB PO SCH (09:11)
[2017-01-02] MEDS: HYDROCORTISONE 10 MG TAB PO SCH (09:13)
[2017-01-02] MEDS: PANTOPRAZOLE SOD 20 MG DELAYED RELEASE TAB PO SCH (09:15)
[2017-01-02] MEDS: CITALOPRAM HYDROBROMIDE 20 MG TAB PO SCH (09:15)
[2017-01-02] MEDS: SODIUM CHLORIDE 0.9% FLUSH 10 ML FLUSH IV FLUSH SCH (09:17)
--- NOTE | 2017-01-02 09:38 | HHI.PR ---
Subjective Remarks She is more alert and awake today. Alert and oriented by name, date of , year and month, classroom monitor. Denies chest pain or shortness of breath. Satting well on room air. Shoulder pain is fairly controlled by pain medications. No nausea, vomiting, diarrhea or constipation. He is eating breakfast without problems. Objective Vitals Vital Signs Date Time Temp Pulse Resp B/P (MAP) Pulse Ox O2 Delivery O2 Flow Rate FiO2 01/02/17 08:27 97.8 70 20 111/70 (84) 96 01/02/17 00:20 97.5 65 18 141/71 (94) 96 01/01/17 22:30 98.0 62 18 126/70 (88) 98 01/01/17 22:10 98 HOME CPAP 21 01/01/17 20:00 98 Nasal Cannula 1.00 01/01/17 17:16 97.6 68 20 131/73 (92) 91 01/01/17 16:35 64 18 141/69 (93) 98 Nasal Cannula 2.00 01/01/17 14:58 68 18 111/68 (82) 99 Nasal Cannula 2.00 01/01/17 12:18 68 18 126/76 (93) 95 Room Air 01/01/17 12:18 68 18 126/76 (93) 95 Nasal Cannula 2.00 01/01/17 11:10 78 18 89/56 (67) 98 I/O 01/01/17 01/01/17 01/01/17 01/02/17 01/02/17 01/02/17 07:00 15:00 23:00 07:00 15:00 23:00 Intake Total 1000 ml 300 ml 240 ml Balance 1000 ml 300 ml 240 ml Intake Oral 300 ml 240 ml IV Total 1000 ml Result Diagram: 01/02/17 0457 01/02/17 0457 Imaging Last Impressions Chest X-Ray 01/01/17 1035 Signed Impressions: Service Date/Time: Sunday, January 01, 2017 10:48 - CONCLUSION: 1. Cardiomegaly. 2. No acute focal pulmonary infiltrate or pulmonary vascular congestion. Nura Corona MD Abdomen X-Ray 01/01/17 0000 Signed Impressions: Service Date/Time: Sunday, January 01, 2017 10:50 - CONCLUSION: 1. No evidence of bowel obstruction, ileus or perforation. 2. Degenerative changes and scoliosis of the thoracolumbar spine. Nura Corona MD Objective Remarks GENERAL: This is a well-nourished, well-developed patient in no acute distress, more awake and alert CARDIOVASCULAR: Regular rate and rhythm without murmurs, gallops, or rubs. RESPIRATORY: Clear to auscultation. Breath sounds equal bilaterally. No wheezes , rales, or rhonchi. GASTROINTESTINAL: Abdomen soft, non-tender, nondistended. No hepato-splenomegaly , or palpable masses. No guarding. MUSCULOSKELETAL: Pain on palpation on left shoulder. Extremities without clubbing, cyanosis, or edema. No joint tenderness, effusion, or edema noted. No calf tenderness. Negative Homans sign bilaterally. NEUROLOGICAL: Awake and alert. Cranial nerves II through XII intact. Motor and sensory grossly within normal limits. Five out of 5 muscle strength in all muscle groups. Normal speech. A/P Assessment and Plan This is an 81-year-old female with a past medical history of HTN, A. fib on Coumadin, AAA, Anxiety, Depression, AVR s/p Bovine Valve, Aortic root Aneurysm Repair, h/o TIA, CHF (Echo 11/14/15 w/ EF 50%), COPD and Sleep Apnea, adrenal insufficiency who presented with generalized weakness Generalized weakness Most likely medication induced by hydrocodone since generalized weakness seems to be more due to sedation. Will discontinue hydrocodone and sedating medication. Labs reviewed and relatively stable. Will consult PT/OT. Rash on left neck and anterior posterior shoulder. Most likely secondary to heating pad causing burning rash Consult wound care. Mild renal insufficiency Creatinine at 1.21 prior 1.08. Most likely secondary to mild dehydration since PE when is elevated and patient has been very sedated. Will give IV fluids and monitor creatinine. Strict ins and outs. Avoid nephrotoxins. Hyponatremia Sodium 130. Most likely secondary to dehydration. Will hydrate. Monitor clinically and sodium levels. HTN, A. fib on Coumadin, AAA, Anxiety, Depression, AVR s/p Bovine Valve, Aortic root Aneurysm Repair, h/o TIA, CHF (Echo 11/14/15 w/ EF 50%), COPD and Sleep Apnea, adrenal insufficiency Resume home medication. to bring CPAP machine in and it is set at 8. Hypotension Resolved after giving IV fluids. Most likely secondary to dehydration. Continue with IV hydration and monitor blood pressure. DVT prophylaxis -Patient on Coumadin INR is 1.9 Discussed Condition With Patient and nurse Adriana Lawton MD Jan 02, 2017 09:38
[2017-01-02] MEDS ORDERED: ACETAMINOPHEN 500 MG CPLT PO ONE (11:30)
--- NOTE | 2017-01-02 11:44 | HHI.DCPOC ---
Discharge Care Plan Goals to Promote Your Health * To prevent worsening of your condition and complications * To maintain your health at the optimal level Directions to Meet Your Goals Take your medications as prescribed Follow your dietary instruction Follow activity as directed Keep your appointments as scheduled Take your immunizations and boosters as scheduled If your symptoms worsen call your PCP, if no PCP go to Urgent Care Center or Emergency Room Smoking is Dangerous to Your Health. Avoid second hand smoke Call the 24-hour hour crisis hotline for domestic abuse at Adriana Lawton MD Jan 02, 2017 11:44
[2017-01-02 12:20] VITALS: BP 120/72; PULSE 72; RESP 20; O2SAT 96
[2017-01-02] MEDS ORDERED: WARFARIN SOD 4 MG TAB PO SCH (16:00)
[2017-01-02] MEDS ORDERED: HYDROCORTISONE 10 MG TAB PO SCH (16:00)
--- NOTE | 2017-01-02 20:56 | EKG ---
Date Performed: 01/01/2017 Time Performed: 11:57:16 PTAGE: 81 years EKG: ELECTRONIC VENTRICULAR PACEMAKER ABNORMAL RHYTHM ECG NO PREVIOUS TRACING DOCTOR: Torito Romero Interpretating Date/Time 01/02/2017 20:48:43
[2017-01-03] MEDS ORDERED: FLUDROCORTISONE ACETATE 0.1 MG TAB PO SCH (20:00)
== END 2017-01-02 14:33 | disposition home or self-care (01) ==
LOC: NEPC 10:14 → NEDA 15:50 → NEPGCP 17:01
PROVIDERS: ADMIT Hospitalist; ATTEND Hospitalist
DX: R53.1 Weakness (principal); Z79.01 Long term (current) use of anticoagulants; D64.9 Anemia, unspecified; I48.91 Unspecified atrial fibrillation; F32.9 Major depressive disorder, single episode, unspecified; I11.0 Hypertensive heart disease with heart failure; J44.9 Chronic obstructive pulmonary disease, unspecified; I71.4 Abdominal aortic aneurysm, without rupture; Z95.2 Presence of prosthetic heart valve; Z86.73 Personal history of transient ischemic attack (TIA), and cerebral infarction without residual deficits; E87.1 Hypo-osmolality and hyponatremia; I50.9 Heart failure, unspecified; G47.30 Sleep apnea, unspecified; F41.9 Anxiety disorder, unspecified; Z79.899 Other long term (current) drug therapy; Z95.0 Presence of cardiac pacemaker; R21 Rash and other nonspecific skin eruption; N28.9 Disorder of kidney and ureter, unspecified; E86.0 Dehydration; I95.9 Hypotension, unspecified
CPT/HCPCS: 71010; 74020; 80048; 80053; 81001; 83605; 85025; 85610; 93005; 96361; 96374; 97162; 99285; G0378; G8987; G8988; J1720; J7030

== ENCOUNTER 2017-01-06 01:22 | Emergency (ER) | payer MEDICARE ==
[~2017-01-06] VITALS: Ht 160 cm; Wt 65.0 kg
[~2017-01-06 01:22] MED LIST changes: -GENTGEL EACH EYE; -OMEP20TA PO; +OMEP20TA93 PO; -REFR0.5D4 EACH EYE; +VITA1000 PO; -VITASPR PO
[2017-01-06 01:24] VITALS: BP 142/80; PULSE 78; RESP 16; TEMP 97.8; O2SAT 94
[2017-01-06] MEDS ORDERED: ACETAMINOPHEN 500 MG CPLT PO ONE (02:15)
--- NOTE | 2017-01-06 03:10 | RADRPT ---
EXAM DATE/TIME: 01/06/2017 02:47 [place] COMPARISON: CHEST SINGLE AP, January 01, 2017, 10:48. INDICATIONS : Right flank pain from a fall. MEDICAL HISTORY : Aneurysm, abdominal. Cardiovascular disease. Hypertension. COPD SURGICAL HISTORY : Abdominal aortic aneurysm repair. Appendectomy. Hysterectomy. Pacemaker ENCOUNTER: Initial ACUITY: 1 day PAIN SCORE: 6/10 LOCATION: Right flank FINDINGS: Pacemaker device is noted with control pack over the left chest. No definite rib fracture identified. No hemothorax or pneumothorax. Minimal stable parenchymal opacity in the left lung base aerated card iac contour is grossly unchanged. Prosthetic heart valve noted. CONCLUSION: No acute injury Tru Calhoun MD on January 06, 2017 at 3:07 Board Certified Radiologist. This report was verified electronically.
--- NOTE | 2017-01-06 03:13 | PD ---
HPI Chief Complaint: Burn Time Seen by Provider: 02:03 Travel History International Travel<30 days: No Contact w/Intl Traveler<30days: No Traveled to known affect area: No History of Present Illness HPI 81 year-old female presents to the emergency department private transportation the care of her for rash to the upper back and neck area. According to the patient and the she presents at this time because of intermittent stabbing pain in location. Patient states she has used a heating pad because she thought she had strained a muscle. states she fell asleep while using the heating pad and then subsequently was noted to have some redness and some blistering. Patient has not followed up with her primary care provider regarding her symptoms and while she was recently in the hospital she states her area of redness and rash was not addressed. Patient states she presents at this time because intermittently she has a stinging-type discomfort. Patient denies other concerns or complaints. brings up however that earlier in the day she had a near fall and bruised her right chest wall and her buttock and would like to have this evaluated. Patient states she has no pain in these areas but has noted some mild bruising. Patient is on Coumadin for history of TIA. Patient did not hit her head did not have loss of consciousness did not injure her neck does not have neck pain did not injure her upper back or lower back denies chest pain and denies rib pain or shortness of breath patient also denies abdominal pain or flank pain. Patient does note some soreness to the buttock but states she has no pelvic pain and has been ambulatory since the event. Patient does not feel like she needs to be evaluated but has been is insistent. Patient rates her overall discomfort 9/10 in intensity in the distribution of her rash. Patient denies any upper extremity or lower extremity numbness tingling or weakness. PFSH Past Medical History Narrative Medical Coumadin therapy TIA abdominal aortic aneurysm repair CAD aortic valve replacement; no tobacco use no alcohol use: Nursing notes reviewed Hx Anticoagulant Therapy: Yes (COUMADIN) AAA: Yes (ASCENDING AORTIC ANEURSYM) Anemia: Yes Arthritis: Yes Asthma: No Atrial Fibrillation: Yes Autoimmune Disease: No Blood Disorders: No Anxiety: No Depression: No Heart Rhythm Problems: No Cancer: No Cardiac Catheterization: Yes (AVR; AORTIC ROOT ANEURYSM REPAIR) Cardiovascular Problems: Yes High Cholesterol: No Chemotherapy: No Chest Pain: Yes Congestive Heart Failure: No COPD: No Cerebrovascular Accident: Yes (POSSIBLE PER ) Coronary Artery Disease: Yes Diabetes: No Diminished Hearing: Yes Endocrine: No Gastrointestinal Disorders: Yes (HEMHORROIDS) GERD: Yes Glaucoma: No Genitourinary: No Headaches: Yes Hepatitis: No Hiatal Hernia: No Hypertension: Yes Immune Disorder: No Implanted Vascular Access Dvce: Yes Kidney Stones: Yes Medical other: Yes (arthritis) Musculoskeletal: Yes (weak and tired) Neurologic: Yes (burn on left shoulder, causes neuropathy pain) Psychiatric: No Reproductive: No Respiratory: Yes (uses cpap at home) Immunizations Current: Yes Migraines: Yes Myocardial Infarction: No Radiation Therapy: No Renal Failure: Yes (ARF, STENT) Seizures: No Sleep Apnea: No Thyroid Disease: No Tetanus Vaccination: Unknown Influenza Vaccination: Yes PNEUMOCCOCAL Vaccine (Year): 2010 ?: Not Menopausal: Yes : 2 Para: 2 Ovarian Cysts: Yes Past Surgical History Abdominal Aneurysm Repair: Yes (ASCENDING AORTA REPAIR 2005) Abdominal Surgery: Yes AICD: Yes Appendectomy: Yes Arteriovenous Shunt: No Body Medical Devices: AORTIC VALVE REPLACEMENT, PACEMAKER Cardiac Surgery: Yes (aortic valve, pacemaker placement) Cholecystectomy: Yes Coronary Artery Bypass Graft: Yes Ear Surgery: No Endocrine Surgery: Yes (SHASHI ADRENALS REMOVED-OCTOBER 01, 2013) Eye Surgery: Yes (CATARACT SX BILATERAL) Genitourinary Surgery: No Gynecologic Surgery: Yes Hysterectomy: Yes Insulin Pump: No Joint Replacement: Yes (R HIP) Neurologic Surgery: Yes (brain for tumor) Oral Surgery: No Pacemaker: Yes Thoracic Surgery: Yes (2005) Valve Replacement: Yes (AORTIC VALVE REPLACEMENT ) Other Surgery: Yes (CERVICAL FUCSION, CHOLESTECTOMY, APPENDIX, HYSTERECTOMY, ANEURYSM REPLAC. .) Social History Alcohol Use: No Tobacco Use: No Substance Use: No Allergies-Medications (Allergen,Severity, Reaction): Coded Allergies: Horse/Equine Containing Products (Verified Allergy, Severe, PATIENT NOT SURE, 01/01/17) azithromycin (Verified Allergy, Severe, 01/01/17) ON DIGOXIN ciprofloxacin (Verified Allergy, Severe, 01/01/17) due to taking coumadin and digoxin clarithromycin (Verified Allergy, Severe, 01/01/17) ON DIGOXIN doxycycline (Verified Allergy, Severe, 01/01/17) due to being on coumadin and digoxin metronidazole (Verified Allergy, Severe, 01/01/17) because of being on coumadin and digoxin minocycline (Verified Allergy, Severe, 01/01/17) due to being on coumadin and digoxin sulfamethoxazole (Verified Allergy, Severe, 01/01/17) due to coumadin intake and digoxin tigecycline (Verified Allergy, Severe, 01/01/17) due to being on coumadin and digoxin trimethoprim (Verified Allergy, Severe, 01/01/17) due to coumadin intake and digoxin ampicillin (Verified Allergy, Unknown, 01/01/17) CAN NOT TAKE D/T COUMADIN fluconazole (Verified Allergy, Unknown, 01/01/17) CAN NOT TAKE D/T COUMADIN MRI PRECAUTION (Verified Adverse Reaction, Severe, NON COMPATIBLE PACEMAKER 11/13/15 LRS, 01/01/17) Uncoded Allergies: no mri (Adverse Reaction, Severe, pacemaker, 11/13/15) pacemaker in place Reported Meds & Prescriptions Reported Meds & Active Scripts Active Medrol Dosepak (Methylprednisolone) 4 Mg Dspk 4 Mg PO DIRECTED Per Pharmacist direction Keflex (Cephalexin) 500 Mg Capsule 500 Mg PO Q6H 7 Days Zofran Odt (Ondansetron Odt) 4 Mg Tab 4 Mg SL Q6HR PRN Lortab (Hydrocodone-Acetaminophen) 5-325 Mg Tab 1 Tab PO Q6H PRN Ramipril 10 Mg Cap 10 Mg PO DAILY Please change your dosing from twice a day to only once a day. Your BP has been low. Reported D 1000 (Cholecalciferol) 1,000 Unit Tab 1,000 Units PO DAILY Coumadin (Warfarin) 4 Mg Tab 4 Mg PO SUMOWEFR Take 1 tablet (4mg) on Tuesday,Tuesday,Tuesday and Tuesday Coumadin (Warfarin) 3 Mg Tab 3 Mg PO TUTHSA Take 1 tablet (3mg) on Tuesday, and Tuesday Hydrocortisone 5 Mg Tab 5 Mg PO AC DINNER Take with dinner to decrease GI upset Hydrocortisone 10 Mg Tab 10 Mg PO BID Take with breakfast and lunch to decrease GI upset Citalopram (Citalopram Hydrobromide) 20 Mg Tab 20 Mg PO DAILY B12 (Cyanocobalamin) 1,000 Mcg Tab 1,000 Mcg PO DAILY Potassium Chloride ER (Potassium Chloride) 10 Meq Cap 10 Meq PO DAILY Ritalin IR (Methylphenidate HCl) 10 Mg Tab 10 Mg PO DAILY Omeprazole 20 Mg Tab 20 Mg PO BID Magnesium Oxide 250 Mg Tab 250 Mg PO DAILY Probiotic (Lactobacillus Acidophilus) 1 Cap Cap 1 Cap PO DAILY Fludrocortisone (Fludrocortisone Acetate) 0.1 Mg Tab 0.05 Mg PO MOWEFR Take 1/2 tablet (0.05mg) on Tuesday,Tuesday and Tuesday Flaxseed Oil [place]-3 (Flaxseed (Linseed)) 1,000 Mg Cap 1 Cap PO DAILY Carvedilol 25 Mg Tab 25 Mg PO BID Atorvastatin (Atorvastatin Calcium) 20 Mg Tab 20 Mg PO HS Co Q 10 (Coenzyme Q10 (Ubidecarenone)) 100 Mg Cap 100 Mg PO DAILY Review of Systems Except as stated in HPI: all other systems reviewed are Neg General / Constitutional: No: Fever, Chills Eyes: No: Visual changes HENT: No: Headaches, Neck Stiffness, Neck Pain Cardiovascular: No: Chest Pain or Discomfort Respiratory: No: Shortness of Breath Gastrointestinal: No: Nausea, Vomiting, Abdominal Pain Genitourinary: No: Dysuria, Flank Pain Musculoskeletal: Positive: Myalgias, Arthralgias, No: Pain Skin: Positive Rash (left upper back and posterior to left neck area), Positive Itching Neurologic: No: Weakness Psychiatric: No: Anxiety Endocrine: No: Heat Intolerance Hematologic/Lymphatic: No: Easy Bruising Physical Exam Narrative GENERAL: Well-developed well-nourished female in no respiratory distress no acute distress; GCS 15 SKIN: Warm and dry. Extensive confluent rash with erythematous base and some interrupted vesicles and scabs without pustules to the left upper back left neck and extending around to the left anterior upper chest wall no weeping or oozing. No urticaria. No petechia no purpura. Small bruise noted to the right lower chest wall and the midaxillary line and to the right buttock cheek. HEAD: Atraumatic. Normocephalic. EYES: Pupils equal and round. No scleral icterus. No injection or drainage. ENT: No nasal bleeding or discharge. Mucous membranes pink and moist. NECK: Trachea midline. No JVD. CARDIOVASCULAR: Regular rate and rhythm. Chest wall: Nontender to palpation no bony tenderness no crepitus. RESPIRATORY: No accessory muscle use. Clear to auscultation. Breath sounds equal bilaterally. GASTROINTESTINAL: Abdomen soft, non-tender, nondistended. Hepatic and splenic margins not palpable. MUSCULOSKELETAL: Extremities without clubbing, cyanosis, or edema. No obvious deformities. NEUROLOGICAL: Awake and alert. No obvious cranial nerve deficits. Motor grossly within normal limits. Five out of 5 muscle strength in the arms and legs. Normal speech. PSYCHIATRIC: Appropriate mood and affect; insight and judgment normal. Data Data Last Documented VS Vital Signs Date Time Temp Pulse Resp B/P (MAP) Pulse Ox O2 Delivery O2 Flow Rate FiO2 01/06/17 04:29 01/06/17 01:24 97.8 78 16 94 Room Air Orders Orders Urinalysis - C+S If Indicated (01/06/17 02:03) Ribs, Uni (W/Exp Cxr-Min 3vw) (01/06/17 ) Prothrombin Time / Inr (Pt) (01/06/17 02:03) Acetaminophen (Tylenol) (01/06/17 02:15) Urine Culture (01/06/17 03:44) Cephalexin (Keflex) (01/06/17 04:30) Ed Discharge Order (01/06/17 04:23) Labs Laboratory Tests Test 01/06/17 02:38 01/06/17 03:44 Prothrombin Time 40.8 SEC Prothromb Time International Ratio 3.5 RATIO Urine Color YELLOW Urine Turbidity CLEAR Urine pH 7.0 Urine Specific [place] 1.018 Urine Protein NEG mg/dL Urine Glucose (UA) NEG mg/dL Urine Ketones NEG mg/dL Urine Occult Blood NEG Urine Nitrite NEG Urine Bilirubin NEG Urine Urobilinogen LESS THAN 2.0 MG/DL Urine Leukocyte Esterase LARGE Urine RBC LESS THAN 1 /hpf Urine WBC 22 /hpf Urine Squamous Epithelial Cells 1 /hpf Urine Transitional Epithelial Cells <1 /hpf Urine Renal Epithelial Cells <1 /hpf Urine Bacteria MOD /hpf Urine Hyaline Casts 1 /lpf Urine Mucus FEW /lpf Microscopic Urinalysis Comment CULTURE INDICATED MDM Medical Decision Making Medical Screen Exam Complete: Yes Emergency Medical Condition: Yes Medical Record Reviewed: Yes Interpretation(s) right ribs xr: INDINGS: Pacemaker device is noted with control pack over the left chest. No definite rib fracture identified. No hemothorax or pneumothorax. Minimal stable parenchymal opacity in the left lung base aerated cardiac contour is grossly unchanged. Prosthetic heart valve noted. CONCLUSION: No acute injury Tru Calhoun MD on January 06, 2017 at 3:07 Board Certified Radiologist. This report was verified electronically. Differential Diagnosis Contact dermatitis, thermal injury, atypical shingles, drug reaction, contusion , rib fracture, coagulopathy, anemia Narrative Course INR, urinalysis, right rib x-rays ordered INR is mildly supra-therapeutic at 3.5,: Urinalysis shows evidence of white blood cells and bacteria cultures indicated patient given first dose of oral antibiotic in the emergency department; hyperventilation revealed no acute bony abnormality no rib fracture no pneumothorax or effusion. Patient given first dose of antibiotic and Tylenol times one dose Patient stable for discharge. Diagnosis Primary Impression: UTI (urinary tract infection) Qualified Codes: N39.0 - Urinary tract infection, site not specified Additional Impressions: Contact dermatitis Qualified Codes: L25.9 - Unspecified contact dermatitis, unspecified cause Multiple contusions Referrals: Primary Care Physician call for appointment Patient Instructions: General Instructions Additional Instructions: Increase fluid hydration Follow-up with your primary care provider Complete course of antibiotic as prescribed Complete Medrol dosepak as tolerated for rash May take Tylenol as needed for fever 100.4F or greater or for minor pain Follow-up with your primary care provider Return to the emergency department for any concerns or change in condition Med/Other Pt SpecificInfo: Prescription(s) given Scripts Methylprednisolone Dosepak (Medrol Dosepak) 4 Mg Dspk 4 MG PO DIRECTED, #1 DSPK 0 Refills Per Pharmacist direction Prov: Kayleigh Wu MD 01/06/17 Cephalexin (Keflex) 500 Mg Capsule 500 MG PO Q6H for Infection for 7 Days, #28 CAP 0 Refills Prov: Kayleigh Wu MD 01/06/17 Disposition: DISCHARGE HOME Condition: Stable Kayleigh Wu MD Jan 06, 2017 03:13
[2017-01-06 03:19] LABS: INTERNATIONAL NORMALIZED RATIO 3.5 RATIO; PROTHROMBIN TIME - PATIENT 40.8 SEC (9.8-11.6)
[2017-01-06 04:16] LABS: BACTERIA, URINE MOD /hpf; BLOOD, URINE NEG (NEG); COMMENT (UR) CULTURE INDICATED; CULTURE IF INDICATED CULTURE INDICATED; GLUCOSE,URINE NEG (NEG); HYALINE CAST, URINE 1 /lpf (RARE); KETONE, URINE NEG (NEG); MUCUS URINE FEW /lpf (OCC); NITRITE,URINE NEG (NEG); RENAL EPITHELIAL CELLS <1 /hpf; SQUAMOUS EPITHELIAL CELL URINE 1 /hpf (0-5); TRANSITIONAL EPI CELLS, URINE <1 /hpf; URINE COLOR YELLOW (YELLW/STRAW)
[2017-01-06] MEDS ORDERED: CEPH-460 PO (04:22)
[2017-01-06] MEDS ORDERED: MEDR4PAK PO (04:22)
[2017-01-06] MEDS ORDERED: CEPHALEXIN MONOHYDRATE 500 MG CAP PO ONE (04:30)
== END 2017-01-06 04:40 | disposition home or self-care (01) ==
LOC: NEPC 01:22
DX: N39.0 Urinary tract infection, site not specified (principal); B95.2 Enterococcus as the cause of diseases classified elsewhere; L25.9 Unspecified contact dermatitis, unspecified cause; I48.91 Unspecified atrial fibrillation; I10 Essential (primary) hypertension; I25.10 Atherosclerotic heart disease of native coronary artery without angina pectoris; Z79.01 Long term (current) use of anticoagulants
CPT/HCPCS: 71101; 81001; 85610; 87086; 99284

== ENCOUNTER 2017-01-12 13:57 | Inpatient (IN) | payer MEDICARE ==
[2017-01-12] VITALS (9 sets, daily range): BP systolic 77–147; BP diastolic 52–83; PULSE 70–82; RESP 16–20; TEMP 98.1–98.5; O2SAT 91–99
[~2017-01-12] VITALS: Ht 160 cm; Wt 66.0 kg
[~2017-01-12 13:57] MED LIST changes: -CLIN300C5 PO; -CYCL10TA PO; -RAMI5CAP PO; -SILV1CRE20 TOPICAL; -TRAM50TA PO
[2017-01-12] MEDS ORDERED: SODIUM CHLOR 0.9% 1000 ML INJ 1,000 ML IV ONE ×2 (14:34→16:45)
[2017-01-12] MEDS ORDERED: SODIUM CHLORIDE 0.9% FLUSH 10 ML FLUSH IVF PRN (14:45)
--- NOTE | 2017-01-12 14:54 | PD ---
HPI . Near syncope Chief Complaint: Syncope/Near-Syncope Time Seen by Provider: 14:25 Travel History International Travel<30 days: No Contact w/Intl Traveler<30days: No Traveled to known affect area: No History of Present Illness HPI This patient is brought in by her with a chief complaint of near- syncope. Onset was at lunch today. Most of the history is obtained from her . This patient is lucid and able speak for herself. reports lightheadedness which started this morning. He further reports frequent falls. She has recently fallen and injured her right forearm. She has subsequently been seen by her primary care provider. She had very little pain, swelling or bruising at that time. Therefore, no further evaluation was done. She has subsequently developed some significant bruising and swelling of the right forearm. The weakness and frequent falls have been an ongoing issue for this patient. She was actually admitted to the hospital 01/01-01/02 for same. Her weakness at that time was attributed to the use of narcotics. Narcotics were discontinued while she was in the hospital and her weakness improved. This patient is normally normotensive. Onset of weakness and dizziness was this morning. It has been constant since that time but was acutely worse while she was sitting up for lunch. There have been no known modifying factors. PFSH Past Medical History Hx Anticoagulant Therapy: Yes (coumadin) AAA: Yes (ASCENDING AORTIC ANEURSYM) Anemia: Yes Arthritis: Yes Asthma: No Atrial Fibrillation: Yes Autoimmune Disease: No Blood Disorders: No Anxiety: No Depression: No Heart Rhythm Problems: No Cancer: No Cardiac Catheterization: Yes (AVR; AORTIC ROOT ANEURYSM REPAIR) Cardiovascular Problems: Yes (aortic valve replacement) High Cholesterol: No Chemotherapy: No Chest Pain: Yes Congestive Heart Failure: No COPD: No Cerebrovascular Accident: Yes (POSSIBLE PER ) Coronary Artery Disease: Yes Diabetes: No Diminished Hearing: Yes Endocrine: No Gastrointestinal Disorders: Yes (HEMHORROIDS) GERD: Yes Glaucoma: No Genitourinary: No Headaches: Yes Hepatitis: No Hiatal Hernia: No Hypertension: Yes Immune Disorder: No Implanted Vascular Access Dvce: Yes Kidney Stones: Yes Medical other: Yes (arthritis) Musculoskeletal: Yes Neurologic: Yes Psychiatric: No Reproductive: No Respiratory: Yes (uses cpap at home) Integumentary: Yes (shingles at this time) Immunizations Current: Yes Migraines: Yes Myocardial Infarction: No Radiation Therapy: No Renal Failure: Yes (ARF, STENT) Seizures: No Sleep Apnea: Yes Thyroid Disease: No Influenza Vaccination: Yes PNEUMOCCOCAL Vaccine (Year): 2010 Menopausal: Yes : 2 Para: 2 Ovarian Cysts: Yes Past Surgical History Abdominal Aneurysm Repair: Yes (ASCENDING AORTA REPAIR 2005) Abdominal Surgery: Yes AICD: Yes Appendectomy: Yes Arteriovenous Shunt: No Body Medical Devices: AORTIC VALVE REPLACEMENT, PACEMAKER Cardiac Surgery: Yes (aortic valve, pacemaker placement) Cholecystectomy: Yes Coronary Artery Bypass Graft: Yes Ear Surgery: No Endocrine Surgery: Yes (SHASHI ADRENALS REMOVED-OCTOBER 01, 2013) Eye Surgery: Yes (CATARACT SX BILATERAL) Genitourinary Surgery: No Gynecologic Surgery: Yes Hysterectomy: Yes Insulin Pump: No Joint Replacement: Yes (R HIP) Neurologic Surgery: Yes (brain for tumor) Oral Surgery: No Pacemaker: Yes Thoracic Surgery: Yes (2005) Valve Replacement: Yes (AORTIC VALVE REPLACEMENT ) Other Surgery: Yes (CERVICAL FUCSION, CHOLESTECTOMY, APPENDIX, HYSTERECTOMY, ANEURYSM REPLAC. .) Social History Alcohol Use: No Tobacco Use: No Substance Use: No Allergies-Medications (Allergen,Severity, Reaction): Coded Allergies: Horse/Equine Containing Products (Verified Allergy, Severe, PATIENT NOT SURE, 01/12/17) azithromycin (Verified Allergy, Severe, 01/12/17) ON DIGOXIN ciprofloxacin (Verified Allergy, Severe, 01/12/17) due to taking coumadin and digoxin clarithromycin (Verified Allergy, Severe, 01/12/17) ON DIGOXIN doxycycline (Verified Allergy, Severe, 01/12/17) due to being on coumadin and digoxin metronidazole (Verified Allergy, Severe, 01/12/17) because of being on coumadin and digoxin minocycline (Verified Allergy, Severe, 01/12/17) due to being on coumadin and digoxin sulfamethoxazole (Verified Allergy, Severe, 01/12/17) due to coumadin intake and digoxin tigecycline (Verified Allergy, Severe, 01/12/17) due to being on coumadin and digoxin trimethoprim (Verified Allergy, Severe, 01/12/17) due to coumadin intake and digoxin ampicillin (Verified Allergy, Unknown, 01/12/17) CAN NOT TAKE D/T COUMADIN fluconazole (Verified Allergy, Unknown, 01/12/17) CAN NOT TAKE D/T COUMADIN MRI PRECAUTION (Verified Adverse Reaction, Severe, NON COMPATIBLE PACEMAKER 11/13/15 LRS, 01/12/17) Uncoded Allergies: no mri (Adverse Reaction, Severe, pacemaker, 11/13/15) pacemaker in place Reported Meds & Prescriptions Reported Meds & Active Scripts Active Lortab (Hydrocodone-Acetaminophen) 5-325 Mg Tab 1 Tab PO Q6H PRN Ramipril 10 Mg Cap 10 Mg PO DAILY Please change your dosing from twice a day to only once a day. Your BP has been low. Reported Silvadene Topical (Silver Sulfadiazine) 1 % Cream 1 Applic TOPICAL DIRECTED Clindamycin (Clindamycin HCl) 300 Mg Cap 300 Mg PO TID Tramadol (Tramadol HCl) 50 Mg Tab 50 Mg PO Q6H PRN D 1000 (Cholecalciferol) 1,000 Unit Tab 1,000 Units PO DAILY Coumadin (Warfarin) 4 Mg Tab 4 Mg PO SUMOWEFR Take 1 tablet (4mg) on Tuesday,Tuesday,Tuesday and Tuesday Coumadin (Warfarin) 3 Mg Tab 3 Mg PO TUTHSA Take 1 tablet (3mg) on Tuesday, and Tuesday Hydrocortisone 5 Mg Tab 5 Mg PO AC DINNER Take with dinner to decrease GI upset Hydrocortisone 10 Mg Tab 10 Mg PO BID Take with breakfast and lunch to decrease GI upset Citalopram (Citalopram Hydrobromide) 20 Mg Tab 20 Mg PO DAILY B12 (Cyanocobalamin) 1,000 Mcg Tab 1,000 Mcg PO DAILY Potassium Chloride ER (Potassium Chloride) 10 Meq Cap 10 Meq PO DAILY Ritalin IR (Methylphenidate HCl) 10 Mg Tab 10 Mg PO DAILY Omeprazole 20 Mg Tab 20 Mg PO BID Magnesium Oxide 250 Mg Tab 250 Mg PO DAILY Probiotic (Lactobacillus Acidophilus) 1 Cap Cap 1 Cap PO DAILY Fludrocortisone (Fludrocortisone Acetate) 0.1 Mg Tab 0.05 Mg PO MOWEFR Take 1/2 tablet (0.05mg) on Tuesday,Tuesday and Tuesday Flaxseed Oil Sutton-3 (Flaxseed (Linseed)) 1,000 Mg Cap 1 Cap PO DAILY Carvedilol 25 Mg Tab 25 Mg PO BID Atorvastatin (Atorvastatin Calcium) 20 Mg Tab 20 Mg PO HS Co Q 10 (Coenzyme Q10 (Ubidecarenone)) 100 Mg Cap 100 Mg PO DAILY Review of Systems Except as stated in HPI: all other systems reviewed are Neg General / Constitutional: No: Fever, Chills Cardiovascular: No: Chest Pain or Discomfort Respiratory: No: Shortness of Breath Gastrointestinal: No: Nausea, Vomiting Musculoskeletal: Positive: Myalgias Skin: Positive Change in Pigmentation, Positive Other (she has the shingles.) Neurologic: Positive: Weakness, Dizziness, No: Focal Abnormalities Physical Exam Narrative Vital Signs Date Time Temp Pulse Resp B/P (MAP) Pulse Ox O2 Delivery O2 Flow Rate FiO2 01/12/17 14:23 80 19 94/60 (71) 94 Room Air 01/12/17 14:10 82 17 94 01/12/17 13:59 98.5 77/52 (60) Room Air GENERAL: Chronically ill-appearing woman with cyanotic lips who does not appear to be in any acute distress. SKIN: warm/dry. HEAD: Normocephalic. Atraumatic. EYES: Pupils equal and round. No scleral icterus. No injection or drainage. ENT: No nasal bleeding or discharge. Mucous membranes pink and moist. NECK: Trachea midline. Full range of motion without pain.. CARDIOVASCULAR: Regular rate and rhythm. Heart sounds are normal. RESPIRATORY: No accessory muscle use. Clear to auscultation. Breath sounds equal bilaterally. GASTROINTESTINAL: Abdomen soft. Nontender. Bowel sounds present. Nondistended. MUSCULOSKELETAL: Significant bruising and swelling of the right forearm. No deformity. Distally neurovascularly intact. NEUROLOGICAL: Awake and alert. No obvious cranial nerve deficits. Motor grossly within normal limits. Normal speech. PSYCHIATRIC: Appropriate mood and affect; insight and judgment normal. Data Data Last Documented VS Vital Signs Date Time Temp Pulse Resp B/P (MAP) Pulse Ox O2 Delivery O2 Flow Rate FiO2 01/12/17 15:58 91 Nasal Cannula 2.00 01/12/17 15:45 74 20 01/12/17 13:59 98.5 Orders Orders Basic Metabolic Panel (Bmp) (01/12/17 14:34) Complete Blood Count With Diff (01/12/17 14:34) Magnesium (Mg) (01/12/17 14:34) Troponin I (01/12/17 14:34) Urinalysis - C+S If Indicated (01/12/17 14:34) Chest, Single Ap (01/12/17 14:34) Ecg Monitoring (01/12/17 14:34) Iv Access Insert/Monitor (01/12/17 14:34) Oximetry (01/12/17 14:34) Oxygen Administration (01/12/17 14:34) Sodium Chloride 0.9% Flush (Ns Flush) (01/12/17 14:45) Sodium Chlor 0.9% 1000 Ml Inj (Ns 1000 M (01/12/17 14:34) Forearm (2vws) (01/12/17 14:34) Vascular Access Team Consult/P PRN (01/12/17 14:41) Vascular Poc Ultrasound (01/12/17 ) Cath For Specimen (01/12/17 16:32) Sodium Chlor 0.9% 1000 Ml Inj (Ns 1000 M (01/12/17 16:45) Creatine Kinase (Cpk) (01/12/17 16:35) Admit Order (Ed Use Only) (01/12/17 ) Vital Signs (Adult) Q4H (01/12/17 17:32) Diet Heart Healthy (01/12/17 Dinner) Activity Bed Rest (01/12/17 17:32) Notify Dr: Other (01/12/17 17:32) Labs Laboratory Tests Test 01/12/17 14:40 01/12/17 16:50 White Blood Count 11.8 TH/MM3 Red Blood Count 4.30 MIL/MM3 Hemoglobin 12.4 GM/DL Hematocrit 38.3 % Mean Corpuscular Volume 89.1 FL Mean Corpuscular Hemoglobin 28.9 PG Mean Corpuscular Hemoglobin Concent 32.4 % Red Cell Distribution Width 17.9 % Platelet Count 291 TH/MM3 Mean Platelet Volume 6.9 FL Neutrophils (%) (Auto) 84.3 % Lymphocytes (%) (Auto) 7.8 % Monocytes (%) (Auto) 7.3 % Eosinophils (%) (Auto) 0.3 % Basophils (%) (Auto) 0.3 % Neutrophils # (Auto) 9.9 TH/MM3 Lymphocytes # (Auto) 0.9 TH/MM3 Monocytes # (Auto) 0.9 TH/MM3 Eosinophils # (Auto) 0.0 TH/MM3 Basophils # (Auto) 0.0 TH/MM3 CBC Comment AUTO DIFF Differential Comment AUTO DIFF CONFIRMED Platelet Estimate NORMAL Platelet Morphology Comment NORMAL Ovalocytes 1+ [place] Cells 2+ Keratocytes OCC Blood Urea Nitrogen 31 MG/DL Creatinine 1.23 MG/DL Random Glucose 137 MG/DL Calcium Level 8.4 MG/DL Magnesium Level 2.4 MG/DL Sodium Level 135 MEQ/L Potassium Level 4.2 MEQ/L Chloride Level 100 MEQ/L Carbon Dioxide Level 25.8 MEQ/L Anion Gap 9 MEQ/L Estimat Glomerular Filtration Rate 42 ML/MIN Troponin I LESS THAN 0.02 NG/ML MDM Medical Decision Making Medical Screen Exam Complete: Yes Emergency Medical Condition: Yes Medical Record Reviewed: Yes (this patient has been seen here frequently in the recent past. She was most recently seen on 01/06 and diagnosed with UTI. She is also due shingles currently. Her past medical history includes HTN, CAD , AF, AVR (bovine), TIA, TYSHAWN, repair of aortic root aneurysm) Interpretation(s) EKG shows a paced rhythm. Differential Diagnosis Differential diagnosis of dizziness includes but is not limited to vertigo, dehydration, acute blood loss, sepsis, ACS Narrative Course This patient presents with weakness and dizziness and near syncope. Her blood pressure is quite low. I have ordered a fluid bolus. IV access is a challenge. The vascular access team has been consulted. Last Impressions [facility] X-Ray 01/12/171433 Signed Impressions: Service Date/Time: Thursday, January 12, 2017 15:08 - CONCLUSION: Negative for fracture. Sina Davis MD FACR Chest X-Ray 01/12/174 Signed Impressions: Service Date/Time: Thursday, January 12, 2017 15:06 - CONCLUSION: Negative for infiltrate or failure. Mild compensated cardiomegaly Sina Davis MD FACR CBC & BMP Diagram 01/12/17 14:40 Calcium Level 8.4 L, Magnesium Level 2.4 SBP is 100 following the first liter of fluids. I have ordered a second liter. Physician Communication Physician Communication Dr. Crandall will admit Diagnosis Primary Impression: Dizziness Additional Impressions: Hypotension Qualified Codes: I95.9 - Hypotension, unspecified Contusion of right forearm, initial encounter Admitting Information Admitting Physician Requests: Admit Condition: Stable Мария Vazquez MD Jan 12, 2017 14:54
[2017-01-12 15:06] LABS: AUTOMATED NEUTROPHIL # 9.9 TH/MM3 (1.8-7.7); BASOPHIL % 0.3 % (0.0-2.0); EOSINOPHIL % 0.3 % (0.0-4.0); HEMATOCRIT 38.3 % (35.0-46.0); LYMPH % 7.8 % (9.0-44.0); LYMPHOCYTE # 0.9 TH/MM3 (1.0-4.8); MEAN CELL VOLUME 89.1 FL (80.0-100.0); MEAN CORPUSCULAR HEMOGLOBIN 28.9 PG (27.0-34.0); MEAN CORPUSCULAR HGB CONC 32.4 % (32.0-36.0); MONO % 7.3 % (0.0-8.0); NEUT % 84.3 % (16.0-70.0); PLATELET COUNT 291 TH/MM3 (150-450); RED CELL DISTRIBUTION WIDTH 17.9 % (11.6-17.2); WHITE BLOOD COUNT 11.8 TH/MM3 (4.0-11.0)
[2017-01-12 15:12] LABS: HEMO FLAGS AUTO DIFF
[2017-01-12 15:27] LABS: ANION GAP 9 MEQ/L (5-15); BICARBONATE 25.8 MEQ/L (21.0-32.0); BLOOD UREA NITROGEN 31 MG/DL (7-18); CHLORIDE 100 MEQ/L (98-107); GLOMERULAR FILTRATION RATE 42 ML/MIN (>89); MAGNESIUM 2.4 MG/DL (1.5-2.5); POTASSIUM 4.2 MEQ/L (3.5-5.1); SODIUM (NA) 135 MEQ/L (136-145)
--- NOTE | 2017-01-12 15:34 | RADRPT ---
EXAM DATE/TIME: 01/12/2017 15:06 [facility] COMPARISON: CHEST SINGLE AP, January 01, 2017, 10:48. INDICATIONS : Evaluate lung status. Syncopal episode today. MEDICAL HISTORY : Cardiovascular disease. Congestive heart failure. Aneurysm, abdominal. CVA. SURGICAL HISTORY : CABG. Appendectomy. Cholecystectomy. Hysterectomy. ENCOUNTER: Initial ACUITY: 1 day PAIN SCORE: 3/10 LOCATION: Bilateral chest FINDINGS: A single view of the chest demonstrates the lungs to be symmetrically aerated without evidence of mas s, infiltrate or effusion. The cardiomediastinal contours are unremarkable. Sternal wires and bypas s are noted. Lead pacer evident. Osseous structures are intact. CONCLUSION: Negative for infiltrate or failure. Mild compensated cardiomegaly Sina Davis MD FACR on January 12, 2017 at 15:32 Board Certified Radiologist. This report was verified electronically.
--- NOTE | 2017-01-12 15:35 | RADRPT ---
EXAM DATE/TIME: 01/12/2017 15:08 [facility] COMPARISON: No previous studies available for comparison. INDICATIONS : Right forearm pain. Syncopal episode today. MEDICAL HISTORY : Cardiovascular disease. Congestive heart failure. Aneurysm, abdominal. CVA. SURGICAL HISTORY : CABG. Appendectomy. Cholecystectomy. Hysterectomy ENCOUNTER: Initial ACUITY: 1 day PAIN SCORE: 6/10 LOCATION: Right wrist. FINDINGS: Two view examination of the right forearm demonstrates no evidence of fracture or dislocation. Bony mineralization is normal. Extensive vascular calcifications are noted. The soft tissue structures a re intact. CONCLUSION: Negative for fracture. Sina Davis MD FACR on January 12, 2017 at 15:33 Board Certified Radiologist. This report was verified electronically.
[2017-01-12] MEDS ORDERED: CLIN300C5 PO (15:47)
[2017-01-12] MEDS ORDERED: TRAM50TA PO ×2 (15:47)
[2017-01-12] MEDS ORDERED: SILV1CRE20 TOPICAL ×2 (15:48)
[2017-01-12 16:07] LABS: PLATELET ESTIMATE SMEAR NORMAL (NORMAL); PLATELET MORPHOLOGY NORMAL (NORMAL); SCAN/DIFF AUTO DIFF CONFIRMED
[2017-01-12 16:10] LABS: KERATOCYTES OCC (NORMAL); OVALOCYTES 1+ (NORMAL)
[2017-01-12 16:12] LABS: BURR CELLS 2+ (NORMAL)
[2017-01-12 17:28] LABS: BLOOD, URINE NEG (NEG); COMMENT (UR) CULT NOT INDICATED; CULTURE IF INDICATED CULT NOT INDICATED; GLUCOSE,URINE NEG (NEG); HYALINE CAST, URINE 3 /lpf (RARE); KETONE, URINE NEG (NEG); NITRITE,URINE NEG (NEG); PH, URINE 5.5 (5.0-8.5); URINE COLOR YELLOW (YELLW/STRAW)
[2017-01-12] MEDS ORDERED: ACETAMINOPHEN 325 MG TAB PO PRN ×2 (17:45)
[2017-01-12] MEDS ORDERED: NALOXONE HCL 0.4 MG/ML AMP IV PUSH PRN (17:45)
[2017-01-12] MEDS ORDERED: MAGNESIUM HYDROXIDE SUSP 30 ML CUP PO PRN (17:45)
[2017-01-12] MEDS ORDERED: SODIUM CHLORIDE 0.9% FLUSH 10 ML FLUSH IV FLUSH PRN (17:45)
[2017-01-12] MEDS ORDERED: ONDANSETRON HCL 4 MG/2 ML VIAL IVP PRN (17:45)
--- NOTE | 2017-01-12 17:52 | HHI.HP ---
[facility] Flaquita Arrieta MD Admission Diagnosis hypotension, right arm contusion Diagnoses: (1) Symptomatic hypotension (2) Near syncope (3) Coagulopathy Chief Complaint: Near syncope and dizziness Travel History International Travel<30 Days: No Contact w/Intl Traveler <30 Da: No Traveled to Known Affected Are: No History of Present Illness 81-year-old female with a history of atrial fibrillation on chronic Coumadin was brought to the ED for evaluation of an acute onset of dizziness which occurred this morning. Patient's states, she almost passed out however did not fell down. While in the ED she was found to have low BP and INR of 5+. She denies any GI bleed or chest pain as well as shortness of breath. 4 days ago, patient fell hitting her right arm in the process causing a contusion Review of Systems Except as stated in HPI: all other systems reviewed are Neg Past Family Social History Past Medical History HTN, A. fib on Coumadin, AAA, Anxiety, Depression, AVR s/p Bovine Valve, Aortic root Aneurysm Repair, h/o TIA, CHF (Echo 11/14/15 w/ EF 50%), COPD and Sleep Apnea, adrenal insufficiency Past Surgical History Aortic Valve Replacement, AICD, AAA Repair, Appendectomy, Bilateral Adrenalectomy, Cataract Surgery, Hysterectomy, Right Hip Replacement, Brain Tumor, Right Ankle Surgery Reported Medications Silvadene Topical (Silver Sulfadiazine) 1 % Cream 1 Applic TOPICAL DIRECTED Clindamycin (Clindamycin HCl) 300 Mg Cap 300 Mg PO TID Tramadol (Tramadol HCl) 50 Mg Tab 50 Mg PO Q6H PRN D 1000 (Cholecalciferol) 1,000 Unit Tab 1,000 Units PO DAILY Coumadin (Warfarin) 4 Mg Tab 4 Mg PO SUMOWEFR Take 1 tablet (4mg) on Tuesday,Tuesday,Tuesday and Tuesday Coumadin (Warfarin) 3 Mg Tab 3 Mg PO TUTHSA Take 1 tablet (3mg) on Tuesday, and Tuesday Hydrocortisone 5 Mg Tab 5 Mg PO AC DINNER Take with dinner to decrease GI upset Hydrocortisone 10 Mg Tab 10 Mg PO BID Take with breakfast and lunch to decrease GI upset Citalopram (Citalopram Hydrobromide) 20 Mg Tab 20 Mg PO DAILY B12 (Cyanocobalamin) 1,000 Mcg Tab 1,000 Mcg PO DAILY Potassium Chloride ER (Potassium Chloride) 10 Meq Cap 10 Meq PO DAILY Ritalin IR (Methylphenidate HCl) 10 Mg Tab 10 Mg PO DAILY Omeprazole 20 Mg Tab 20 Mg PO BID Magnesium Oxide 250 Mg Tab 250 Mg PO DAILY Probiotic (Lactobacillus Acidophilus) 1 Cap Cap 1 Cap PO DAILY Fludrocortisone (Fludrocortisone Acetate) 0.1 Mg Tab 0.05 Mg PO MOWEFR Take 1/2 tablet (0.05mg) on Tuesday,Tuesday and Tuesday Flaxseed Oil [place]-3 (Flaxseed (Linseed)) 1,000 Mg Cap 1 Cap PO DAILY Carvedilol 25 Mg Tab 25 Mg PO BID Atorvastatin (Atorvastatin Calcium) 20 Mg Tab 20 Mg PO HS Co Q 10 (Coenzyme Q10 (Ubidecarenone)) 100 Mg Cap 100 Mg PO DAILY Allergies: Coded Allergies: Horse/Equine Containing Products (Verified Allergy, Severe, PATIENT NOT SURE, 01/12/17) azithromycin (Verified Allergy, Severe, 01/12/17) ON DIGOXIN ciprofloxacin (Verified Allergy, Severe, 01/12/17) due to taking coumadin and digoxin clarithromycin (Verified Allergy, Severe, 01/12/17) ON DIGOXIN doxycycline (Verified Allergy, Severe, 01/12/17) due to being on coumadin and digoxin metronidazole (Verified Allergy, Severe, 01/12/17) because of being on coumadin and digoxin minocycline (Verified Allergy, Severe, 01/12/17) due to being on coumadin and digoxin sulfamethoxazole (Verified Allergy, Severe, 01/12/17) due to coumadin intake and digoxin tigecycline (Verified Allergy, Severe, 01/12/17) due to being on coumadin and digoxin trimethoprim (Verified Allergy, Severe, 01/12/17) due to coumadin intake and digoxin ampicillin (Verified Allergy, Unknown, 01/12/17) CAN NOT TAKE D/T COUMADIN fluconazole (Verified Allergy, Unknown, 01/12/17) CAN NOT TAKE D/T COUMADIN MRI PRECAUTION (Verified Adverse Reaction, Severe, NON COMPATIBLE PACEMAKER 11/13/15 LRS, 01/12/17) Uncoded Allergies: no mri (Adverse Reaction, Severe, pacemaker, 11/13/15) pacemaker in place Family History Due to patient advanced age, family history not relevant Social History Alcohol Use: No Tobacco Use: No Substance Use: No Physical Exam Vital Signs Vital Signs Date Time Temp Pulse Resp B/P (MAP) Pulse Ox O2 Delivery O2 Flow Rate FiO2 01/12/17 15:58 91 Nasal Cannula 2.00 01/12/17 15:58 91 Nasal Cannula 2.00 01/12/17 15:45 74 20 100/55 (70) 91 Room Air 01/12/17 14:23 80 19 94/60 (71) 94 Room Air 01/12/17 14:20 20 93 Room Air 01/12/17 14:10 82 17 94 01/12/17 13:59 98.5 77/52 (60) Room Air Physical Exam GENERAL: This is a well-nourished, well-developed patient, in no apparent distress. SKIN: No rashes, +ecchymoses to right arm HEAD: Atraumatic. Normocephalic. No temporal or scalp tenderness. EYES: Pupils equal round and reactive. Extraocular motions intact. No scleral icterus. No injection or drainage. ENT: Nose without bleeding, purulent drainage or septal hematoma. Throat without erythema, tonsillar hypertrophy or exudate. Uvula midline. Airway patent. NECK: Trachea midline. No JVD or lymphadenopathy. Supple, nontender, no meningeal signs. CARDIOVASCULAR: Regular rate and rhythm without murmurs, gallops, or rubs. RESPIRATORY: Clear to auscultation. Breath sounds equal bilaterally. No wheezes , rales, or rhonchi. GASTROINTESTINAL: Abdomen soft, non-tender, nondistended. No hepato-splenomegaly , or palpable masses. No guarding. MUSCULOSKELETAL: Extremities without clubbing, cyanosis, or edema. No joint tenderness, effusion, or edema noted. No calf tenderness. Negative Homans sign bilaterally. NEUROLOGICAL: Awake and alert. Cranial nerves II through XII intact. Motor and sensory grossly within normal limits. Five out of 5 muscle strength in all muscle groups. Normal speech. Laboratory Laboratory Tests Test 01/12/17 14:40 01/12/17 16:50 White Blood Count 11.8 Red Blood Count 4.30 Hemoglobin 12.4 Hematocrit 38.3 Mean Corpuscular Volume 89.1 Mean Corpuscular Hemoglobin 28.9 Mean Corpuscular Hemoglobin Concent 32.4 Red Cell Distribution Width 17.9 Platelet Count 291 Mean Platelet Volume 6.9 Neutrophils (%) (Auto) 84.3 Lymphocytes (%) (Auto) 7.8 Monocytes (%) (Auto) 7.3 Eosinophils (%) (Auto) 0.3 Basophils (%) (Auto) 0.3 Neutrophils # (Auto) 9.9 Lymphocytes # (Auto) 0.9 Monocytes # (Auto) 0.9 Eosinophils # (Auto) 0.0 Basophils # (Auto) 0.0 CBC Comment AUTO DIFF Differential Comment AUTO DIFF CONFIRMED Platelet Estimate NORMAL Platelet Morphology Comment NORMAL Ovalocytes 1+ Kimber Cells 2+ Keratocytes OCC Blood Urea Nitrogen 31 Creatinine 1.23 Random Glucose 137 Calcium Level 8.4 Magnesium Level 2.4 Sodium Level 135 Potassium Level 4.2 Chloride Level 100 Carbon Dioxide Level 25.8 Anion Gap 9 Estimat Glomerular Filtration Rate 42 Troponin I LESS THAN 0.02 Urine Color YELLOW Urine Turbidity CLEAR Urine pH 5.5 Urine Specific [place] 1.016 Urine Protein NEG Urine Glucose (UA) NEG Urine Ketones NEG Urine Occult Blood NEG Urine Nitrite NEG Urine Bilirubin NEG Urine Urobilinogen LESS THAN 2.0 Urine Leukocyte Esterase NEG Urine WBC 1 Urine Hyaline Casts 3 Microscopic Urinalysis Comment CULT NOT INDICATED Result Diagram: 01/12/17 1440 01/12/17 1440 Imaging Last Impressions Radius/Ulna X-Ray 01/12/171433 Signed Impressions: Service Date/Time: Thursday, January 12, 2017 15:08 - CONCLUSION: Negative for fracture. Sina Davis MD FACR Chest X-Ray 01/12/171433 Signed Impressions: Service Date/Time: Thursday, January 12, 2017 15:06 - CONCLUSION: Negative for infiltrate or failure. Mild compensated cardiomegaly Sina Davis MD FACR Caprini VTE Risk Assessment Caprini VTE Risk Assessment: Mod/High Risk (score >= 2) Caprini Risk Assessment Model Point Value = 1 Point Value = 2 Point Value = 3 Point Value = 5 Age 41-60 Minor surgery BMI > 25 kg/m2 Swollen legs Varicose veins or History of unexplained or recurrent spontaneous Oral contraceptives or hormone replacement Sepsis (< 1 month) Serious lung disease, including pneumonia (< 1 month) Abnormal pulmonary function Acute myocardial infarction Congestive heart failure (< 1 month) History of inflammatory bowel disease Medical patient at bed rest Age 61-74 Arthroscopic surgery Major open surgery (> 45 min) Laparoscopic surgery (> 45 min) Malignancy Confined to bed (> 72 hours) Immobilizing plaster cast Central venous access Age >= 75 History of VTE Family history of VTE Factor V Leiden Prothrombin [id number] Lupus anticoagulant Anticardiolipin antibodies Elevated serum homocysteine Heparin-induced thrombocytopenia Other congenital or acquired thrombophilia Stroke (< 1 month) Elective arthroplasty Hip, pelvis, or leg fracture Acute spinal cord injury (< 1 month) Prophylaxis Regimen Total Risk Factor Score Risk Level Prophylaxis Regimen 0-1 Low Early ambulation 2 Moderate Order ONE of the following: *Sequential Compression Device (SCD) *Heparin 5000 units SQ BID 3-4 Higher Order ONE of the following medications: *Heparin 5000 units SQ TID *Enoxaparin/Lovenox 40 mg SQ daily (WT < 150 kg, CrCl > 30 mL/min) *Enoxaparin/Lovenox 30 mg SQ daily (WT < 150 kg, CrCl > 10-29 mL/min) *Enoxaparin/Lovenox 30 mg SQ BID (WT < 150 kg, CrCl > 30 mL/min) AND/OR *Sequential Compression Device (SCD) 5 or more Highest Order ONE of the following medications: *Heparin 5000 units SQ TID (Preferred with Epidurals) *Enoxaparin/Lovenox 40 mg SQ daily (WT < 150 kg, CrCl > 30 mL/min) *Enoxaparin/Lovenox 30 mg SQ daily (WT < 150 kg, CrCl > 10-29 mL/min) *Enoxaparin/Lovenox 30 mg SQ BID (WT < 150 kg, CrCl > 30 mL/min) AND *Sequential Compression Device (SCD) Assessment and Plan Problem List: (1) Near syncope ICD Code: R55 - Syncope and collapse (2) Coagulopathy ICD Code: D68.9 - Coagulation defect, unspecified (3) Symptomatic hypotension ICD Code: I95.89 - Other hypotension Assessment and Plan 81-year-old female with Symptomatic hypotension Hold all BP medications Continue with IV fluid hydration Coumadin induced coagulopathy Will give vitamin K 2.5 mg by mouth 1 now Hold Coumadin Monitor INR/PT History of atrial fibrillation Will hold both Coumadin and beta jaydon secondary to above complaints Acute renal failure Prerenal and secondary to dehydration Continue with IV fluid hydration Leukocytosis Continue with antibiotics Right arm contusion X-ray noted and reviewed by me without any evidence of fracture Generalized weakness PT consult to treat and eval Consult case management assistant for possible discharge disposition to SNF DVT prophylaxis: Bilateral SCDs Code Status Full code Discussed Condition With Patient, , ED physician Physician Certification 2 Midnight Certification Type: Admission for Inpatient Services Order for Inpatient Services The services are ordered in accordance with Medicare regulations or non- Medicare payer requirements, as applicable. In the case of services not specified as inpatient-only, they are appropriately provided as inpatient services in accordance with the 2-midnight benchmark. Estimated LOS (days): 2 days is the estimated time the patient will need to remain in the hospital, assuming treatment plan goals are met and no additional complications. Post-Hospital Plan: Not yet determined Babak Crandall MD Jan 12, 2017 17:52
[2017-01-12] MEDS ORDERED: PILL SPLITTER OTHER PRN (18:30)
[2017-01-12] MEDS ORDERED: PHYTONADIONE 5 MG TAB PO ONE (19:00)
--- NOTE | 2017-01-12 19:39 | EKG ---
Date Performed: 01/12/2017 Time Performed: 14:19:15 PTAGE: 81 years EKG: ELECTRONIC VENTRICULAR PACEMAKER ABNORMAL RHYTHM ECG No significant change from prior elect rocardiogram. DOCTOR: Jamie Lal Interpretating Date/Time 01/12/2017 19:38:46
[2017-01-12] MEDS: SODIUM CHLOR 0.9% 1000 ML INJ 1,000 ML IV SCH (19:40)
[2017-01-12] MEDS: SODIUM CHLORIDE 0.9% FLUSH 10 ML FLUSH IV FLUSH SCH (21:00)
[2017-01-12] MEDS: ATORVASTATIN 20 MG TAB PO SCH (21:18)
[2017-01-12] MEDS: CLINDAMYCIN 150 MG CAP PO SCH (21:18)
[2017-01-12] MEDS ORDERED: HYDROCORTISONE 10 MG TAB PO ONE (21:45)
[2017-01-13 03:23] VITALS: BP 160/79; PULSE 75; RESP 17; TEMP 98.4; O2SAT 94
[2017-01-13 08:23] VITALS: BP 174/85; PULSE 74; RESP 24; TEMP 96.7; O2SAT 96
[2017-01-13 08:45] LABS: AUTOMATED NEUTROPHIL # 8.4 TH/MM3 (1.8-7.7); BASOPHIL % 0.2 % (0.0-2.0); EOSINOPHIL % 0.4 % (0.0-4.0); HEMATOCRIT 39.5 % (35.0-46.0); LYMPH % 12.1 % (9.0-44.0); LYMPHOCYTE # 1.3 TH/MM3 (1.0-4.8); MEAN CELL VOLUME 89.4 FL (80.0-100.0); MEAN CORPUSCULAR HEMOGLOBIN 29.4 PG (27.0-34.0); MEAN CORPUSCULAR HGB CONC 32.8 % (32.0-36.0); MONO % 8.6 % (0.0-8.0); NEUT % 78.7 % (16.0-70.0); PLATELET COUNT 272 TH/MM3 (150-450); RED BLOOD COUNT 4.42 MIL/MM3 (4.00-5.30); RED CELL DISTRIBUTION WIDTH 18.1 % (11.6-17.2); WHITE BLOOD COUNT 10.6 TH/MM3 (4.0-11.0)
[2017-01-13 08:48] LABS: HEMO FLAGS AUTO DIFF
[2017-01-13] MEDS: SODIUM CHLOR 0.9% 1000 ML INJ 1,000 ML IV SCH (08:48)
[2017-01-13] MEDS: SODIUM CHLORIDE 0.9% FLUSH 10 ML FLUSH IV FLUSH SCH ×2 (08:51→20:26)
[2017-01-13] MEDS: CLINDAMYCIN 150 MG CAP PO SCH (08:51)
[2017-01-13 08:52] LABS: INTERNATIONAL NORMALIZED RATIO 2.2 RATIO
[2017-01-13 09:06] LABS: ALKALINE PHOSPHATASE 62 U/L (45-117); ALT (GPT) 19 U/L (10-53); ANION GAP 10 MEQ/L (5-15); AST (GOT) 19 U/L (15-37); BICARBONATE 25.3 MEQ/L (21.0-32.0); CHLORIDE 106 MEQ/L (98-107); GLOMERULAR FILTRATION RATE 67 ML/MIN (>89); POTASSIUM 4.3 MEQ/L (3.5-5.1); SODIUM (NA) 141 MEQ/L (136-145); TOTAL BILIRUBIN ADULT 1.8 MG/DL (0.2-1.0)
[2017-01-13 09:07] LABS: BLOOD UREA NITROGEN 19 MG/DL (7-18)
[2017-01-13 10:25] LABS: BANDS 2 % (0-6); CORRECTED NUCLEATED RBC 1 /100 WBC (0-0); NEUTROPHIL # MANUAL DIFF 9.2 TH/MM3 (1.8-7.7); POLYS (SEG NEUTROPHILS) 85 % (16-70); WBC DIFF SAMPLE 100
[2017-01-13 10:26] LABS: ACANTHOCYTES 1+ (NORMAL); BURR CELLS 1+ (NORMAL); OVALOCYTES 1+ (NORMAL); PLATELET ESTIMATE SMEAR NORMAL (NORMAL); PLATELET MORPHOLOGY NORMAL (NORMAL); SCAN/DIFF FINAL DIFF MANUAL
[2017-01-13] MEDS: HYDROCORTISONE 10 MG TAB PO SCH ×2 (11:45→16:58)
[2017-01-13] MEDS: traMADol HCL 50 MG TAB PO PRN ×2 (11:53→18:11)
[2017-01-13 11:54] VITALS: BP 163/79; PULSE 86; RESP 20; TEMP 99.4; O2SAT 94
[2017-01-13] MEDS ORDERED: HYDROCORTISONE SOD SUCCINATE 100 MG VIAL IV PUSH ONE (12:15)
--- NOTE | 2017-01-13 12:20 | HHI.PR ---
Subjective Remarks seen with at bedside recently watery stools x 4 days now, no fever or chills poor po intake states fall x 2 for 3 weeks yesterday felt dizzy had a few seconds of syncopal episode complains of pain on the right UE states takes meds- Cortef and Flourinef on regular basis Objective Vitals Vital Signs Date Time Temp Pulse Resp B/P (MAP) Pulse Ox O2 Delivery O2 Flow Rate FiO2 01/13/17 11:54 99.4 86 20 163/79 (107) 94 01/13/17 08:23 96.7 74 24 174/85 (114) 96 01/13/17 03:23 98.4 75 17 160/79 (106) 94 01/12/17 23:40 98.1 79 17 147/83 (104) 97 01/12/17 23:03 18 01/12/17 21:14 74 16 145/78 (100) 98 01/12/17 19:07 70 20 143/72 (95) 99 Nasal Cannula 2.00 01/12/17 17:45 74 20 119/70 (86) 94 Nasal Cannula 2.00 01/12/17 15:58 91 Nasal Cannula 2.00 01/12/17 15:58 91 Nasal Cannula 2.00 01/12/17 15:45 74 20 100/55 (70) 91 Room Air 01/12/17 14:23 80 19 94/60 (71) 94 Room Air 01/12/17 14:20 20 93 Room Air 01/12/17 14:10 82 17 94 01/12/17 13:59 98.5 77/52 (60) Room Air I/O 01/12/17 01/12/17 01/12/17 01/13/17 01/13/17 01/13/17 07:00 15:00 23:00 07:00 15:00 23:00 Intake Total 2000 ml Balance 2000 ml Intake IV Total 2000 ml Result Diagram: 01/13/1748 01/13/17747 Imaging Last Impressions Radius/Ulna X-Ray 01/12/171433 Signed Impressions: Service Date/Time: Thursday, January 12, 2017 15:08 - CONCLUSION: Negative for fracture. Sina Davis MD FACR Chest X-Ray 11/8/17 1434 Signed Impressions: Service Date/Time: Thursday, January 12, 2017 15:06 - CONCLUSION: Negative for infiltrate or failure. Mild compensated cardiomegaly Sina Davis MD FACR Objective Remarks awake and alert, generalized weakness skin- right shoulder area- with fading bruis anicteric lungs- no rales regular rhythm abdomen- soft good bowel sounds Right UE- swelling and erythema, with superficial wound with induration forearm LE- no edema,. no calf swelling or tenderness A/P Problem List: (1) Symptomatic hypotension ICD Code: I95.89 - Other hypotension (2) Near syncope ICD Code: R55 - Syncope and collapse (3) Coagulopathy ICD Code: D68.9 - Coagulation defect, unspecified Assessment and Plan 81-year-old female with adrenal insufficiency Symptomatic hypotension History of adrenal insufficiency dehydration component- elevated BUN/crea- received IVF will give x 1 IV dose of Hydrocortisone restart her home regimen of hydrocortisone 10, 10, 5 restart Flourinef Hold BP med- MAXIMILIANO Continue with IV fluid hydration Diarrhea- recently check C diff Coumadin induced coagulopathy- INR down restart Coumadin if imaging no hematoma Monitor INR/PT History of atrial fibrillation S/P PM continue to monitor on Coreg and MAXIMILIANO- held Acute renal failure- improved Continue with IV fluid hydration Recent UTI- 01/06- E faecalis- treated with clindamycin repeat UA negative DC Clindamycin Right arm Swelling and pain with cellulitis r/o possible abscess or hematoma right shoulder pain- with old bruise there X-ray noted and reviewed by me without any evidence of fracture get CT of forearm and shoulder r/o abscess, hematoma, fracture PT consult in am if no fractures Generalized weakness PT consult to treat and eval Consult immigration case manager for possible discharge disposition to SNF DVT prophylaxis: Bilateral SCDs Dawit Duran MD Jan 13, 2017 12:20
[2017-01-13 14:30] LABS: C. DIFF EPI 027 PRESUMPTIVE NEGATIVE (NEGATIVE)
--- NOTE | 2017-01-13 15:40 | RADRPT ---
EXAM DATE/TIME: 01/13/2017 14:37 [facility] COMPARISON: No previous studies available for comparison. INDICATIONS : Right shoulder pain after fall. MEDICAL HISTORY : None. SURGICAL HISTORY : None. ENCOUNTER: Initial ACUITY: 2 days PAIN SCORE: 10/10 LOCATION: Right shoulder. FINDINGS: 4 views of the right shoulder demonstrate no acute fracture or dislocation. Bones appear mildly under mineralized. There are osteophytes at the glenohumeral joint and there is mild osteoarthritis at the acromioclavicular joint. Humeral head is elevated in relationship to the undersurface of the acromion . No soft tissue abnormality is seen. Visualized right chest demonstrates no acute finding. Patient i s post median sternotomy. CONCLUSION: 1. No acute right shoulder abnormality is identified. However, there are changes indicative of chroni c rotator cuff tear. 2. 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 Tru Sepulveda MD on January 13, 2017 at 15:37 Board Certified Radiologist. This report was verified electronically.
--- NOTE | 2017-01-13 15:46 | RADRPT ---
EXAM DATE/TIME: 01/13/2017 14:53 [facility] COMPARISON: FOREARM RIGHT (2VWS), January 12, 2017, 15:08. INDICATIONS : Swelling and redness right forearm RADIATION DOSE: 11.61 CTDIvol (mGy) MEDICAL HISTORY : Cardiovascular disease. Hypertension. SURGICAL HISTORY : CABG Hysterectomy. Cholecystectomy. ENCOUNTER: Initial ACUITY: 1 day PAIN SCALE: 4/10 LOCATION: Right forearm TECHNIQUE: Volumetric scanning of the forearm was performed. Using automated exposure control and adjustment of the mA and/or kV according to patient size, radiation dose was kept as low as reasonably achievable to obtain optimal diagnostic quality images. DICOM format image data is available electronically for review and comparison. FINDINGS: BONES: The bones are undermineralized. No fracture is identified. SOFT TISSUES: There is an ovoid mildly heterogeneous but hyperdense mass in the mid posterior forearm measuring 4.7 x 1.8 x 1.8 cm. It is located in the extensor musculature. There is diffuse subcutaneous edema throu ghout the forearm. Severe arteriovascular calcification is present within the radial and ulnar arteri es. CONCLUSION: 1. There is an ovoid hyperdense mass measuring up to 4.7 cm in the mid posterior forearm within the e xtensor musculature. Given the appearance and history of anti-coagulation, a hematoma is the most lik hawa etiology. A solid mass or infectious process cannot completely be excluded based on imaging. Ultr asound may be able to further characterize whether this is a solid mass, if needed. If hematoma fits with the clinical picture, consider clinical followup to confirm resolution. 2. Diffuse subcutaneous edema of the forearm without fracture. Tru Sepulveda MD on January 13, 2017 at 15:40 Board Certified Radiologist. This report was verified electronically.
[2017-01-13 16:24] VITALS: BP 142/84; PULSE 80; RESP 24; TEMP 98.3; O2SAT 92
--- NOTE | 2017-01-13 18:41 | RADRPT ---
EXAM DATE/TIME: 01/13/2017 17:52 [facility] COMPARISON: No previous studies available for comparison. INDICATIONS : Abscess. MEDICAL HISTORY : Hypercholesterolemia. Hypertension. Renal failure, acute. Ascending aortic aneurysm. Coronary artery disease. Atrial fibrillation. Arthritis. SURGICAL HISTORY : Pacemaker. Hysterectomy. Appendectomy. Cataract surgery. Aortic root aneurysm repair. ENCOUNTER: Initial ACUITY: 1 day PAIN SCORE: 3/10 LOCATION: Right arm. AREA EVALUATED: Anterior portion forearm. FINDINGS: Sonographic evaluation of the area of concern within the forearm was performed. Within the subcutaneo us tissues there is a heterogeneous but predominantly hypoechoic area measuring 4.4 x 1.7 x 1.7 cm. N o posterior acoustical enhancement. No shadowing. No significant hyperemia. No blood flow within this area. CONCLUSION: 4.4 cm hypoechoic structure involving the superficial subcutaneous tissues is nonspecific in its appe arance but likely relates to hematoma. A phlegmon that has yet to liquefy into an abscess can have a similar appearance. Gee Kimball Jr., MD on January 13, 2017 at 18:37 Board Certified Radiologist. This report was verified electronically.
[2017-01-13] MEDS: PANTOPRAZOLE SOD 20 MG DELAYED RELEASE TAB PO SCH (21:00)
[2017-01-13] MEDS: ATORVASTATIN 20 MG TAB PO SCH (21:00)
[2017-01-13 21:23] VITALS: BP 138/70; PULSE 77; RESP 17; TEMP 98.3; O2SAT 94
[2017-01-14] VITALS (11 sets, daily range): BP systolic 96–165; BP diastolic 61–91; PULSE 20–169; RESP 16–20; TEMP 97.8–98.6; O2SAT 93–99
[2017-01-14] MEDS: traMADol HCL 50 MG TAB PO PRN (06:34)
[2017-01-14] MEDS: HYDROCORTISONE 10 MG TAB PO SCH ×3 (07:00→16:13)
[2017-01-14 07:15] LABS: INTERNATIONAL NORMALIZED RATIO 1.2 RATIO; PROTHROMBIN TIME - PATIENT 12.9 SEC (9.8-11.6)
[2017-01-14 07:37] LABS: ALT (GPT) 22 U/L (10-53); ANION GAP 8 MEQ/L (5-15); AST (GOT) 24 U/L (15-37); BICARBONATE 24.8 MEQ/L (21.0-32.0); BLOOD UREA NITROGEN 16 MG/DL (7-18); CHLORIDE 105 MEQ/L (98-107); GLOMERULAR FILTRATION RATE 69 ML/MIN (>89); POTASSIUM 4.1 MEQ/L (3.5-5.1); SODIUM (NA) 138 MEQ/L (136-145)
[2017-01-14 07:39] LABS: ALKALINE PHOSPHATASE 61 U/L (45-117)
--- NOTE | 2017-01-14 07:43 | HHI.PR ---
Subjective Remarks now complains of upper back spasms and left shoulder pain right shoulder and forearm pain - still hurt- Tramadol not much help per - INR was 5 as OP- and Dr. Castelan's office sent her here Objective Vitals Vital Signs Date Time Temp Pulse Resp B/P (MAP) Pulse Ox O2 Delivery O2 Flow Rate FiO2 01/14/17 03:38 97.8 76 17 152/89 (110) 94 01/14/17 00:16 98.6 72 18 165/91 (115) 93 01/13/17 21:23 98.3 77 17 138/70 (92) 94 01/13/17 16:24 98.3 80 24 142/84 (103) 92 01/13/17 11:54 99.4 86 20 163/79 (107) 94 01/13/17 08:23 96.7 74 24 174/85 (114) 96 Result Diagram: 01/13/17 0748 01/13/17 0748 Imaging Last Impressions Upper Extremity Ultrasound 01/13/17 0000 Signed Impressions: Service Date/Time: January 17:52 - CONCLUSION: 4.4 cm hypoechoic structure involving the superficial subcutaneous tissues is nonspecific in its appearance but likely relates to hematoma. A phlegmon that has yet to liquefy into an abscess can have a similar appearance. Gee Kimball Jr., MD Upper Extremity CT 01/13/17 0000 Signed Impressions: Service Date/Time: January 14:53 - CONCLUSION: 1. There is an ovoid hyperdense mass measuring up to 4.7 cm in the mid posterior forearm within the extensor musculature. Given the appearance and history of anti-coagulation, a hematoma is the most likely etiology. A solid mass or infectious process cannot completely be excluded based on imaging. Ultrasound may be able to further characterize whether this is a solid mass, if needed. If hematoma fits with the clinical picture, consider clinical followup to confirm resolution. 2. Diffuse subcutaneous edema of the forearm without fracture. Tru Sepulveda MD Shoulder X-Ray 01/13/17 0000 Signed Impressions: Service Date/Time: January 14:37 - CONCLUSION: 1. No acute right shoulder abnormality is identified. However, there are changes indicative of chronic rotator cuff tear. 2. 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 Tru Sepulveda MD Radius/Ulna X-Ray 01/12/17 1434 Signed Impressions: Service Date/Time: Thursday, January 12, 2017 15:08 - CONCLUSION: Negative for fracture. Sina Davis MD FACR Chest X-Ray 01/12/17 1434 Signed Impressions: Service Date/Time: Thursday, January 12, 2017 15:06 - CONCLUSION: Negative for infiltrate or failure. Mild compensated cardiomegaly Sina Davis MD FACR Objective Remarks awake and alert, oriented x 3 skin- right shoulder area- with fading bruise neck supple no nuchal rigidity anicteric lungs- no rales regular rhythm abdomen- soft good bowel sounds Right UE- swelling and erythema, with superficial wound with induration forearm - improved some pain with passive range of motion LE- no edema,. 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 A/P Problem List: (1) Symptomatic hypotension ICD Code: I95.89 - Other hypotension (2) Near syncope ICD Code: R55 - Syncope and collapse (3) Coagulopathy ICD Code: D68.9 - Coagulation defect, unspecified Assessment and Plan 81-year-old female with adrenal insufficiency Symptomatic hypotension- improved History of adrenal insufficiency dehydration component- elevated BUN/crea- received IVF- - will DC iVF and monitor S/P will give x 1 IV dose of Hydrocortisone 01/13 restarted her home regimen of hydrocortisone 10, 10, 5 restarted Flourinef Hold BP med- MAXIMILIANO/Coreg IV fluid hydration- will heplock and monitor BPs off fluids now Consult Dr. Castelan- known to him Diarrhea- recently- no further episodes- but describes stools as loose check C diff Coumadin induced coagulopathy- INR down Right arm Swelling with hematoma on CT + heamtoma on forearm- - swelling decreased, Monitor INR/PT downt o 1.[address] Castelan for recommendation- re: initiate coumadin with hematoma History of atrial fibrillation S/P PM continue to monitor on Altace and coreg- held for now consult Dr. Castelan- coumadin on hold- with hematoma - forearm- will d/w regardingcoumadin with forearm hematoma- imrpoving Acute renal failure- improved heplock and monitor Recent UTI- 01/06- E faecalis- treated with clindamycin repeat UA negative DC Clindamycin Right old rotator cuff injury on CT on discussion with - was seen by Dr. Willard in the past for this- no surgery due to age PT consult - teach to do range of motion- passive- states they go to [facility] 2-3x a week change Tramadol to Percocet Flexeril for spasms Generalized weakness- able to get her up tp chair- limited by pain PT consult to treat and eval Consult case fitter for possible discharge disposition to SNF- patient and refused- states [facility] DVT prophylaxis: Bilateral SCDs will d/w Cardioogy- restarting Coumadin- - with forearm hematoma Dawit Duran MD Jan 14, 2017 07:43
[2017-01-14] MEDS ORDERED: oxyCODONE/ACETAMINOPHEN 7.5 MG/325 MG TAB PO ONE (08:00)
[2017-01-14] MEDS: SODIUM CHLORIDE 0.9% FLUSH 10 ML FLUSH IV FLUSH SCH ×2 (08:03→22:17)
[2017-01-14] MEDS: PANTOPRAZOLE SOD 20 MG DELAYED RELEASE TAB PO SCH ×2 (08:03→22:17)
[2017-01-14] MEDS: CYCLOBENZAPRINE HCL 10 MG TAB PO PRN (08:05)
[2017-01-14] MEDS: FLUDROCORTISONE ACETATE 0.1 MG TAB PO SCH (11:49)
--- NOTE | 2017-01-14 14:52 | MB ---
cc: KIRIT CAMPBELL M.D. DATE OF CONSULTATION: 01/14/2017 REASON FOR CONSULTATION Coagulopathy and hypotension. HISTORY OF PRESENT ILLNESS Ms. Guerrero is an 81-year-old white female well-known to me with a history of nonischemic cardiomyopathy whose left ventricular function is now normal after placement of a biventricular ICD, hypertensive heart disease, orthostatic hypotension, pulmonary hypertension, tricuspid regurgitation and chronic diastolic heart failure. The patient has had also bilateral adrenalectomies and has been maintained on hydrocortisone and fludrocortisone. According to her the patient got out of bed to get to the bedside commode and slipped and injured her arm falling. She was light-headed but did not have any syncope or loss of consciousness, although she was very drowsy. She was brought to the emergency room and found to have a large hematoma in her right upper extremity and hypotension. The patient is very somnolent at this time after receiving some pain medication and the history is obtained from the who is at the bedside. He says she has not been eating well lately but has been getting all of her medications. She was recently placed on clindamycin and prednisone for an infection. Her INR was greater than 5 on arrival here in the emergency room and is now down below 2. Her Coumadin, carvedilol, Ritalin, ramipril as well as her Lasix have been on hold since admission back on the . PAST MEDICAL HISTORY As mentioned above. PAST SURGICAL HISTORY 1. Aortic valve replacement. 2. Biventricular ICD. 3. Abdominal aortic aneurysm repair. 4. Appendectomy. 5. Bilateral adrenalectomy. 6. Cataract surgery. 7. Hysterectomy. 8. Right hip replacement. 9. Brain tumor surgery. 10.Right ankle surgery. MEDICATIONS Medications currently: 1. Florinef 0.05 mg Tuesday, Tuesday and Tuesday. 2. Flexeril 5 mg q.8h. p.r.n. 3. Hydrocortisone 5 mg a.c. dinner and 10 mg b.i.d. 4. Lipitor 20 mg h.s. 5. Zofran 4 mg q.6h. p.r.n. She did receive some intravenous fluids the first 24 hours of admission and her blood pressure did improve with hydration. SOCIAL HISTORY The patient is , living with her . She is normally active but does no regular exercise. She denies any tobacco, alcohol or illicit drug use. REVIEW OF SYSTEMS A review of systems is not obtainable at this time. The patient is very somnolent. PHYSICAL EXAMINATION GENERAL: An elderly white female sitting up and sleeping in a chair. VITAL SIGNS: Blood pressure 103/68 mmHg, heart rate 94 and regular, respiratory rate 16, temperature 97.8. Oxygen saturation 97% on room air. HEENT: Head is normocephalic and atraumatic. Pupils are equal, round and react to light. Sclera anicteric. Extraocular movements intact. NECK: Supple. There is no adenopathy. No jugular venous tension at 90 degrees. Carotid upstrokes normal. No bruits. LUNGS: Clear. HEART: PMI is not displaced. S1, S2 normal. There is grade 1-2/6 systolic murmur at the base. No diastolic murmur, gallops or rubs. ABDOMEN: Benign. EXTREMITIES: No cyanosis or clubbing. No lower extremity edema. There is edema of the right upper extremity with a small laceration on the forearm. This is moderately tender. Perfusion is adequate. EKG An EKG from admission shows an electronic dual-chamber pacemaker rhythm, 100% capture, rate 81. IMAGING X-ray of the shoulder shows no acute right shoulder abnormality, chronic right rotator cuff tear, mild osteoarthritis of the glenohumeral and acromioclavicular joints. Ultrasound of the right upper extremity shows a 4.4 cm hypoechoic structure involving the superficial subcutaneous tissue suspicious for hematoma. LABORATORY Labs from yesterday: White count 10.6, hemoglobin 13.0, hematocrit 39.5, platelet count 272,000. INR from today 1.2, was 2.2 yesterday. Sodium 138, potassium 4.1, chloride 105, CO2 24.8, BUN 16, creatinine 0.8, AST 24. IMPRESSION 1. Mild hypotension and lightheadedness on admission, currently resolved. 2. Fall with right upper extremity injury and hematoma, improving. 3. History of nonischemic cardiomyopathy, currently left ventricular systolic function is normalized status post FAMILY SUPPORT WORKER-D implant functioning normally on recent interrogations. 4. Hypertensive heart disease with history of orthostatic hypotension. 5. Status post bilateral adrenalectomy on replacement steroid therapy. 6. Pulmonary hypertension with moderate tricuspid regurgitation. 7. Chronic diastolic congestive heart failure, currently compensated. 8. Aortic insufficiency status post aortic valve/root replacement July 30, 2005, functioning normally. 9. Paroxysmal atrial fibrillation currently in AV paced rhythm. RECOMMENDATIONS I suspect the patient's hypotension was multifactorial on admission and related to pain, dehydration and her recent bleeding and hematoma. The hematoma appears to be resolving. The patient's says it is much better since she arrived here but her right arm is still swollen and painful. She is receiving pain medication and treatment for that. I would raise the right arm whenever possible when lying in bed and perhaps use a sling when she is sitting up in a chair. Warm compresses 20 minutes on and 20 minutes off have also been ordered to expedite resolution of the hematoma which may take a couple of weeks. I think she is stable at this point and can be restarted on her warfarin anticoagulation safely to maintain an INR between 2 and 3 seconds. Her blood pressure is still running on the low side so carvedilol, ramipril and Lasix can be withheld a little bit longer and then slowly restarted as her blood pressure recovers when she becomes more active. Otherwise she appears to be stable from my standpoint. I have discussed plans with the patient's and Dr. Duran. I thank you for allowing me to participate in the care of this patient. Please see orders. MD KAYLENE Hutchison/ELHAM /1:55 PM /2:29 PM MAYELA
[2017-01-14] MEDS: WARFARIN SOD 3 MG TAB PO SCH (16:13)
--- NOTE | 2017-01-14 17:52 | HHI.FPPN ---
Addendum to progress note ADDENDUM Reason for addendum: Additonal documentation Additional information S: Michela called on patient due to tachycardia in the 170's, found to be in SVT on EKG. Patient complained of chest tightness and feeling her heart racing O: Gen: WDWN female in NAD CV: regular tachycardic rate Resp: CTAB A: 81 y/o female with SVT in the setting of a pacemaker Plan: -Stat Troponin, CBC, BMP -Cardizem 15mg bolus then transition to cardizem drip - patient converted to a paced rhythm in the 80's after bolus -Transfer to a critical care bed Seen and examined with Dr. Deysi Lee,Amber Morel MD R2 Jan 14, 2017 17:52
--- NOTE | 2017-01-14 17:56 | HHI.PR ---
Addendum to Inpatient Note Addendum Reason: Additional Documentation Additional Information Halicat called patient went into SVT HR 170s BP 96/68 afebrile complains of feeling of palpitations and tightness - EKG- rate 170s- SVT - stat CBC, BMP, troponin - start Cardizem drip 15 mg - converted to paced rhythm 80s immediately - start drip at 5 mg/hr - transfer to [facility] or [facility] bed - will change po cortef to IV- stress dose 100 mg q 8/- DC po cortef d/w patient and at bedside Dawit Duran MD Jan 14, 2017 17:56
[2017-01-14] MEDS ORDERED: DILTIAZEM INJ 125 MG in SODIUM CHLORIDE 0.9% INJ 100 ML IV PRN (18:00)
[2017-01-14] MEDS ORDERED: DILTIAZEM HCL 25 MG/5 ML VIAL IV PUSH ONE (18:00)
[2017-01-14] MEDS ORDERED: SODIUM CHLOR 0.9% 250 ML INJ 250 ML IV ONE (18:15)
[2017-01-14] MEDS: HYDROCORTISONE SOD SUCCINATE 100 MG VIAL IV PUSH SCH ×2 (18:18→22:16)
[2017-01-14 18:55] LABS: MEAN CELL VOLUME 88.2 FL (80.0-100.0); MEAN CORPUSCULAR HEMOGLOBIN 30.2 PG (27.0-34.0); MEAN CORPUSCULAR HGB CONC 34.3 % (32.0-36.0); PLATELET COUNT 228 TH/MM3 (150-450); RED BLOOD COUNT 4.08 MIL/MM3 (4.00-5.30); RED CELL DISTRIBUTION WIDTH 17.6 % (11.6-17.2); REVIEW FLAG FINAL
[2017-01-14 19:13] LABS: BICARBONATE 22.9 MEQ/L (21.0-32.0); POTASSIUM 3.7 MEQ/L (3.5-5.1)
[2017-01-14] MEDS: ATORVASTATIN 20 MG TAB PO SCH (22:17)
[2017-01-14] MEDS: oxyCODONE/ACETAMINOPHEN 5 MG/325 MG TAB PO PRN (22:34)
[2017-01-15] VITALS (12 sets, daily range): BP systolic 109–150; BP diastolic 59–84; PULSE 61–87; RESP 13–21; TEMP 97.7–98.3; O2SAT 93–99
[2017-01-15 05:40] LABS: INTERNATIONAL NORMALIZED RATIO 1.1 RATIO; PROTHROMBIN TIME - PATIENT 12.5 SEC (9.8-11.6)
[2017-01-15 05:49] LABS: BICARBONATE 24.6 MEQ/L (21.0-32.0); POTASSIUM 4.3 MEQ/L (3.5-5.1)
[2017-01-15] MEDS: HYDROCORTISONE SOD SUCCINATE 100 MG VIAL IV PUSH SCH ×3 (05:56→21:33)
[2017-01-15] MEDS: oxyCODONE/ACETAMINOPHEN 5 MG/325 MG TAB PO PRN ×3 (06:09→21:35)
[2017-01-15 06:20] LABS: MEAN CELL VOLUME 88.3 FL (80.0-100.0); MEAN CORPUSCULAR HEMOGLOBIN 30.3 PG (27.0-34.0); MEAN CORPUSCULAR HGB CONC 34.3 % (32.0-36.0); PLATELET COUNT 212 TH/MM3 (150-450); RED BLOOD COUNT 4.07 MIL/MM3 (4.00-5.30); RED CELL DISTRIBUTION WIDTH 18.3 % (11.6-17.2); REVIEW FLAG FINAL; WHITE BLOOD COUNT 7.8 TH/MM3 (4.0-11.0)
--- NOTE | 2017-01-15 07:46 | PD.CARD.PN ---
Subjective Subjective Remarks Halicat yesterday afternoon due to sudden onset tachycardia. Paroxysmal A. fib with RVR noted. Mild hypotension. Responded to IV Cardizem. Now back in NSR. Hemodynamics stable. Denies CP or SOB. Objective Medications Current Medications Medications (Trade) Dose Ordered Sig/Richard Route Start Time Stop Time Status Last Admin (Lipitor) 20 mg HS PO 01/12/17 21:00 01/14/17 22:17 (NS Flush) 2 ml UNSCH PRN IV FLUSH 01/12/17 17:45 (NS Flush) 2 ml BID IV FLUSH 01/12/17 21:00 01/14/17 22:17 (Tylenol) 650 mg Q4H PRN PO 01/12/17 17:45 (Zofran Inj) 4 mg Q6H PRN IVP 01/12/17 17:45 (Tylenol) 650 mg Q6H PRN PO 01/12/17 17:45 01/12/17 21:19 (Narcan Inj) 0.4 mg UNSCH PRN IV PUSH 01/12/17 17:45 (Milk Of Magnesia Liq) 30 ml Q12H PRN PO 01/12/17 17:45 (Pill Splitter) 1 ea UNSCH PRN OTHER 01/12/17 18:30 (Florinef) 0.05 mg MoWeFr PO 01/14/17 12:00 01/14/17 11:49 (Protonix) 20 mg BID PO 01/13/17 21:00 01/14/17 22:17 (Flexeril) 5 mg Q8HR PRN PO 01/14/17 08:00 01/14/17 08:05 (Percocet 5-325 Mg) 1 tab Q6H PRN PO 01/14/17 12:00 01/15/17 06:09 (Coumadin) 3 mg DAILY@16 PO 01/14/17 16:00 01/14/17 16:13 (SoluCORTEF INJ) 100 mg Q8HR IV PUSH 01/14/17 18:15 01/15/17 05:56 (Coreg) 25 mg Q12HR PO 01/15/17 09:00 Vital Signs / I&O Vital Signs Date Time Temp Pulse Resp B/P (MAP) Pulse Ox O2 Delivery O2 Flow Rate FiO2 01/15/17 06:13 74 01/15/17 04:00 82 01/15/17 04:00 98.1 63 13 143/77 (99) 99 01/15/17 02:00 70 01/15/17 00:00 78 01/15/17 00:00 98.0 78 21 140/84 (102) 94 01/14/17 23:34 20 01/14/17 22:00 76 01/14/17 20:00 98.3 80 20 119/75 (90) 95 01/14/17 20:00 20 01/14/17 18:05 89 105/61 (76) 01/14/17 18:04 85 98/65 01/14/17 17:37 98.0 169 18 96/69 (78) 99 01/14/17 12:55 93 01/14/17 12:07 97.8 94 16 103/63 (76) 97 01/14/17 09:59 87 01/14/17 08:18 98.0 97 16 137/89 (105) 93 I/O 01/14/17 01/14/17 01/14/17 01/15/17 01/15/17 01/15/17 07:00 15:00 23:00 07:00 15:00 23:00 Intake Total 250 ml 120 ml Balance 250 ml 120 ml Intake Oral 120 ml IV Total 250 ml # Voids 3 Physical Exam VSS, afebrile. No JVD Lung: CTA Heart: RRR, systolic murmur. Ext; Warm and well perfused. RUE hematoma improving. Neuro: Non-focal Laboratory Laboratory Tests Test 01/14/17 18:34 01/14/17 18:39 01/15/17 04:35 White Blood Count 10.0 TH/MM3 7.8 TH/MM3 Red Blood Count 4.08 MIL/MM3 4.07 MIL/MM3 Hemoglobin 12.4 GM/DL 12.3 GM/DL Hematocrit 36.0 % 36.0 % Mean Corpuscular Volume 88.2 FL 88.3 FL Mean Corpuscular Hemoglobin 30.2 PG 30.3 PG Mean Corpuscular Hemoglobin Concent 34.3 % 34.3 % Red Cell Distribution Width 17.6 % 18.3 % Platelet Count 228 TH/MM3 212 TH/MM3 Mean Platelet Volume 7.1 FL 7.1 FL Blood Urea Nitrogen 18 MG/DL 18 MG/DL Creatinine 0.86 MG/DL 0.72 MG/DL Random Glucose 117 MG/DL 101 MG/DL Calcium Level 8.4 MG/DL 8.0 MG/DL Sodium Level 137 MEQ/L 136 MEQ/L Potassium Level 3.7 MEQ/L 4.3 MEQ/L Chloride Level 103 MEQ/L 103 MEQ/L Carbon Dioxide Level 22.9 MEQ/L 24.6 MEQ/L Anion Gap 11 MEQ/L 8 MEQ/L Estimat Glomerular Filtration Rate 63 ML/MIN 78 ML/MIN Troponin I 0.03 NG/ML Prothrombin Time 12.5 SEC Prothromb Time International Ratio 1.1 RATIO Assessment and Plan Problem List: (1) Paroxysmal atrial fibrillation with rapid ventricular response ICD Codes: I48.0 - Paroxysmal atrial fibrillation (2) Cardiac resynchronization therapy defibrillator (EARLY CHILDHOOD WORKER-D) in place ICD Codes: Z95.810 - Presence of cardiac resynchronization therapy defibrillator Status: Chronic (3) Symptomatic hypotension ICD Codes: I95.89 - Other hypotension (4) Weakness ICD Codes: R53.1 - Weakness Status: Acute (5) Status post aortic valve replacement ICD Codes: Z95.2 - Status post aortic valve replacement Status: Acute (6) [place]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 Will restart her Coreg 25 mg BID as tolerated. D/C IV Cardizem. Continue supportive care. Following. Code Status Full Discussed Condition With Patient and Dr. Duran. Armand Lr MD Jan 15, 2017 07:46
[2017-01-15] MEDS: SODIUM CHLORIDE 0.9% FLUSH 10 ML FLUSH IV FLUSH SCH ×2 (08:19→21:33)
[2017-01-15] MEDS: PANTOPRAZOLE SOD 20 MG DELAYED RELEASE TAB PO SCH ×2 (08:49→21:33)
[2017-01-15] MEDS ORDERED: CARVEDILOL 12.5 MG TAB PO SCH (09:00)
[2017-01-15] MEDS: CYCLOBENZAPRINE HCL 10 MG TAB PO PRN (09:07)
--- NOTE | 2017-01-15 12:32 | EKG ---
Date Performed: 01/14/2017 Time Performed: 17:32:29 PTAGE: 81 years EKG: UNCERTAIN REGULAR RHYTHM MARKED LEFT AXIS DEVIATION MODERATE INTRAVENTRICULAR CONDUCTION DE LAY MARKED ST DEPRESSION, CONSIDER SUBENDOCARDIAL INJURY Cannot exclude this being ventricular tachy cardia; although, a supraventricular tachycardia with a rate of 172 is also possible. Cannot discern P-waves. ABNORMAL ECG PREVIOUS TRACING : 01/12/2017 14.19 Previous tracing showed a ventricular paced rhythm. Clinica l correlation strongly recommended. DOCTOR: Stiven Mendosa Interpretating Date/Time 01/15/2017 12:31:39
[2017-01-15] MEDS ORDERED: SODIUM CHLOR 0.9% 250 ML INJ 250 ML IV ONE (14:30)
--- NOTE | 2017-01-15 14:57 | HHI.PR ---
Subjective Remarks feels and looks better BP dropped to 70s after introduction of coreg 25 mg given NS 250 ss bolus improved Objective Vitals Vital Signs Date Time Temp Pulse Resp B/P (MAP) Pulse Ox O2 Delivery O2 Flow Rate FiO2 01/15/17 14:00 70 01/15/17 12:00 78 01/15/17 12:00 97.9 84 20 127/79 (95) 94 01/15/17 10:00 61 01/15/17 08:00 68 01/15/17 08:00 97.7 68 14 150/82 (104) 96 01/15/17 07:00 94 Room Air 01/15/17 07:00 68 153/83 01/15/17 06:13 74 01/15/17 04:00 82 01/15/17 04:00 98.1 63 13 143/77 (99) 99 01/15/17 02:00 70 01/15/17 00:00 78 01/15/17 00:00 98.0 78 21 140/84 (102) 94 01/14/17 23:34 20 01/14/17 22:00 76 01/14/17 20:00 98.3 80 20 119/75 (90) 95 01/14/17 20:00 20 01/14/17 18:05 89 105/61 (76) 01/14/17 18:04 85 98/65 01/14/17 17:37 98.0 169 18 96/69 (78) 99 I/O 01/14/17 01/14/17 01/14/17 01/15/17 01/15/17 01/15/17 07:00 15:00 23:00 07:00 15:00 23:00 Intake Total 250 ml 195 ml Balance 250 ml 195 ml Intake Oral 120 ml IV Total 250 ml 75 ml # Voids 3 Result Diagram: 01/15/17 0435 01/15/17 0435 Imaging Last Impressions Upper Extremity Ultrasound 01/13/17 0000 Signed Impressions: Service Date/Time: January 17:52 - CONCLUSION: 4.4 cm hypoechoic structure involving the superficial subcutaneous tissues is nonspecific in its appearance but likely relates to hematoma. A phlegmon that has yet to liquefy into an abscess can have a similar appearance. Gee Kimball Jr., MD Upper Extremity CT 01/13/17 0000 Signed Impressions: Service Date/Time: January 14:53 - CONCLUSION: 1. There is an ovoid hyperdense mass measuring up to 4.7 cm in the mid posterior forearm within the extensor musculature. Given the appearance and history of anti-coagulation, a hematoma is the most likely etiology. A solid mass or infectious process cannot completely be excluded based on imaging. Ultrasound may be able to further characterize whether this is a solid mass, if needed. If hematoma fits with the clinical picture, consider clinical followup to confirm resolution. 2. Diffuse subcutaneous edema of the forearm without fracture. Tru Sepulveda MD Shoulder X-Ray 01/13/17 0000 Signed Impressions: Service Date/Time: January 14:37 - CONCLUSION: 1. No acute right shoulder abnormality is identified. However, there are changes indicative of chronic rotator cuff tear. 2. 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 Tru Sepulveda MD Radius/Ulna X-Ray 01/12/17 1434 Signed Impressions: Service Date/Time: Thursday, January 12, 2017 15:08 - CONCLUSION: Negative for fracture. Sina Davis MD FACR Chest X-Ray 01/12/17 1434 Signed Impressions: Service Date/Time: Thursday, January 12, 2017 15:06 - CONCLUSION: Negative for infiltrate or failure. Mild compensated cardiomegaly Snia Davis MD FACR Objective Remarks awake and alert, oriented x 3 skin- right shoulder area- with fading bruise neck supple no nuchal rigidity anicteric lungs- no rales regular rhythm abdomen- soft good bowel sounds Right UE- swelling and erythema- continues to improved, with superficial wound with induration forearm-dry LE- no edema,. no calf swelling or tenderness LUE- able to raise with no difficulty good hand bread room hand bilateral A/P Problem List: (1) Symptomatic hypotension ICD Code: I95.89 - Other hypotension (2) Near syncope ICD Code: R55 - Syncope and collapse (3) Coagulopathy ICD Code: D68.9 - Coagulation defect, unspecified Assessment and Plan 81-year-old female with adrenal insufficiency Symptomatic hypotension- improved History of adrenal insufficiency dehydration component- elevated BUN/crea- received IVF- off IV continue on Hydrocotisone IV at 50 mg q 8 continue Flourinef History of atrial fibrillation S/P PM continue to monitor- BP improved Zi held Coreg 25 restarted (home dose)- drop in BP- H and H normal responded to IVF 250 cc restart at 1/2 dose continue coumadin-H and H stable Diarrhea- - imrpoved Coumadin induced coagulopathy- Right arm Swelling with hematoma on CT + heamtoma on forearm- - swelling decreased, restarted coumdin- ff INR Acute renal failure- improved heplock and monitor Recent UTI- 01/06- E faecalis- treated with clindamycin repeat UA negative DC Clindamycin Right old rotator cuff injury on CT on discussion with - was seen by Dr. Willard in the past for this- no surgery due to age PT consult - teach to do range of motion- passive- states they go to Sports medicine 2-3x a week change Tramadol to Percocet Flexeril for spasms Generalized weakness- able to get her up tp chair- limited by pain PT consult to treat and eval Consult case management manager for possible discharge disposition to SNF- patient and refused- states they go to [facility] DVT prophylaxis: Bilateral SCDs if BP stable- out of bed to chair PT eval in am with caution and VS monitoring Dawit Duran MD Jan 15, 2017 14:57
[2017-01-15] MEDS: WARFARIN SOD 3 MG TAB PO SCH (16:54)
[2017-01-15] MEDS: ATORVASTATIN 20 MG TAB PO SCH (21:35)
[2017-01-15] MEDS: CARVEDILOL 12.5 MG TAB PO SCH (21:35)
[2017-01-16] VITALS (12 sets, daily range): BP systolic 124–161; BP diastolic 66–83; PULSE 60–84; RESP 14–19; TEMP 97–98.1; O2SAT 92–97
[2017-01-16] MEDS: oxyCODONE/ACETAMINOPHEN 5 MG/325 MG TAB PO PRN ×4 (03:38→23:30)
[2017-01-16] MEDS: CYCLOBENZAPRINE HCL 10 MG TAB PO PRN ×3 (03:38→23:31)
[2017-01-16] MEDS: HYDROCORTISONE SOD SUCCINATE 100 MG VIAL IV PUSH SCH ×2 (05:06→21:13)
--- NOTE | 2017-01-16 07:34 | PD.CARD.PN ---
Subjective Subjective Remarks Doing much better. Remains in NSR. RUE hematoma continues to improve. Denies CP or SOB. Objective Medications Current Medications Medications (Trade) Dose Ordered Sig/Richard Route Start Time Stop Time Status Last Admin (Lipitor) 20 mg HS PO 01/12/17 21:00 01/15/17 21:35 (NS Flush) 2 ml UNSCH PRN IV FLUSH 01/12/17 17:45 (NS Flush) 2 ml BID IV FLUSH 01/12/17 21:00 01/15/17 21:33 (Tylenol) 650 mg Q4H PRN PO 01/12/17 17:45 01/15/17 13:44 (Zofran Inj) 4 mg Q6H PRN IVP 01/12/17 17:45 (Tylenol) 650 mg Q6H PRN PO 01/12/17 17:45 01/12/17 21:19 (Narcan Inj) 0.4 mg UNSCH PRN IV PUSH 01/12/17 17:45 (Milk Of Magnesia Liq) 30 ml Q12H PRN PO 01/12/17 17:45 (Pill Splitter) 1 ea UNSCH PRN OTHER 01/12/17 18:30 (Florinef) 0.05 mg MoWeFr PO 01/14/17 12:00 01/14/17 11:49 (Protonix) 20 mg BID PO 01/13/17 21:00 01/15/17 21:33 (Flexeril) 5 mg Q8HR PRN PO 01/14/17 08:00 01/16/17 03:38 (Percocet 5-325 Mg) 1 tab Q6H PRN PO 01/14/17 12:00 01/16/17 03:38 (Coumadin) 3 mg DAILY@16 PO 01/14/17 16:00 01/15/17 16:54 (SoluCORTEF INJ) 50 mg Q8HR IV PUSH 01/15/17 22:00 01/16/17 05:06 (Coreg) 12.5 mg Q12HR PO 01/15/17 21:00 01/15/17 21:35 Vital Signs / I&O Vital Signs Date Time Temp Pulse Resp B/P (MAP) Pulse Ox O2 Delivery O2 Flow Rate FiO2 01/16/17 07:00 94 Room Air 01/16/17 06:00 84 01/16/17 04:00 62 01/16/17 04:00 97.8 62 18 153/83 (106) 95 01/16/17 02:00 84 01/16/17 00:00 97.3 70 19 147/80 (102) 95 01/16/17 00:00 70 01/15/17 22:00 66 01/15/17 20:00 70 01/15/17 20:00 98.3 70 16 109/59 (76) 93 01/15/17 19:00 93 Room Air 01/15/17 18:00 87 01/15/17 16:00 98.1 79 18 127/76 (93) 95 01/15/17 16:00 76 01/15/17 14:00 70 01/15/17 12:00 78 01/15/17 12:00 97.9 84 20 127/79 (95) 94 01/15/17 10:00 61 01/15/17 08:00 68 01/15/17 08:00 97.7 68 14 150/82 (104) 96 I/O 01/15/17 01/15/17 01/15/17 01/16/17 01/16/17 01/16/17 07:00 15:00 23:00 07:00 15:00 23:00 Intake Total 195 ml 650 ml 240 ml Output Total 4 ml Balance 195 ml 646 ml 240 ml Intake Oral 120 ml 400 ml 240 ml IV Total 75 ml 250 ml Output Urine Total 3 ml Stool Total 1 ml # Voids 2 # Bowel Movements 0 Physical Exam VSS, afebrile. No JVD Lung: CTA Heart: RRR, systolic murmur. Ext; Warm and well perfused. RUE hematoma improving. Neuro: Non-focal Laboratory Laboratory Tests Test 01/12/17 14:40 01/12/17 16:50 01/13/17 07:48 01/13/17 11:57 Keratocytes OCC Blood Urea Nitrogen 31 MG/DL Creatinine 1.23 MG/DL Random Glucose 137 MG/DL Calcium Level 8.4 MG/DL Magnesium Level 2.4 MG/DL Sodium Level 135 MEQ/L Potassium Level 4.2 MEQ/L Chloride Level 100 MEQ/L Carbon Dioxide Level 25.8 MEQ/L Total Creatine Kinase 158 U/L Urine Color YELLOW Urine Turbidity CLEAR Urine pH 5.5 Urine Specific [place] 1.016 Urine Protein NEG mg/dL Urine Glucose (UA) NEG mg/dL Urine Ketones NEG mg/dL Urine Occult Blood NEG Urine Nitrite NEG Urine Bilirubin NEG Urine Urobilinogen LESS THAN 2.0 MG/DL Urine Leukocyte Esterase NEG Urine WBC 1 /hpf Urine Hyaline Casts 3 /lpf Microscopic Urinalysis Comment CULT NOT INDICATED Neutrophils (%) (Auto) 78.7 % Lymphocytes (%) (Auto) 12.1 % Monocytes (%) (Auto) 8.6 % Eosinophils (%) (Auto) 0.4 % Basophils (%) (Auto) 0.2 % Neutrophils # (Auto) 8.4 TH/MM3 Lymphocytes # (Auto) 1.3 TH/MM3 Monocytes # (Auto) 0.9 TH/MM3 Eosinophils # (Auto) 0.0 TH/MM3 Basophils # (Auto) 0.0 TH/MM3 CBC Comment AUTO DIFF Differential Total Cells Counted 100 Neutrophils % (Manual) 85 % Band Neutrophils % 2 % Lymphocytes % 9 % Monocytes % 4 % Neutrophils # (Manual) 9.2 TH/MM3 Nucleated Red Blood Cells 1 /100 WBC Differential Comment FINAL DIFF MANUAL Platelet Estimate NORMAL Platelet Morphology Comment NORMAL Ovalocytes 1+ Kimber Cells 1+ Acanthocytes 1+ Stool C. difficile Toxin (PCR) NEGATIVE Stl C. difficile Toxin Epiderm 027 PRESUMPTIVE NEGATIVE Test 01/14/17 06:45 01/14/17 18:39 01/15/17 04:35 Blood Urea Nitrogen 16 MG/DL 18 MG/DL Creatinine 0.80 MG/DL 0.72 MG/DL Random Glucose 68 MG/DL 101 MG/DL Total Protein 5.9 GM/DL Albumin 2.8 GM/DL Calcium Level 8.5 MG/DL 8.0 MG/DL Alkaline Phosphatase 61 U/L Aspartate Amino Transf (AST/SGOT) 24 U/L Alanine Aminotransferase (ALT/SGPT) 22 U/L Total Bilirubin 2.0 MG/DL Sodium Level 138 MEQ/L 136 MEQ/L Potassium Level 4.1 MEQ/L 4.3 MEQ/L Chloride Level 105 MEQ/L 103 MEQ/L Carbon Dioxide Level 24.8 MEQ/L 24.6 MEQ/L Troponin I 0.03 NG/ML White Blood Count 7.8 TH/MM3 Red Blood Count 4.07 MIL/MM3 Hemoglobin 12.3 GM/DL Hematocrit 36.0 % Mean Corpuscular Volume 88.3 FL Mean Corpuscular Hemoglobin 30.3 PG Mean Corpuscular Hemoglobin Concent 34.3 % Red Cell Distribution Width 18.3 % Platelet Count 212 TH/MM3 Mean Platelet Volume 7.1 FL Prothrombin Time 12.5 SEC Prothromb Time International Ratio 1.1 RATIO Anion Gap 8 MEQ/L Estimat Glomerular Filtration Rate 78 ML/MIN Assessment and Plan Problem List: (1) Paroxysmal atrial fibrillation with rapid ventricular response ICD Codes: I48.0 - Paroxysmal atrial fibrillation Plan: NSR. Adjust warfarin for INR 2.0 - 3.0. (2) Cardiac resynchronization therapy defibrillator (WRAPPER LAYER AND EXAMINER SOFT WORK-D) in place ICD Codes: Z95.810 - Presence of cardiac resynchronization therapy defibrillator Status: Chronic (3) Symptomatic hypotension ICD Codes: I95.89 - Other hypotension Plan: Resolved. (4) Weakness ICD Codes: R53.1 - Weakness Status: Acute Plan: Improving. 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 Assessment and Plan BP improved today. Will restart her Ramipril at 5 mg daily as tolerated. Increase OOB, PT activity. INR subtherapeutic. Adjust warfarin dose. Lovenox 40 mg daily. Continue supportive care. Following. Code Status Full Discussed Condition With Patient Armand Lr MD Jan 16, 2017 07:34
[2017-01-16] MEDS: SODIUM CHLORIDE 0.9% FLUSH 10 ML FLUSH IV FLUSH SCH ×2 (09:00→21:12)
[2017-01-16] MEDS: ENOXAPARIN SODIUM 40 MG/0.4 ML SYRINGE SQ SCH (09:01)
[2017-01-16] MEDS: CARVEDILOL 12.5 MG TAB PO SCH ×2 (09:01→21:13)
[2017-01-16] MEDS: RAMIPRIL 5 MG CAP PO SCH (09:01)
[2017-01-16] MEDS: PANTOPRAZOLE SOD 20 MG DELAYED RELEASE TAB PO SCH ×2 (09:01→21:13)
--- NOTE | 2017-01-16 14:14 | HHI.PR ---
Subjective Remarks patient doing much better and looking and feeling better up and ambulated with PT today good po Objective Vitals Vital Signs Date Time Temp Pulse Resp B/P (MAP) Pulse Ox O2 Delivery O2 Flow Rate FiO2 01/16/17 12:00 98.1 67 16 149/83 (105) 97 01/16/17 12:00 67 01/16/17 10:00 71 01/16/17 08:00 97.0 68 14 161/79 (106) 96 01/16/17 08:00 74 01/16/17 07:00 94 Room Air 01/16/17 06:00 84 01/16/17 04:00 62 01/16/17 04:00 97.8 62 18 153/83 (106) 95 01/16/17 02:00 84 01/16/17 00:00 97.3 70 19 147/80 (102) 95 01/16/17 00:00 70 01/15/17 22:00 66 01/15/17 20:00 70 01/15/17 20:00 98.3 70 16 109/59 (76) 93 01/15/17 19:00 93 Room Air 01/15/17 18:00 87 01/15/17 16:00 98.1 79 18 127/76 (93) 95 01/15/17 16:00 76 I/O 01/15/17 01/15/17 01/15/17 01/16/17 01/16/17 01/16/17 07:00 15:00 23:00 07:00 15:00 23:00 Intake Total 195 ml 650 ml 240 ml Output Total 4 ml Balance 195 ml 646 ml 240 ml Intake Oral 120 ml 400 ml 240 ml IV Total 75 ml 250 ml Output Urine Total 3 ml Stool Total 1 ml # Voids 2 # Bowel Movements 0 Result Diagram: 01/15/17 0435 01/15/17 0435 Imaging Last Impressions Upper Extremity Ultrasound 01/13/17 0000 Signed Impressions: Service Date/Time: January 17:52 - CONCLUSION: 4.4 cm hypoechoic structure involving the superficial subcutaneous tissues is nonspecific in its appearance but likely relates to hematoma. A phlegmon that has yet to liquefy into an abscess can have a similar appearance. Gee Kimball Jr., MD Upper Extremity CT 01/13/17 0000 Signed Impressions: Service Date/Time: January 14:53 - CONCLUSION: 1. There is an ovoid hyperdense mass measuring up to 4.7 cm in the mid posterior forearm within the extensor musculature. Given the appearance and history of anti-coagulation, a hematoma is the most likely etiology. A solid mass or infectious process cannot completely be excluded based on imaging. Ultrasound may be able to further characterize whether this is a solid mass, if needed. If hematoma fits with the clinical picture, consider clinical followup to confirm resolution. 2. Diffuse subcutaneous edema of the forearm without fracture. Tru Sepulveda MD Shoulder X-Ray 01/13/17 0000 Signed Impressions: Service Date/Time: January 14:37 - CONCLUSION: 1. No acute right shoulder abnormality is identified. However, there are changes indicative of chronic rotator cuff tear. 2. 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 Tru Sepulveda MD Radius/Ulna X-Ray 01/12/17 1434 Signed Impressions: Service Date/Time: Thursday, January 12, 2017 15:08 - CONCLUSION: Negative for fracture. Sina Davis MD FACR Chest X-Ray 01/12/17 1434 Signed Impressions: Service Date/Time: Thursday, January 12, 2017 15:06 - CONCLUSION: Negative for infiltrate or failure. Mild compensated cardiomegaly Sina Davis MD FACR Objective Remarks awake and alert, oriented x 3 skin- right shoulder area- faint bruise neck supple no nuchal rigidity anicteric lungs- no rales regular rhythm abdomen- soft good bowel sounds Right UE- swelling and erythema- continues to improved, with superficial wound with induration forearm-dry LE- no edema,. no calf swelling or tenderness LUE- able to raise with no difficulty good hand mangle tender bilateral A/P Problem List: (1) Symptomatic hypotension ICD Code: I95.89 - Other hypotension (2) Near syncope ICD Code: R55 - Syncope and collapse (3) Coagulopathy ICD Code: D68.9 - Coagulation defect, unspecified Assessment and Plan 81-year-old female with adrenal insufficiency Symptomatic hypotension- improved History of adrenal insufficiency dehydration component- elevated BUN/crea- received IVF- off IV continue on Hydrocotisone IV at 50 mg q 8- taper down to 25 mg po q 8 continue Flourinef History of atrial fibrillation S/P PM continue to monitor- BP improved MAXIMILIANO resumed today Coreg restarted at 12.5 mg pob id continue coumadin-H and H stable overlap with Lovenox Diarrhea- - resolved Coumadin induced coagulopathy- INR down Right arm Swelling with hematoma on CT + heamtoma on forearm- - swelling decreased, restarted coumdin- ff INR + Lovenox Acute renal failure- improved heplock and monitor Recent UTI- 01/06- E faecalis- treated with clindamycin repeat UA negative DC Clindamycin Right old rotator cuff injury on CT on discussion with - was seen by Dr. Willard in the past for this- no surgery due to age PT consult - teach to do range of motion- passive- states they go to Sports medicine 2-3x a week change Tramadol to Percocet Flexeril for spasms Generalized weakness- able to get her up tp chair- limited by pain PT consult to treat and eval Consult pillowcase sewer for possible discharge disposition to SNF- patient and refused- states [facility] DVT prophylaxis: Bilateral SCDs PT daily OUt of bed to chair daily Dawit Duran MD Jan 16, 2017 14:14
[2017-01-16] MEDS ORDERED: WARFARIN SOD 4 MG TAB PO SCH (16:00)
[2017-01-16] MEDS: ATORVASTATIN 20 MG TAB PO SCH (21:13)
[2017-01-17] VITALS (7 sets, daily range): BP systolic 136–144; BP diastolic 69–76; PULSE 64–69; RESP 20–24; TEMP 97.3–98; O2SAT 97–98
[2017-01-17] MEDS: HYDROCORTISONE SOD SUCCINATE 100 MG VIAL IV PUSH SCH ×2 (05:52→14:00)
[2017-01-17] MEDS: ENOXAPARIN SODIUM 40 MG/0.4 ML SYRINGE SQ SCH (08:00)
[2017-01-17] MEDS: PANTOPRAZOLE SOD 20 MG DELAYED RELEASE TAB PO SCH (09:00)
[2017-01-17] MEDS ORDERED: CARVEDILOL 12.5 MG TAB PO SCH (09:00)
[2017-01-17] MEDS: SODIUM CHLORIDE 0.9% FLUSH 10 ML FLUSH IV FLUSH SCH (09:00)
[2017-01-17] MEDS: RAMIPRIL 5 MG CAP PO SCH (09:00)
[2017-01-17] MEDS: CYCLOBENZAPRINE HCL 10 MG TAB PO PRN (11:17)
[2017-01-17] MEDS: oxyCODONE/ACETAMINOPHEN 5 MG/325 MG TAB PO PRN (11:17)
[2017-01-17 11:31] LABS: INTERNATIONAL NORMALIZED RATIO 1.7 RATIO; PROTHROMBIN TIME - PATIENT 19.4 SEC (9.8-11.6)
[2017-01-17] MEDS: FLUDROCORTISONE ACETATE 0.1 MG TAB PO SCH (12:00)
--- NOTE | 2017-01-17 13:15 | HHI.PR ---
Subjective Remarks Follow-up symptomatic hypotension/adrenal insufficiency 01/17/17-patient seen and examined, currently normotensive BP, denies any chest pain or shortness of breath. Patient has been is requesting discharge home without home health care. Does not want any discharge to SNF either. Appetite without any complaint of nausea and vomiting. Currently afebrile. INR 1.7 Objective Vitals Vital Signs Date Time Temp Pulse Resp B/P (MAP) Pulse Ox O2 Delivery O2 Flow Rate FiO2 01/17/17 06:00 67 01/17/17 05:00 69 01/17/17 04:00 98.0 65 20 136/69 (91) 97 01/17/17 04:00 65 01/17/17 03:00 65 01/17/17 00:00 97.3 64 24 144/76 (98) 98 01/17/17 00:00 64 01/16/17 22:00 60 01/16/17 20:00 97.7 64 14 124/66 (85) 92 01/16/17 20:00 64 01/16/17 19:00 97 Room Air 01/16/17 18:00 82 01/16/17 16:00 81 01/16/17 16:00 97.9 62 16 150/73 (98) 94 01/16/17 14:00 78 I/O 01/16/17 01/16/17 01/16/17 01/17/17 01/17/17 01/17/17 06:59 14:59 22:59 06:59 14:59 22:59 Intake Total 240 ml 450 ml 240 ml Output Total 3 ml 250 ml Balance 240 ml 447 ml -10 ml Intake Oral 240 ml 450 ml 240 ml Output Urine Total 3 ml 250 ml # Voids 2 # Bowel Movements 0 0 0 Result Diagram: 01/15/17 0435 01/15/17 0435 Imaging Last Impressions Upper Extremity Ultrasound 01/13/17 0000 Signed Impressions: Service Date/Time: January 17:52 - CONCLUSION: 4.4 cm hypoechoic structure involving the superficial subcutaneous tissues is nonspecific in its appearance but likely relates to hematoma. A phlegmon that has yet to liquefy into an abscess can have a similar appearance. Gee Kimball Jr., MD Upper Extremity CT 01/13/17 0000 Signed Impressions: Service Date/Time: January 14:53 - CONCLUSION: 1. There is an ovoid hyperdense mass measuring up to 4.7 cm in the mid posterior forearm within the extensor musculature. Given the appearance and history of anti-coagulation, a hematoma is the most likely etiology. A solid mass or infectious process cannot completely be excluded based on imaging. Ultrasound may be able to further characterize whether this is a solid mass, if needed. If hematoma fits with the clinical picture, consider clinical followup to confirm resolution. 2. Diffuse subcutaneous edema of the forearm without fracture. Tru Sepulveda MD Shoulder X-Ray 01/13/17 0000 Signed Impressions: Service Date/Time: January 14:37 - CONCLUSION: 1. No acute right shoulder abnormality is identified. However, there are changes indicative of chronic rotator cuff tear. 2. 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 Tru Sepulveda MD Radius/Ulna X-Ray 01/12/17 1434 Signed Impressions: Service Date/Time: Thursday, January 12, 2017 15:08 - CONCLUSION: Negative for fracture. Sina Davis MD FACR Chest X-Ray 01/12/17 1434 Signed Impressions: Service Date/Time: Thursday, January 12, 2017 15:06 - CONCLUSION: Negative for infiltrate or failure. Mild compensated cardiomegaly Sina Davis MD FACR Objective Remarks GENERAL: NAD SKIN: Warm and dry. Hematoma to left upper extremity HEAD: Normocephalic. EYES: No scleral icterus. No injection or drainage. NECK: Supple, trachea midline. No JVD or lymphadenopathy. CARDIOVASCULAR: Irregular Regular rate and rhythm without murmurs, gallops, or rubs. RESPIRATORY: Breath sounds equal bilaterally. No accessory muscle use. GASTROINTESTINAL: Abdomen soft, non-tender, nondistended. MUSCULOSKELETAL: No cyanosis, or edema. BACK: Nontender without obvious deformity. No CVA tenderness. Procedures None A/P Problem List: (1) Symptomatic hypotension ICD Code: I95.89 - Other hypotension (2) Near syncope ICD Code: R55 - Syncope and collapse (3) Coagulopathy ICD Code: D68.9 - Coagulation defect, unspecified (4) Paroxysmal atrial fibrillation with rapid ventricular response ICD Code: I48.0 - Paroxysmal atrial fibrillation Assessment and Plan 81-year-old female with Symptomatic hypotension- improved History of adrenal insufficiency dehydration component- resolved Currently on Solu-Cortef IV 25 mg po q 8, will resume patient's home medication continue Florinef History of atrial fibrillation S/P PM Rate controlled on Coreg 25 mg by mouth twice a day, Coumadin 4 mg as well as Lovenox bridge INR today 1.7 Diarrhea- - resolved Coumadin induced coagulopathy- resolved status post vitamin K on admissions Right arm Swelling with hematoma on CT Improving Acute renal failure- resolved status post IV fluid hydration Recent UTI- 01/06- E faecalis- treated with clindamycin repeat UA negative Completed Clindamycin Right old rotator cuff injury on CT on discussion with - was seen by Dr. Willard in the past for this- no surgery due to age PT consult - teach to do range of motion- passive- states they go to Sports medicine 2-3x a week Currently on Percocet, Flexeril DVT prophylaxis: Coumadin Babak Crandlal MD Jan 17, 2017 13:15
--- NOTE | 2017-01-17 13:19 | HHI.DS ---
Discharge Summary Admission Date Jan 12, 2017 at 17:33 Discharge Date: Jan 17, 2017 Admitting Diagnosis hypotension, right arm contusion (1) Symptomatic hypotension ICD Code: I95.89 - Other hypotension (2) Near syncope ICD Code: R55 - Syncope and collapse (3) Coagulopathy ICD Code: D68.9 - Coagulation defect, unspecified (4) Paroxysmal atrial fibrillation with rapid ventricular response ICD Code: I48.0 - Paroxysmal atrial fibrillation Procedures None Brief History - From Admission 81-year-old female with a history of atrial fibrillation on chronic Coumadin was brought to the ED for evaluation of an acute onset of dizziness which occurred this morning. Patient's states, she almost passed out however did not fell down. While in the ED she was found to have low BP and INR of 5+. She denies any GI bleed or chest pain as well as shortness of breath. 4 days ago, patient fell hitting her right arm in the process causing a contusion CBC/BMP: 01/15/17 0435 01/15/17 0435 Significant Findings Laboratory Tests Test 01/14/17 18:34 01/14/17 18:39 01/15/17 04:35 01/17/17 11:10 Red Cell Distribution Width 17.6 % (11.6-17.2) 18.3 % (11.6-17.2) Random Glucose 117 MG/DL (74-106) Calcium Level 8.4 MG/DL (8.5-10.1) 8.0 MG/DL (8.5-10.1) Estimat Glomerular Filtration Rate 63 ML/MIN (>89) 78 ML/MIN (>89) Prothrombin Time 12.5 SEC (9.8-11.6) 19.4 SEC (9.8-11.6) Imaging Last Impressions Upper Extremity Ultrasound 01/13/17 0000 Signed Impressions: Service Date/Time: January 17:52 - CONCLUSION: 4.4 cm hypoechoic structure involving the superficial subcutaneous tissues is nonspecific in its appearance but likely relates to hematoma. A phlegmon that has yet to liquefy into an abscess can have a similar appearance. Gee Kimball Jr., MD Upper Extremity CT 01/13/17 0000 Signed Impressions: Service Date/Time: January 14:53 - CONCLUSION: 1. There is an ovoid hyperdense mass measuring up to 4.7 cm in the mid posterior forearm within the extensor musculature. Given the appearance and history of anti-coagulation, a hematoma is the most likely etiology. A solid mass or infectious process cannot completely be excluded based on imaging. Ultrasound may be able to further characterize whether this is a solid mass, if needed. If hematoma fits with the clinical picture, consider clinical followup to confirm resolution. 2. Diffuse subcutaneous edema of the forearm without fracture. Tru Sepulveda MD Shoulder X-Ray 01/13/17 0000 Signed Impressions: Service Date/Time: January 14:37 - CONCLUSION: 1. No acute right shoulder abnormality is identified. However, there are changes indicative of chronic rotator cuff tear. 2. 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 Tru Sepulveda MD Radius/Ulna X-Ray 01/12/17 1434 Signed Impressions: Service Date/Time: Thursday, January 12, 2017 15:08 - CONCLUSION: Negative for fracture. Sina Davis MD FACR Chest X-Ray 01/12/17 1434 Signed Impressions: Service Date/Time: Thursday, January 12, 2017 15:06 - CONCLUSION: Negative for infiltrate or failure. Mild compensated cardiomegaly Sina Davis MD FACR PE at Discharge GENERAL: NAD SKIN: Warm and dry. Hematoma to left upper extremity HEAD: Normocephalic. EYES: No scleral icterus. No injection or drainage. NECK: Supple, trachea midline. No JVD or lymphadenopathy. CARDIOVASCULAR: Irregular Regular rate and rhythm without murmurs, gallops, or rubs. RESPIRATORY: Breath sounds equal bilaterally. No accessory muscle use. GASTROINTESTINAL: Abdomen soft, non-tender, nondistended. MUSCULOSKELETAL: No cyanosis, or edema. BACK: Nontender without obvious deformity. No CVA tenderness. Hospital Course Patient initially admitted secondary to symptomatic hypotension for which she was treated with aggressive IV fluid hydration. On admissions patient had coagulopathy and treated with vitamin K with monitor INR. Cardiology was consulted secondary to patient history of atrial fibrillation and were medications were adjusted accordingly with Coreg which was increased to 25 mg by mouth twice a day. Coumadin was restarted however will follow bridge with Lovenox. Prior to discharge INR 1.7 therefore Lovenox was discontinued. Secondary to patient history of adrenal insufficiency she was continued on her Florinef but started on Solu-Cortef which was tapered down prior to discharge and patient's home medication will be restarted upon discharge. Acute renal failure improved with IV fluid hydration. Physical therapy was consulted. PT and GI prophylaxis were provided. Prior to discharge, patient's conditions improved and vitals remained stable. Patient and declines home health care as well as short term rehabilitation admissions Pt Condition on Discharge: Stable Discharge Disposition: Discharge Home Discharge Time: > 30 minutes Discharge Instructions DIET: Follow Instructions for: Heart Healthy Diet Activities you can perform: Regular-No Restrictions Follow up Referrals: Cardiology PCP Follow-up - 1 Week New Medications: Cyclobenzaprine (Flexeril) 10 Mg Tab 5 MG PO Q8HR PRN for SPASM, #30 TAB Ramipril (Ramipril) 5 Mg Cap 5 MG PO DAILY for Blood Pressure Management, #30 CAP Continued Medications: Atorvastatin (Atorvastatin) 20 Mg Tab 20 MG PO HS for Cholesterol Management, #30 TAB 0 Refills Carvedilol (Carvedilol) 25 Mg Tab 25 MG PO BID, #60 TAB 0 Refills Cholecalciferol (D 1000) 1,000 Unit Tab 1000 UNITS PO DAILY Citalopram (Citalopram) 20 Mg Tab 20 MG PO DAILY for Control Depression, #30 TAB 0 Refills Coenzyme Q10 (Ubidecarenone) (Co Q 10) 100 Mg Cap 100 MG PO DAILY Cyanocobalamin (B12) 1,000 Mcg Tab 1000 MCG PO DAILY Flaxseed (Linseed) (Flaxseed Oil Alpine-3) 1,000 Mg Cap 1 CAP PO DAILY Fludrocortisone (Fludrocortisone) 0.1 Mg Tab 0.05 MG PO MoWeFr, #30 TAB 0 Refills Take 1/2 tablet (0.05mg) on Tuesday,Tuesday and Tuesday Hydrocodone-Acetaminophen (Lortab) 5-325 Mg Tab 1 TAB PO Q6H PRN for PAIN, #12 TAB 0 Refills Hydrocortisone (Hydrocortisone) 10 Mg Tab 10 MG PO BID, TAB 0 Refills Take with breakfast and lunch to decrease GI upset Hydrocortisone (Hydrocortisone) 5 Mg Tab 5 MG PO AC DINNER, TAB 0 Refills Take with dinner to decrease GI upset Lactobacillus Acidophilus (Probiotic) 1 Cap Cap 1 CAP PO DAILY for Nutritional Supplement, #90 CAP 0 Refills Magnesium Oxide (Magnesium Oxide) 250 Mg Tab 250 MG PO DAILY, TAB 0 Refills Methylphenidate IR (Ritalin IR) 10 Mg Tab 10 MG PO DAILY, #30 TAB 0 Refills Omeprazole (Omeprazole) 20 Mg Tab 20 MG PO BID, #30 TAB 0 Refills Potassium Chloride ER (Potassium Chloride ER) 10 Meq Cap 10 MEQ PO DAILY for Electrolyte Replacement, #30 CAP 0 Refills Silver Sulfadiazine Topical (Silvadene Topical) 1 % Cream 1 APPLIC TOPICAL DIRECTED for Wound Management, #50 GM 0 Refills Tramadol (Tramadol) 50 Mg Tab 50 MG PO Q6H PRN for PAIN, TAB 0 Refills Warfarin (Coumadin) 3 Mg Tab 3 MG PO TuThSa, TAB 0 Refills Take 1 tablet (3mg) on Tuesday, and Tuesday Warfarin (Coumadin) 4 Mg Tab 4 MG PO SuMoWeFr for Prevent Blood Clot, #30 TAB 0 Refills Take 1 tablet (4mg) on Tuesday,Tuesday,Tuesday and Tuesday Discontinued Medications: Ramipril (Ramipril) 10 Mg Cap 10 MG PO DAILY for Blood Pressure Management, #30 CAP 0 Refills Please change your dosing from twice a day to only once a day. Your BP has been low. Babak Crandall MD Jan 17, 2017 13:19
[2017-01-17] MEDS ORDERED: RAMI5CAP PO (13:22)
[2017-01-17] MEDS ORDERED: CYCL10TA PO (13:22)
== END 2017-01-17 15:30 | disposition home or self-care (01) | DRG 315 ==
LOC: NEPC 13:57 → NEDA 17:33 → NEPGCP 20:00 → N03A 01-14 19:43 → HCIS 01-17 02:13
PROVIDERS: ADMIT Hospitalist; ATTEND Hospitalist
DX: I95.9 Hypotension, unspecified (principal); N17.9 Acute kidney failure, unspecified; I42.9 Cardiomyopathy, unspecified; E27.40 Unspecified adrenocortical insufficiency; E24.0 Pituitary-dependent Cushing's disease; I11.0 Hypertensive heart disease with heart failure; I27.20 Pulmonary hypertension, unspecified; E86.0 Dehydration; I48.0 Paroxysmal atrial fibrillation; I50.32 Chronic diastolic (congestive) heart failure; I47.1 Supraventricular tachycardia; F32.9 Major depressive disorder, single episode, unspecified; L03.113 Cellulitis of right upper limb; I07.1 Rheumatic tricuspid insufficiency; G47.33 Obstructive sleep apnea (adult) (pediatric); H91.90 Unspecified hearing loss, unspecified ear; I25.10 Atherosclerotic heart disease of native coronary artery without angina pectoris; K21.9 Gastro-esophageal reflux disease without esophagitis; Z96.641 Presence of right artificial hip joint; M19.90 Unspecified osteoarthritis, unspecified site; T45.515A Adverse effect of anticoagulants, initial encounter; R29.6 Repeated falls; J44.9 Chronic obstructive pulmonary disease, unspecified; W01.0XXA Fall on same level from slipping, tripping and stumbling without subsequent striking against object, initial encounter; F41.9 Anxiety disorder, unspecified; S50.11XA Contusion of right forearm, initial encounter; R19.7 Diarrhea, unspecified; Z79.01 Long term (current) use of anticoagulants; Z95.810 Presence of automatic (implantable) cardiac defibrillator; Z95.3 Presence of xenogenic heart valve; Z86.73 Personal history of transient ischemic attack (TIA), and cerebral infarction without residual deficits; Z95.1 Presence of aortocoronary bypass graft
CPT/HCPCS: 36415; 71010; 73030; 73090; 73200; 76882; 76937; 80048; 80053; 81001; 82550; 83735; 84484; 85007; 85025; 85027; 85610; 87493; 93005; 96360; J1650; J1720; J7030; J7050; P9612

== ENCOUNTER → 2017-01-12 | Outpatient (CLI) | payer MEDICARE ==
[~2017-01-12] MED LIST changes: +CEPH-460 PO; +CLIN300C5 PO; +CYCL10TA PO; +MEDR4PAK PO; +RAMI5CAP PO; +SILV1CRE20 TOPICAL; +TRAM50TA PO
[2017-01-12 11:56] LABS: INTERNATIONAL NORMALIZED RATIO 5.9 RATIO; PROTHROMBIN TIME - PATIENT 70.4 SEC (9.8-11.6)
== END ==
LOC: CLAB 11:10
PROVIDERS: ATTEND Internal Medicine Interventional Cardiology
DX: G45.9 Transient cerebral ischemic attack, unspecified (principal); Z79.01 Long term (current) use of anticoagulants
CPT/HCPCS: 36415; 85610

== ENCOUNTER → 2017-02-07 | Outpatient (CLI) | payer MEDICARE ==
[~2017-02-07] MED LIST changes: -CEPH-460 PO; +CYCL10TA PO; -MEDR4PAK PO; -RAMI10CA PO; +RAMI5CAP PO; +SILV1CRE20 TOPICAL; +TRAM50TA PO; -ZOFR4TAB3 SL
[2017-02-07 09:18] LABS: HEMATOCRIT 36.8 % (35.0-46.0); MEAN CELL VOLUME 89.7 FL (80.0-100.0); MEAN CORPUSCULAR HEMOGLOBIN 29.9 PG (27.0-34.0); MEAN CORPUSCULAR HGB CONC 33.3 % (32.0-36.0); PLATELET COUNT 214 TH/MM3 (150-450); RED BLOOD COUNT 4.09 MIL/MM3 (4.00-5.30); RED CELL DISTRIBUTION WIDTH 17.6 % (11.6-17.2); REVIEW FLAG FINAL; WHITE BLOOD COUNT 6.1 TH/MM3 (4.0-11.0)
[2017-02-07 09:57] LABS: BICARBONATE 28.5 MEQ/L (21.0-32.0); POTASSIUM 3.9 MEQ/L (3.5-5.1)
[2017-02-07 10:04] LABS: HDL CHOLESTEROL 80.9 MG/DL (40.0-60.0)
== END ==
LOC: CLAB 08:00
PROVIDERS: ATTEND Internal Medicine Interventional Cardiology
DX: I35.1 Nonrheumatic aortic (valve) insufficiency (principal); I50.32 Chronic diastolic (congestive) heart failure; I27.20 Pulmonary hypertension, unspecified; R06.02 Shortness of breath
CPT/HCPCS: 36415; 80048; 80061; 84450; 84460; 85027

== ENCOUNTER → 2017-02-25 | Outpatient (CLI) | payer MEDICARE | LOC: HRSP 10:44 | PROVIDERS: ATTEND Internal Medicine | DX: R06.02 Shortness of breath (principal) | CPT/HCPCS: 94060; 94620; 94726; 94729 ==

== ENCOUNTER → 2017-03-11 | Outpatient (CLI) | payer MEDICARE ==
[2017-03-11 08:21] LABS: HEMATOCRIT 38.7 % (35.0-46.0); HEMOGLOBIN 12.9 GM/DL (11.6-15.3); MEAN CELL VOLUME 88.7 FL (80.0-100.0); MEAN CORPUSCULAR HEMOGLOBIN 29.6 PG (27.0-34.0); MEAN CORPUSCULAR HGB CONC 33.4 % (32.0-36.0); MEAN PLATELET VOLUME 7.5 FL (7.0-11.0); PLATELET COUNT 210 TH/MM3 (150-450); RED BLOOD COUNT 4.36 MIL/MM3 (4.00-5.30); RED CELL DISTRIBUTION WIDTH 18.1 % (11.6-17.2); WHITE BLOOD COUNT 6.3 TH/MM3 (4.0-11.0)
[2017-03-11 08:39] LABS: ALBUMIN 3.8 GM/DL (3.4-5.0); AST (GOT) 20 U/L (15-37); BICARBONATE 29.7 MEQ/L (21.0-32.0); BLOOD UREA NITROGEN 15 MG/DL (7-18); CALCIUM 9.4 MG/DL (8.5-10.1); CHLORIDE 105 MEQ/L (98-107); CREATININE 1.04 MG/DL (0.50-1.00); GLOMERULAR FILTRATION RATE 51 ML/MIN (>89); GLUCOSE,FASTING 75 MG/DL (74-99); MAGNESIUM 2.1 MG/DL (1.5-2.5); SODIUM (NA) 142 MEQ/L (136-145)
[2017-03-11 08:40] LABS: ALT (GPT) 19 U/L (10-53); CHOLESTEROL 130 MG/DL (120-200); TRIGLYCERIDES 123 MG/DL (42-150)
[2017-03-11 08:49] LABS: ALKALINE PHOSPHATASE 69 U/L (45-117); CHOLESTEROL/ HDL RATIO 1.68 RATIO; FREE T4 0.91 NG/DL (0.76-1.46); LDL CHOLESTEROL 28 MG/DL (0-99)
== END ==
LOC: CLAB 07:55
PROVIDERS: ATTEND Family Medicine
DX: G45.9 Transient cerebral ischemic attack, unspecified (principal); H34.00 Transient retinal artery occlusion, unspecified eye; M79.2 Neuralgia and neuritis, unspecified; I42.8 Other cardiomyopathies; I10 Essential (primary) hypertension; E27.1 Primary adrenocortical insufficiency; Z95.2 Presence of prosthetic heart valve
CPT/HCPCS: 36415; 80053; 80061; 83735; 84439; 84443; 85027

== ENCOUNTER → 2017-04-19 | Outpatient (CLI) | payer MEDICARE | LOC: CLAB 09:06 | PROVIDERS: ATTEND Internal Medicine Interventional Cardiology | DX: I35.0 Nonrheumatic aortic (valve) stenosis (principal); R06.02 Shortness of breath; I42.0 Dilated cardiomyopathy; I50.32 Chronic diastolic (congestive) heart failure | CPT/HCPCS: 36415; 83880 ==

== ENCOUNTER → 2017-05-09 | Outpatient (CLI) | payer MEDICARE ==
[2017-05-09 08:46] LABS: HEMATOCRIT 37.6 % (35.0-46.0); HEMOGLOBIN 12.5 GM/DL (11.6-15.3); MEAN CELL VOLUME 84.7 FL (80.0-100.0); MEAN CORPUSCULAR HEMOGLOBIN 28.2 PG (27.0-34.0); MEAN CORPUSCULAR HGB CONC 33.3 % (32.0-36.0); MEAN PLATELET VOLUME 7.2 FL (7.0-11.0); PLATELET COUNT 190 TH/MM3 (150-450); RED BLOOD COUNT 4.44 MIL/MM3 (4.00-5.30); RED CELL DISTRIBUTION WIDTH 18.7 % (11.6-17.2); WHITE BLOOD COUNT 6.9 TH/MM3 (4.0-11.0)
[2017-05-09 08:56] LABS: INTERNATIONAL NORMALIZED RATIO 2.3 RATIO; PROTHROMBIN TIME - PATIENT 22.8 SEC (9.8-11.6)
[2017-05-09 09:41] LABS: BICARBONATE 30.4 MEQ/L (21.0-32.0); CALCIUM 8.7 MG/DL (8.5-10.1); CREATININE 1.18 MG/DL (0.50-1.00)
== END ==
LOC: CLAB 08:09
PROVIDERS: ATTEND Internal Medicine Interventional Cardiology
DX: I35.0 Nonrheumatic aortic (valve) stenosis (principal); I42.0 Dilated cardiomyopathy; R06.02 Shortness of breath; I50.32 Chronic diastolic (congestive) heart failure
CPT/HCPCS: 36415; 80048; 85027; 85610

== ENCOUNTER 2017-06-08 07:14 | Emergency (ER) | payer MEDICARE ==
[~2017-06-08] VITALS: Ht 160 cm; Wt 66.0 kg
[2017-06-08 07:16] VITALS: BP 158/77; PULSE 59; RESP 16; TEMP 97.6; O2SAT 98
[2017-06-08 07:24] VITALS: BP 156/75; PULSE 69; O2SAT 97
--- NOTE | 2017-06-08 07:26 | PD ---
HPI Chief Complaint: Headache Time Seen by Provider: 07:22 Travel History International Travel<30 days: No Contact w/Intl Traveler<30days: No Traveled to known affect area: No History of Present Illness HPI Complaint of headache, generalized, but when it starts to starts mostly in the frontal area. Nonradiating. Currently states an 8 out of 10, patient has an appointment tomorrow with ear nose and throat for sinus surgery, states that she has sinus blockage. And was wondering if perhaps this was something that would cause her headaches Allergies see above as there are many Past medical history significant for cataract surgery bilaterally pituitary tumor, migraine, AAA, aortic valve replacement, pacemaker, AAA a sending repair on Coumadin, pacemaker defibrillator, atrial fibrillation, hypertension, appendectomy cholecystectomy GERD hysterectomy kidney stone, arthritis, cervical fusion PFSH Past Medical History Hx Anticoagulant Therapy: Yes (COUMADIN) AAA: Yes (ASCENDING AORTIC ANEURSYM) Anemia: Yes Arthritis: Yes Asthma: No Atrial Fibrillation: Yes Autoimmune Disease: No Blood Disorders: No Anxiety: No Depression: No Heart Rhythm Problems: No Cancer: No Cardiac Catheterization: Yes (AVR; AORTIC ROOT ANEURYSM REPAIR) Cardiovascular Problems: Yes High Cholesterol: Yes Chemotherapy: No Chest Pain: No Congestive Heart Failure: No COPD: No Cerebrovascular Accident: No Coronary Artery Disease: Yes Diabetes: No Diminished Hearing: Yes Endocrine: No Gastrointestinal Disorders: Yes (HEMHORROIDS) GERD: Yes Glaucoma: No Genitourinary: Yes Headaches: Yes Hepatitis: No Hiatal Hernia: No Hypertension: Yes Immune Disorder: No Implanted Vascular Access Dvce: Yes Kidney Stones: Yes Musculoskeletal: Yes Neurologic: Yes Psychiatric: No Reproductive: No Respiratory: Yes (uses cpap at home) Integumentary: Yes (shingles at this time) Immunizations Current: Yes Migraines: Yes Myocardial Infarction: No Radiation Therapy: No Renal Failure: Yes (ARF, STENT) Seizures: No Sleep Apnea: Yes Thyroid Disease: No PNEUMOCCOCAL Vaccine (Year): 2010 Menopausal: Yes : 2 Para: 2 Ovarian Cysts: Yes Past Surgical History Abdominal Aneurysm Repair: Yes (ASCENDING AORTA REPAIR 2005) Abdominal Surgery: Yes AICD: Yes Appendectomy: Yes Arteriovenous Shunt: No Body Medical Devices: AORTIC VALVE REPLACEMENT Cardiac Surgery: Yes (aortic valve, pacemaker placement) Cholecystectomy: Yes Coronary Artery Bypass Graft: Yes Ear Surgery: No Endocrine Surgery: Yes (SHASHI ADRENALS REMOVED-OCTOBER 01, 2013) Eye Surgery: Yes (CATARACT SX BILATERAL) Genitourinary Surgery: No Gynecologic Surgery: Yes (hysterectomy) Hysterectomy: Yes Insulin Pump: No Joint Replacement: Yes (R HIP) Neurologic Surgery: Yes (brain for tumor) Oral Surgery: No Pacemaker: Yes Thoracic Surgery: Yes (2005) Valve Replacement: Yes (AORTIC VALVE REPLACEMENT ) Other Surgery: Yes (CERVICAL FUCSION, CHOLESTECTOMY, APPENDIX, HYSTERECTOMY, ANEURYSM REPLAC. .) Social History Alcohol Use: No Tobacco Use: No Substance Use: No Allergies-Medications (Allergen,Severity, Reaction): Coded Allergies: MRI PRECAUTION (Verified Adverse Reaction, Severe, NON COMPATIBLE PACEMAKER 11/13/15 LRS, 06/08/17) Uncoded Allergies: no mri (Adverse Reaction, Severe, pacemaker, 11/13/15) pacemaker in place Reported Meds & Prescriptions Reported Meds & Active Scripts Active Ramipril 5 Mg Cap 5 Mg PO DAILY Reported Centrum (Multiple Vitamins W/ Minerals) 1 Chew 1 Tab CHEW DAILY Zinc Gluconate 50 Mg Tab 50 Mg PO DAILY Furosemide 20 Mg Tab 20 Mg PO DAILY D 1000 (Cholecalciferol) 1,000 Unit Tab 1,000 Units PO DAILY Coumadin (Warfarin) 4 Mg Tab 4 Mg PO SUMOWEFR Take 1 tablet (4mg) on Tuesday,Tuesday,Tuesday and Tuesday Coumadin (Warfarin) 3 Mg Tab 3 Mg PO TUTHSA Take 1 tablet (3mg) on Tuesday, and Tuesday Hydrocortisone 5 Mg Tab 5 Mg PO AC DINNER Take with dinner to decrease GI upset Hydrocortisone 10 Mg Tab 10 Mg PO BID Take with breakfast and lunch to decrease GI upset Citalopram (Citalopram Hydrobromide) 20 Mg Tab 20 Mg PO DAILY B12 (Cyanocobalamin) 1,000 Mcg Tab 1,000 Mcg PO DAILY Potassium Chloride ER (Potassium Chloride) 10 Meq Cap 10 Meq PO DAILY Ritalin IR (Methylphenidate HCl) 10 Mg Tab 10 Mg PO DAILY Omeprazole 20 Mg Tab 20 Mg PO BID Magnesium Oxide 250 Mg Tab 250 Mg PO DAILY Probiotic (Lactobacillus Acidophilus) 1 Cap Cap 1 Cap PO DAILY Fludrocortisone (Fludrocortisone Acetate) 0.1 Mg Tab 0.05 Mg PO MOWEFR Take 1/2 tablet (0.05mg) on Tuesday,Tuesday and Tuesday Flaxseed Oil Moffat-3 (Flaxseed (Linseed)) 1,000 Mg Cap 1 Cap PO DAILY Carvedilol 25 Mg Tab 25 Mg PO BID Atorvastatin (Atorvastatin Calcium) 20 Mg Tab 20 Mg PO HS Co Q 10 (Coenzyme Q10 (Ubidecarenone)) 100 Mg Cap 100 Mg PO DAILY Review of Systems General / Constitutional: No: Fever Eyes: No: Visual changes HENT: Positive: Headaches Cardiovascular: No: Chest Pain or Discomfort Respiratory: No: Shortness of Breath Gastrointestinal: No: Abdominal Pain Genitourinary: No: Dysuria Musculoskeletal: No: Pain Skin: No Rash Neurologic: No: Weakness Psychiatric: No: Depression Endocrine: No: Polydipsia Hematologic/Lymphatic: No: Easy Bruising Physical Exam Narrative GENERAL: SKIN: Warm and dry. HEAD: Atraumatic. Normocephalic. EYES: Pupils equal and round. No scleral icterus. No injection or drainage. ENT: No nasal bleeding or discharge. Mucous membranes pink and moist. NECK: Trachea midline. No JVD. Full range of motion without any tenderness to palpation of midline, and also full range of motion left right down and rotary without difficulty negative Kernig sign negative Brudzinski sign CARDIOVASCULAR: Regular rate and rhythm. RESPIRATORY: No accessory muscle use. Clear to auscultation. Breath sounds equal bilaterally. GASTROINTESTINAL: Abdomen soft, non-tender, nondistended. MUSCULOSKELETAL: Extremities without clubbing, cyanosis, or edema. No obvious deformities. NEUROLOGICAL: Awake and alert. No obvious cranial nerve deficits. Motor grossly within normal limits. Five out of 5 muscle strength in the arms and legs. Normal speech. PSYCHIATRIC: Appropriate mood and affect; insight and judgment normal. Data Data Last Documented VS Vital Signs Date Time Temp Pulse Resp B/P (MAP) Pulse Ox O2 Delivery O2 Flow Rate FiO2 06/08/17 07:24 69 156/75 (102) 97 Room Air 06/08/17 07:16 97[address] Brain W/O Iv Contrast(Rout) (06/08/17 07:35) Ct Cerv Spine W/O Contrast (06/08/17 07:35) Morphine Inj (Morphine Inj) (06/08/17 07:45) Ondansetron Inj (Zofran Inj) (06/08/17 07:45) Radiology Film Requests (06/08/17 ) Ketorolac Inj (Toradol Inj) (06/08/17 09:45) [place] Medical Decision Making Medical Screen Exam Complete: Yes Emergency Medical Condition: Yes Medical Record Reviewed: Yes Differential Diagnosis Intracranial hemorrhage versus tension headache versus sinus headache versus sinusitis versus mastoiditis versus cervical dislocation/subluxation Narrative Course As of on 91 CT head has been read by radiologist and per report there is no focal or acute intracranial hemorrhage, stable bilateral cortical atrophy and chronic white matter changes, chronic pansinusitis noted. Cervical spine CT has not been read yet 1025 CT neck was read and reported online by radiologist as the following diffuse severe degenerative changes throughout the cervical spine including multilevel subluxations neural foraminal stenosis and significant endplate osteophytosis the overall appearance is very similar to a previous CT cervical spine back in August 2014 no acute findings. Diagnosis Primary Impression: Headache due to pansinusitis Patient Instructions: General Instructions, Sinusitis (GEN) Scripts Hydrocodone-Acetaminophen ([place]) 5 Mg-325 Mg Tab 1 TAB PO Q6H Y for PAIN, #15 TAB 0 Refills Prov: Joseph Eric MD 06/08/17 Amoxicillin-Clavulanate (Augmentin) 875-125 Mg Tab 1 TAB PO BID for Infection for 10 Days, #20 TAB 0 Refills Prov: Joseph Eric MD 06/08/17 Disposition: 01 DISCHARGE HOME Condition: Stable Joseph Eric MD Jun 08, 2017 07:26
[2017-06-08] MEDS ORDERED: FURO20TA PO (07:35)
[2017-06-08] MEDS ORDERED: ZINC50TA2 PO (07:35)
[2017-06-08] MEDS ORDERED: CENTCHW4 CHEW (07:35)
[2017-06-08] MEDS ORDERED: MORPHINE SULFATE 4 MG/ML INJ IV PUSH ONE (07:45)
[2017-06-08] MEDS ORDERED: ONDANSETRON HCL 4 MG/2 ML VIAL IV PUSH ONE (07:45)
--- NOTE | 2017-06-08 09:09 | RADRPT ---
EXAM DATE/TIME: 06/08/2017 08:08 [facility] COMPARISON: CT BRAIN W/O CONTRAST, November 12, 2016, 20:39. CT BRAIN W/O CONTRAST, December 25, 2016, 18:14. INDICATIONS : Right side headache and neck pain with history of pituitary adenoma surgery. RADIATION DOSE: 56.35 CTDIvol (mGy) MEDICAL HISTORY : Hypertension. Cardiovascular disease pituitary adenoma SURGICAL HISTORY : Cholecystectomy. Hysterectomy.Appendectomy.pituitary adenoma surgery ENCOUNTER: Initial ACUITY: 2 weeks PAIN SCALE: 5/10 LOCATION: Right cranial TECHNIQUE: Multiple contiguous axial images were obtained of the head. Using automated exposure control and adj ustment of the mA and/or kV according to patient size, radiation dose was kept as low as reasonably a chievable to obtain optimal diagnostic quality images. DICOM format image data is available electro nically for review and comparison. FINDINGS: CEREBRUM: The ventricles are normal for age. Stable bilateral cortical atrophy white matter changes. No evidenc e of midline shift, mass lesion, hemorrhage or acute infarction. No extra-axial fluid collections ar e seen. POSTERIOR FOSSA: The cerebellum and brainstem are intact. The 4th ventricle is midline. The cerebellopontine angle i s unremarkable. EXTRACRANIAL: The visualized portion of the orbits is intact. There is chronic bilateral sinus disease involving th e right maxillary sinus, ethmoid sinuses and frontal sinuses bilaterally. There is chronic sinus dise ase and sphenoid sinuses. These findings are not significantly changed compared to the prior studies. SKULL: The calvaria is intact. No evidence of skull fracture. No significant changes. CONCLUSION: 1. No focal or acute intracranial hemorrhage 2. Stable bilateral cortical atrophy and chronic white matter changes 3. Chronic pansinusitis without significant change compared to the prior studies. Ruben Leonardo MD on June 08, 2017 at 9:04 Board Certified Radiologist. This report was verified electronically.
[2017-06-08] MEDS ORDERED: KETOROLAC TROMETHAMINE 30 MG/ML (IVP) VIAL IV PUSH ONE (09:45)
--- NOTE | 2017-06-08 10:10 | RADRPT ---
EXAM DATE/TIME: 06/08/2017 08:08 [facility] COMPARISON: CT CERVICAL SPINE W/O CONTRAST, August 21, 2014, 22:57. INDICATIONS : Right side headache and neck pain with history of pituitary adenoma surgery. RADIATION DOSE: 19.55 CTDIvol (mGy) MEDICAL HISTORY : Hypertension. Cardiovascular disease pituitary adenoma SURGICAL HISTORY : Appendectomy. Hysterectomy.Cholecystectomy. pituitary adenoma surgery, cervical fusion ENCOUNTER: Initial ACUITY: 2 weeks PAIN SCALE: 5/10 LOCATION: Right neck TECHNIQUE: Volumetric scanning of the cervical spine was performed. Multiplanar reconstructions in the sagittal, coronal and oblique axial planes were performed. Using automated exposure control and adjustment o f the mA and/or kV according to patient size, radiation dose was kept as low as reasonably achievable to obtain optimal diagnostic quality images. DICOM format image data is available electronically f or review and comparison. FINDINGS: Comparison is made to prior CT scan of the cervical spine performed in August 2014. The prior CT scan had demonstrated severe degenerative changes throughout the cervical spine with multilevel subluxatio ns (anterolisthesis at C2-3, C3-4, mild retrolisthesis at C5-6, and anterolisthesis at T1-2) as well as marked interspace narrowing, endplate sclerosis, and osteophytes throughout the cervical spine. O n today's examination, these abnormalities are stable in appearance. The atlantoaxial articulation i s intact. The posterior elements remain in normal alignment without evidence of locked or perched fa cets. There is also multilevel bony neural foraminal stenosis at almost all levels, with most severe narrowing on the right side at C2-3, bilaterally at C3-4. Bone density is diffusely decreased.. CONCLUSION: Diffuse severe degenerative changes throughout the cervical spine including multilevel subluxations, neural foraminal stenosis, and significant endplate osteophytosis. The overall appearance is very si milar to prior CT cervical spine August 2014. No acute findings. Gee Alejandro MD on June 08, 2017 at 10:02 Board Certified Radiologist. This report was verified electronically.
[2017-06-08] MEDS ORDERED: AUGM875T3 PO (10:31)
[2017-06-08] MEDS ORDERED: NORC5TAB PO (10:31)
== END 2017-06-08 11:13 | disposition home or self-care (01) ==
LOC: NEPE 07:14
DX: J32.4 Chronic pansinusitis (principal); E78.00 Pure hypercholesterolemia, unspecified; I10 Essential (primary) hypertension; I25.10 Atherosclerotic heart disease of native coronary artery without angina pectoris; I48.91 Unspecified atrial fibrillation; K21.9 Gastro-esophageal reflux disease without esophagitis; Z79.01 Long term (current) use of anticoagulants
CPT/HCPCS: 70450; 72125; 96374; 96375; 99283; J1885; J2270; J2405

== ENCOUNTER → 2017-07-08 | Outpatient (CLI) | payer MEDICARE ==
[~2017-07-08] MED LIST changes: +AUGM875T3 PO; +CENTCHW4 CHEW; -CYCL10TA PO; +FURO20TA PO; -HYDR-3533 PO; +NORC5TAB PO; -SILV1CRE20 TOPICAL; -TRAM50TA PO; +ZINC50TA2 PO
[2017-07-08 07:58] LABS: HEMATOCRIT 36.3 % (35.0-46.0); HEMOGLOBIN 12.1 GM/DL (11.6-15.3); MEAN CELL VOLUME 84.2 FL (80.0-100.0); MEAN CORPUSCULAR HEMOGLOBIN 28.1 PG (27.0-34.0); MEAN CORPUSCULAR HGB CONC 33.3 % (32.0-36.0); MEAN PLATELET VOLUME 7.6 FL (7.0-11.0); PLATELET COUNT 200 TH/MM3 (150-450); RED BLOOD COUNT 4.31 MIL/MM3 (4.00-5.30); RED CELL DISTRIBUTION WIDTH 20.5 % (11.6-17.2); WHITE BLOOD COUNT 5.7 TH/MM3 (4.0-11.0)
[2017-07-08 08:23] LABS: ALBUMIN 3.3 GM/DL (3.4-5.0); ALT (GPT) 21 U/L (10-53); AST (GOT) 25 U/L (15-37); BICARBONATE 28.3 MEQ/L (21.0-32.0); BLOOD UREA NITROGEN 15 MG/DL (7-18); CALCIUM 8.7 MG/DL (8.5-10.1); CHLORIDE 106 MEQ/L (98-107); CHOLESTEROL 111 MG/DL (120-200); CREATININE 1.07 MG/DL (0.50-1.00); GLOMERULAR FILTRATION RATE 49 ML/MIN (>89); GLUCOSE,FASTING 76 MG/DL (74-99); SODIUM (NA) 144 MEQ/L (136-145); TRIGLYCERIDES 96 MG/DL (42-150)
[2017-07-08 08:31] LABS: ALKALINE PHOSPHATASE 63 U/L (45-117); CHOLESTEROL/ HDL RATIO 1.53 RATIO; HDL CHOLESTEROL 72.1 MG/DL (40.0-60.0); LDL CHOLESTEROL 20 MG/DL (0-99); TOTAL BILIRUBIN ADULT 0.8 MG/DL (0.2-1.0); TOTAL PROTEIN 6.4 GM/DL (6.4-8.2)
== END ==
LOC: CLAB 07:18
PROVIDERS: ATTEND Internal Medicine Interventional Cardiology
DX: B02.29 Other postherpetic nervous system involvement (principal); G45.9 Transient cerebral ischemic attack, unspecified; I48.91 Unspecified atrial fibrillation; K31.84 Gastroparesis; E78.5 Hyperlipidemia, unspecified; M54.12 Radiculopathy, cervical region; I35.0 Nonrheumatic aortic (valve) stenosis; I42.0 Dilated cardiomyopathy; R06.02 Shortness of breath; I50.32 Chronic diastolic (congestive) heart failure
CPT/HCPCS: 36415; 80053; 80061; 84443; 85027